=== PATIENT | female | born 1950 | race Caucasian/White ===

== ENCOUNTER → 2016-05-13 | Outpatient (REF) | payer MEDICARE, MEDICAID ==
[2016-05-13 12:22] LABS: ALBUMIN 3.6 GM/DL (3.2-5.2); ALBUMIN/GLOBULIN RATIO 1.03 (1.00-1.93); BILIRUBIN,TOTAL 0.5 MG/DL (0.2-1.0); CALCIUM LEVEL 9.3 MG/DL (8.8-10.2); CREATININE FOR GFR 1.02 MG/DL (0.55-1.02); GLOMERULAR FILTRATION RATE 57.4 (>45); POTASSIUM SERUM 4.2 MEQ/L (3.5-5.1); TOTAL PROTEIN 7.1 GM/DL (6.4-8.2)
== END ==
LOC: M SFHCPLAZ 09:44
PROVIDERS: ATTEND Nurse Practitioner Family
DX: I10 Essential (primary) hypertension (principal); E55.9 Vitamin D deficiency, unspecified

== ENCOUNTER → 2016-09-17 | Outpatient (REF) | payer MEDICARE, MEDICAID ==
[2016-09-17 11:54] LABS: CALCIUM LEVEL 9.9 MG/DL (8.8-10.2); CREATININE FOR GFR 1.17 MG/DL (0.55-1.02); POTASSIUM SERUM 4.9 MEQ/L (3.5-5.1)
== END ==
LOC: M SFHCPLAZ 08:58
PROVIDERS: ATTEND Nurse Practitioner Family
DX: I10 Essential (primary) hypertension (principal); E55.9 Vitamin D deficiency, unspecified

== ENCOUNTER → 2016-10-08 | Outpatient (CLI) | payer MEDICARE, MEDICAID ==
--- NOTE | 2016-10-08 15:29 | REPMRS ---
Patient History The patient states she had a clinical breast exam in 10/04 Patient is postmenopausal and is nulliparous. Family history of unknown cancer in sister. Digital Woman Screen Mammo: October 08, 2016 - Exam #: [id number] Bilateral CC and MLO view(s) were taken. Technologist: Amie Huff, Technologist Prior study comparison: January 08, 2015, digital woman screen mammo performed at [facility] to [facility]. August 04, 2013, digital woman screen mammo performed at [facility] to [facility]. FINDINGS: There are scattered fibroglandular densities. There has been no change in the appearance of the mammogram from the prior studies. There is a mild amount of residual fibroglandular tissue which is fairly symmetric. There is no interval development of dominant mass, architectural distortion, or clustered microcalcification suggestive of malignancy. ASSESSMENT: BI-RADS/ACR category 1 mammogram. Negative. Recommendation Routine screening mammogram in 1 year (for women over age 40). This mammogram was interpreted with the aid of an FDA-approved computer-aided dectection system. Electronically Signed By: Tavares Bradley MD 10/08/16 [id number]
--- NOTE | 2016-10-14 15:17 | DEXA ---
AP SPINE L1 - L4 1.094 -0.8 0.8 LT FEMUR TOTAL 0.908 -0.8 0.6 RT FEMUR TOTAL 0.870 -1.1 0.3 TOTAL BODY TOTAL OTHER DUAL FEMUR FRAX* ASSESSMENT Risk factors: None. 10 year probability of fracture Major osteoporotic fracture 10.6 % Hip fracture 1.9 % COMMENTS: Normal bone densitometry of the spine. There is low bone density of the hips. FOLLOW-UP: Recommendation for the next bone density exam: 2 years. ELLE
== END ==
LOC: M WHC 12:45
PROVIDERS: ATTEND Nurse Practitioner Family
DX: Z12.31 Encounter for screening mammogram for malignant neoplasm of breast (principal); Z13.820 Encounter for screening for osteoporosis; M81.0 Age-related osteoporosis without current pathological fracture
CPT/HCPCS: 77080; G0202

== ENCOUNTER → 2017-01-26 | Outpatient (REF) | payer MEDICARE, MEDICAID ==
[2017-01-26 12:49] LABS: ALBUMIN 3.7 GM/DL (3.2-5.2); BILIRUBIN,TOTAL 0.4 MG/DL (0.2-1.0); CALCIUM LEVEL 9.3 MG/DL (8.8-10.2); CREATININE FOR GFR 1.11 MG/DL (0.55-1.02); POTASSIUM SERUM 4.2 MEQ/L (3.5-5.1); TOTAL PROTEIN 7.4 GM/DL (6.4-8.2)
[2017-01-26 13:28] LABS: BASO # 0.1 10^3/uL (0.0-0.2); BASO % 0.6 % (0.0-1.0); EOS # 0.1 10^3/uL (0.0-0.50); EOS % 0.9 % (0.0-3.0); IMMATURE GRANULOCYTE % 0.5 % (0-0); LYMPH % 15.9 % (24.0-44.0); MEAN CORPUSCULAR HEMOGLOBIN 27.4 pg (27.0-33.0); MEAN CORPUSCULAR HGB CONC 31.3 g/dl (32.0-36.5); MEAN CORPUSCULAR VOLUME 87.7 fl (80.0-96.0); MONO # 0.6 10^3/uL (0.0-0.8); MONO % 4.8 % (0.0-5.0); NEUTROPHILS # 9.8 10^3/uL (1.8-7.7); NEUTROPHILS % 77.3 % (36.0-66.0); PLATELET COUNT, AUTOMATED 493 10^3/uL (150-450); RED CELL DISTRIBUTION WIDTH 13.8 % (11.5-14.5); WHITE BLOOD COUNT 12.7 10^3/uL (4.0-10.0)
[2017-01-26 13:32] LABS: ADD MANUAL DIFFER NO; DIFF SLIDE NUMBER 136
== END ==
LOC: M SFHCPLAZ 09:01
PROVIDERS: ATTEND Nurse Practitioner Family
DX: Z00.00 Encounter for general adult medical examination without abnormal findings (principal); I10 Essential (primary) hypertension; E78.2 Mixed hyperlipidemia

== ENCOUNTER 2017-04-29 14:26 | Inpatient (IN) | payer MEDICARE, MEDICAID ==
[2017-04-29 16:57] LABS: BASO # 0.1 10^3/uL (0.0-0.2); BASO % 0.5 % (0.0-1.0); EOS # 0.2 10^3/uL (0.0-0.50); EOS % 1.4 % (0.0-3.0); HEMATOCRIT 44.1 % (36.0-47.0); HEMOGLOBIN 14.4 g/dl (12.0-16.0); IMMATURE GRANULOCYTE # 0.1 10^3/uL (0-0); IMMATURE GRANULOCYTE % 0.6 % (0-0); LYMPH # 1.7 10^3/uL (1.5-4.5); MEAN CORPUSCULAR HEMOGLOBIN 27.7 pg (27.0-33.0); MEAN CORPUSCULAR HGB CONC 32.7 g/dl (32.0-36.5); MEAN CORPUSCULAR VOLUME 84.8 fl (80.0-96.0); MONO # 0.6 10^3/uL (0.0-0.8); MONO % 5.9 % (0.0-5.0); NEUTROPHILS # 7.9 10^3/uL (1.8-7.7); NEUTROPHILS % 75.6 % (36.0-66.0); PLATELET COUNT, AUTOMATED 444 10^3/uL (150-450); RED CELL DISTRIBUTION WIDTH 13.8 % (11.5-14.5); WHITE BLOOD COUNT 10.5 10^3/uL (4.0-10.0)
[2017-04-29 17:22] LABS: ANION GAP 10 MEQ/L (8-16); BLOOD UREA NITROGEN 25 MG/DL (7-18); CALCIUM LEVEL 9.2 MG/DL (8.8-10.2); CARBON DIOXIDE LEVEL 27 MEQ/L (21-32); CHLORIDE LEVEL 106 MEQ/L (98-107); CPK CREATINE PHOSPHOKINASE 74 U/L (26-192); CREATININE FOR GFR 1.02 MG/DL (0.55-1.02); GLOMERULAR FILTRATION RATE 57.2 (>45); GLUCOSE, FASTING 108 MG/DL (80-110); POTASSIUM SERUM 3.9 MEQ/L (3.5-5.1); SODIUM LEVEL 143 MEQ/L (136-145); TROPONIN I < 0.02 NG/ML (< 0.10)
[2017-04-29 17:28] LABS: CK-MB VALUE MASS 1.5 NG/ML (0.0-3.6); MB/CK RELATIVE INDEX 2.02 (< OR =4)
[2017-04-29] MEDS: LOSARTAN 50 MG TAB PO (18:38)
[2017-04-29] MEDS: amLODIPine 5 MG TAB PO (18:38)
[2017-04-29] MEDS: METOPROLOL 5 MG/5 ML VIAL IV ×4 (19:10→19:30)
[2017-04-29] MEDS: METOPROLOL TART 25 MG TABLET PO (20:00)
[2017-04-29] MEDS: NITROGLYCERIN 2% OINT 1 GM *U/D* PKT TOP (21:01)
[2017-04-29] MEDS ORDERED: ONDANSETRON 4MG/2ML VIAL (J2405) IV (23:45)
[2017-04-30] MEDS ORDERED: ENOXAPARIN 120 MG/0.8 ML SYR (J1650) SC
[2017-04-30] MEDS ORDERED: SLF 3 ML SYR IV (01:15)
[2017-04-30] MEDS: ACETAMINOPHEN TAB 650MG DOSE (2X325MG) PO ×2 (01:43→08:27)
[2017-04-30] MEDS: PANTOPRAZOLE 40MG TAB (PROTONIX) PO (01:43)
[2017-04-30] MEDS: ENOXAPARIN 120 MG/0.8 ML SYR (J1650) SC (01:44)
[2017-04-30 05:19] LABS: HEMATOCRIT 39.3 % (36.0-47.0); MEAN CORPUSCULAR HEMOGLOBIN 28.2 pg (27.0-33.0); MEAN CORPUSCULAR HGB CONC 33.1 g/dl (32.0-36.5); MEAN CORPUSCULAR VOLUME 85.2 fl (80.0-96.0); PLATELET COUNT, AUTOMATED 356 10^3/uL (150-450); RED BLOOD COUNT 4.61 10^6/uL (4.00-5.40); WHITE BLOOD COUNT 10.6 10^3/uL (4.0-10.0)
[2017-04-30 05:37] LABS: ANION GAP 10 MEQ/L (8-16); BLOOD UREA NITROGEN 22 MG/DL (7-18); CALCIUM LEVEL 8.9 MG/DL (8.8-10.2); CARBON DIOXIDE LEVEL 26 MEQ/L (21-32); CHLORIDE LEVEL 107 MEQ/L (98-107); CPK CREATINE PHOSPHOKINASE 77 U/L (26-192); CREATININE FOR GFR 0.96 MG/DL (0.55-1.02); GLOMERULAR FILTRATION RATE > 60.0 (>45); GLUCOSE, FASTING 104 MG/DL (80-110); POTASSIUM SERUM 3.1 MEQ/L (3.5-5.1); SODIUM LEVEL 143 MEQ/L (136-145); TROPONIN I 0.02 NG/ML (< 0.10)
[2017-04-30 05:43] LABS: CK-MB VALUE MASS 1.8 NG/ML (0.0-3.6); MB/CK RELATIVE INDEX 2.33 (< OR =4)
[2017-04-30] MEDS: SLF 3 ML SYR IV (05:51)
[2017-04-30] MEDS: ATORVASTATIN 20 MG TAB PO (08:26)
[2017-04-30] MEDS: LOSARTAN 50 MG TAB PO (08:26)
[2017-04-30] MEDS: amLODIPine 5 MG TAB PO (08:27)
[2017-04-30] MEDS ORDERED: ENOXAPARIN 40 MG/0.4 ML SYRINGE (J1650) SC (09:00)
[2017-04-30 11:08] LABS: CK-MB VALUE MASS 1.7 NG/ML (0.0-3.6); CPK CREATINE PHOSPHOKINASE 81 U/L (26-192); MB/CK RELATIVE INDEX 2.09 (< OR =4); TROPONIN I 0.02 NG/ML (< 0.10)
== END 2017-04-30 12:48 | disposition home or self-care (01) | DRG 309 ==
LOC: M PCU 04-30 00:48 → M ED 14:26 → M ED INP 22:19
DX: I48.0 Paroxysmal atrial fibrillation (principal); Z68.42 Body mass index [BMI] 45.0-49.9, adult; I10 Essential (primary) hypertension; E78.5 Hyperlipidemia, unspecified; K21.9 Gastro-esophageal reflux disease without esophagitis; J30.9 Allergic rhinitis, unspecified; R11.2 Nausea with vomiting, unspecified; E66.01 Morbid (severe) obesity due to excess calories; M19.90 Unspecified osteoarthritis, unspecified site; Z86.73 Personal history of transient ischemic attack (TIA), and cerebral infarction without residual deficits; Z79.899 Other long term (current) drug therapy

== ENCOUNTER → 2017-05-13 | Outpatient (REF) | payer MEDICARE ==
[2017-05-13 13:46] LABS: ANION GAP 11 MEQ/L (8-16); BLOOD UREA NITROGEN 23 MG/DL (7-18); CALCIUM LEVEL 9.4 MG/DL (8.8-10.2); CARBON DIOXIDE LEVEL 26 MEQ/L (21-32); CHLORIDE LEVEL 106 MEQ/L (98-107); GLOMERULAR FILTRATION RATE 52.4 (>45); GLUCOSE, FASTING 115 MG/DL (70-100); POTASSIUM SERUM 4.2 MEQ/L (3.5-5.1); SODIUM LEVEL 143 MEQ/L (136-145)
== END ==
LOC: M SFHCPLAZ 11:38
DX: E87.6 Hypokalemia (principal)
CPT/HCPCS: 80048

== ENCOUNTER → 2017-06-17 | Outpatient (REF) | payer MEDICARE ==
[2017-06-17 13:24] LABS: ALBUMIN 3.4 GM/DL (3.2-5.2); ALBUMIN/GLOBULIN RATIO 0.94 (1.00-1.93); ALKALINE PHOSPHATASE 120 U/L (45-117); ALT/SGPT 24 U/L (12-78); ANION GAP 9 MEQ/L (8-16); AST/SGOT 19 U/L (7-37); BILIRUBIN,TOTAL 0.5 MG/DL (0.2-1.0); BLOOD UREA NITROGEN 26 MG/DL (7-18); CALCIUM LEVEL 9.2 MG/DL (8.8-10.2); CARBON DIOXIDE LEVEL 28 MEQ/L (21-32); CHLORIDE LEVEL 105 MEQ/L (98-107); CREATININE FOR GFR 1.08 MG/DL (0.55-1.30); GLOMERULAR FILTRATION RATE 53.5 (>45); GLUCOSE, FASTING 102 MG/DL (70-100); SODIUM LEVEL 142 MEQ/L (136-145)
== END ==
LOC: M SFHCPLAZ 09:13
DX: I10 Essential (primary) hypertension (principal)
CPT/HCPCS: 80053

== ENCOUNTER → 2018-03-19 | Outpatient (CLI) | payer MEDICARE ==
[2018-03-19 11:49] LABS: BASO # 0.1 10^3/uL (0.0-0.2); BASO % 0.7 % (0.0-1.0); EOS # 0.3 10^3/uL (0.0-0.50); EOS % 2.2 % (0.0-3.0); IMMATURE GRANULOCYTE % 0.7 % (0-3.0); LYMPH # 2.3 10^3/uL (1.5-4.5); MEAN CORPUSCULAR HEMOGLOBIN 27.6 pg (27.0-33.0); MEAN CORPUSCULAR HGB CONC 31.8 g/dl (32.0-36.5); MEAN CORPUSCULAR VOLUME 86.6 fl (80.0-96.0); MONO # 0.7 10^3/uL (0.0-0.8); MONO % 5.6 % (0.0-5.0); NEUTROPHILS # 8.5 10^3/uL (1.8-7.7); NEUTROPHILS % 71.8 % (36.0-66.0); PLATELET COUNT, AUTOMATED 469 10^3/uL (150-450); RED BLOOD COUNT 5.08 10^6/uL (4.00-5.40); RED CELL DISTRIBUTION WIDTH 14.1 % (11.5-14.5); WHITE BLOOD COUNT 11.8 10^3/uL (4.0-10.0)
[2018-03-19 12:15] LABS: ALBUMIN 3.6 GM/DL (3.2-5.2); ALBUMIN/GLOBULIN RATIO 1.03 (1.00-1.93); ALKALINE PHOSPHATASE 116 U/L (45-117); ALT/SGPT 26 U/L (12-78); ANION GAP 8 MEQ/L (8-16); AST/SGOT 11 U/L (7-37); BILIRUBIN,TOTAL 0.3 MG/DL (0.2-1.0); BLOOD UREA NITROGEN 31 MG/DL (7-18); CALCIUM LEVEL 9.7 MG/DL (8.8-10.2); CARBON DIOXIDE LEVEL 27 MEQ/L (21-32); CHLORIDE LEVEL 106 MEQ/L (98-107); CREATININE FOR GFR 1.47 MG/DL (0.55-1.30); GLOMERULAR FILTRATION RATE 37.4 (>39); GLUCOSE, FASTING 109 MG/DL (70-100); POTASSIUM SERUM 4.3 MEQ/L (3.5-5.1); SODIUM LEVEL 141 MEQ/L (136-145); TOTAL PROTEIN 7.1 GM/DL (6.4-8.2)
== END ==
LOC: M LAB 11:07
DX: R09.02 Hypoxemia (principal)
CPT/HCPCS: 71046

== ENCOUNTER → 2018-03-29 | Outpatient (REF) | payer MEDICARE ==
[2018-03-29 16:06] LABS: BASO # 0.1 10^3/uL (0.0-0.2); BASO % 0.7 % (0.0-1.0); EOS # 0.3 10^3/uL (0.0-0.50); EOS % 2.7 % (0.0-3.0); HEMATOCRIT 42.7 % (36.0-47.0); HEMOGLOBIN 13.6 g/dl (12.0-15.5); IMMATURE GRANULOCYTE % 0.4 % (0-3.0); LYMPH % 17.7 % (24.0-44.0); MEAN CORPUSCULAR HEMOGLOBIN 27.6 pg (27.0-33.0); MEAN CORPUSCULAR HGB CONC 31.9 g/dl (32.0-36.5); MEAN CORPUSCULAR VOLUME 86.6 fl (80.0-96.0); MONO # 0.6 10^3/uL (0.0-0.8); MONO % 5.7 % (0.0-5.0); NEUTROPHILS % 72.8 % (36.0-66.0); PLATELET COUNT, AUTOMATED 416 10^3/uL (150-450); RED BLOOD COUNT 4.93 10^6/uL (4.00-5.40); RED CELL DISTRIBUTION WIDTH 14.6 % (11.5-14.5)
[2018-03-29 16:07] LABS: ALBUMIN 3.9 GM/DL (3.2-5.2); ALBUMIN/GLOBULIN RATIO 1.11 (1.00-1.93); ALKALINE PHOSPHATASE 101 U/L (45-117); ALT/SGPT 25 U/L (12-78); ANION GAP 7 MEQ/L (8-16); AST/SGOT 19 U/L (7-37); BILIRUBIN,TOTAL 0.4 MG/DL (0.2-1.0); BLOOD UREA NITROGEN 14 MG/DL (7-18); CALCIUM LEVEL 9.5 MG/DL (8.8-10.2); CARBON DIOXIDE LEVEL 30 MEQ/L (21-32); CHLORIDE LEVEL 102 MEQ/L (98-107); CREATININE FOR GFR 1.35 MG/DL (0.55-1.30); GLOMERULAR FILTRATION RATE 41.3 (>39); GLUCOSE, FASTING 102 MG/DL (70-100); SODIUM LEVEL 139 MEQ/L (136-145); TOTAL PROTEIN 7.4 GM/DL (6.4-8.2)
== END ==
LOC: M SFHCPLAZ 12:17
DX: N17.9 Acute kidney failure, unspecified (principal); D72.829 Elevated white blood cell count, unspecified
CPT/HCPCS: 80053

== ENCOUNTER → 2018-04-02 | Outpatient (REF) | payer MEDICARE ==
[~2018-04-02] MED LIST: AMLO5TAB4 PO; ATOR40TA75 PO; BISO5TAB5 PO; LOSA-4 PO; PANT40TA3 PO; XARE20TA PO
[2018-04-02 18:19] LABS: AMORPHOUS SEDIMENT LARGE (NEGATIVE); APPEARANCE, URINE TURBID (CLEAR); BACTERIA, URINE AUTO 3+ (NEGATIVE); BILIRUBIN, URINE AUTO 1+ (NEGATIVE); BLOOD, URINE BLOOD NEGATIVE (NEGATIVE); COLOR, URINE YELLOW (YELLOW); GLUCOSE, URINE (UA) AUTO NEGATIVE (NEGATIVE); KETONE, URINE AUTO NEGATIVE (NEGATIVE); LEUKOCYTE ESTERASE, URINE AUTO 2+ (NEGATIVE); MUCUS, URINE SMALL (NEGATIVE); NITRITE, URINE AUTO NEGATIVE (NEGATIVE); PROTEIN, URINE AUTO 2+ mg/dL (NEGATIVE); RBC, URINE AUTO 0 /HPF (0-3); SPECIFIC GRAVITY URINE AUTO 1.025 (1.002-1.035); SQUAMOUS EPITHELIAL CELL UR AU 14 /HPF (0-6); WBC, URINE AUTO 10 /HPF (0-3)
[2018-04-02 18:48] LABS: MAU/CREAT RATIO 70.5 MCG/MG (0.0-30.0)
== END ==
LOC: M SFHCPLAZ 12:46
PROVIDERS: ATTEND Nurse Practitioner Family
DX: N17.9 Acute kidney failure, unspecified (principal); I10 Essential (primary) hypertension

== ENCOUNTER → 2018-06-23 | Outpatient (REF) | payer MEDICARE ==
[~2018-06-23] MED LIST changes: -AMLO5TAB4 PO; +AMLO5TAB6 PO; -LOSA-4 PO; +LOSA100T50 PO
[2018-06-23 18:33] LABS: CREATININE FOR GFR 1.34 MG/DL (0.55-1.30); GLOMERULAR FILTRATION RATE 41.6 (>39); POTASSIUM SERUM 4.6 MEQ/L (3.5-5.1)
[2018-06-23 18:34] LABS: ALBUMIN 3.5 GM/DL (3.2-5.2); BILIRUBIN,TOTAL 0.5 MG/DL (0.2-1.0); CALCIUM LEVEL 8.4 MG/DL (8.8-10.2); CHOLESTEROL RISK RATIO 2.442 (<5); TOTAL PROTEIN 6.9 GM/DL (6.4-8.2)
[2018-06-23 19:01] LABS: BASO # 0.1 10^3/uL (0.0-0.2); BASO % 0.4 % (0.0-1.0); EOS # 0.2 10^3/uL (0.0-0.50); EOS % 1.2 % (0.0-3.0); HEMATOCRIT 41.4 % (36.0-47.0); HEMOGLOBIN 13.1 g/dl (12.0-15.5); LYMPH % 13.3 % (24.0-44.0); MEAN CORPUSCULAR HEMOGLOBIN 27.6 pg (27.0-33.0); MEAN CORPUSCULAR HGB CONC 31.6 g/dl (32.0-36.5); MEAN CORPUSCULAR VOLUME 87.2 fl (80.0-96.0); MONO # 0.8 10^3/uL (0.0-0.8); MONO % 5.2 % (0.0-5.0); NEUTROPHILS # 11.7 10^3/uL (1.8-7.7); NEUTROPHILS % 79.5 % (36.0-66.0); PLATELET COUNT, AUTOMATED 443 10^3/uL (150-450); RED BLOOD COUNT 4.75 10^6/uL (4.00-5.40); WHITE BLOOD COUNT 14.7 10^3/uL (4.0-10.0)
== END ==
LOC: M SFHCPLAZ 15:28
PROVIDERS: ATTEND Nurse Practitioner Family
DX: D72.829 Elevated white blood cell count, unspecified (principal); N18.3 Chronic kidney disease, stage 3 (moderate); E78.2 Mixed hyperlipidemia

== ENCOUNTER → 2018-08-01 | Outpatient (CLI) | payer MEDICARE ==
[~2018-08-01] MED LIST changes: +CITA20TA6 PO
--- NOTE | 2018-08-12 17:48 | SLEEPCENT ---
DATE OF PROCEDURE: 08/01/2018 REFERRING PROVIDER: ALIRIO Blunt INTERPRETATION: Nocturnal polysomnography was performed for the determination of continuous positive airway pressure (CPAP) therapy in this patient with known obstructive sleep apnea with an apnea-hypopnea index (AHI) of 18 and an respiratory disturbance index (RDI) of 26.2 on polysomnogram done in November of 2011. Titration shortly after that study showed elimination of disordered breathing events on 7 cm of water pressure. It had been noted that central events were starting to emerge at that pressure. She had not tolerated CPAP device and had turned it in, but wanted to now retry therapy. She had sleep apnea syndrome symptoms with excessive daytime sleepiness, mood disorders, snoring, observed apneas, gasping respirations, nonrestorative sleep. She also has comorbidities of a history of CVA and diabetes mellitus, type 2. A total of 8 hours and 13 minutes of data was reviewed with 375 minutes of sleep identified. Sleep latency was 10 minutes. Rapid eye movement (REM) latency was 153.5 minutes. No slow wave sleep was identified. Sleep efficiency was decreased at 77.2%. EKG showed normal sinus rhythm with an average heart rate of 64 beats per minute. Speeding and slowing was noted surrounding some respiratory events. No epileptiform discharge was observed. The patient had been fit with a ResMed AirFit F20 full-face mask of medium size, 4 cm of water pressure was applied to the circuit and the lights were dimmed. CPAP was taken to a high of 12 cm of water pressure. At that point, she was turned to bilevel therapy with the range of an inspiratory positive airway pressure (IPAP) of 14 and expiratory positive airway pressure (EPAP) of 9 to 10. A 2 liter bleed in was added. However, on reviewing the data, she appeared to do best on CPAP at 10 cm of water pressure. On that pressure, her apnea-hypopnea index (AHI) was 0 and respiratory arousal index (BLUE) was 0.6. Periodic limb movement index was 2.5. There is no carolee listed for this pressure on the printout, but it appears that her saturations were predominantly in the 90th percentile with a carolee was perhaps 88%. REM sleep was seen on this pressure with a reasonably good waveform. No supine REM sleep was observed throughout the entire titration, and, in fact, minimum supine sleep was observed during the study. IMPRESSION: 1. Obstructive sleep apnea, moderate, reasonably palliated on CPAP at 10 cm of water pressure. REM sleep was seen on this pressure with a reasonably good waveform. Minimal supine sleep was seen during the entire titration study. RECOMMENDATIONS: Recommend patient continue CPAP therapy at the above pressure via a medium ResMed AirFit F20 full face mask or mask of her preference. Clinical correlation will be necessary to ensure eradication of symptoms. Also, after the patient is tolerating CPAP therapy, recommend obtaining a nocturnal oximetry on CPAP to ensure eradication of nocturnal hypoxemia.
== END ==
LOC: M SLEEP 19:36
PROVIDERS: ATTEND Internal Medicine Pulmonary Disease
DX: G47.33 Obstructive sleep apnea (adult) (pediatric) (principal)

== ENCOUNTER → 2018-12-24 | Outpatient (REF) | payer MEDICARE ==
[2018-12-24 13:06] LABS: ALBUMIN 3.6 GM/DL (3.2-5.2); BILIRUBIN,TOTAL 0.3 MG/DL (0.2-1.0); CALCIUM LEVEL 9.7 MG/DL (8.8-10.2); CREATININE FOR GFR 1.11 MG/DL (0.55-1.30); GLOMERULAR FILTRATION RATE 51.7 (>39); POTASSIUM SERUM 4.5 MEQ/L (3.5-5.1); TOTAL PROTEIN 7.1 GM/DL (6.4-8.2)
== END ==
LOC: M SFHCPLAZ 10:16
PROVIDERS: ATTEND Nurse Practitioner Family
DX: I10 Essential (primary) hypertension (principal)

== ENCOUNTER → 2019-03-07 | Outpatient (REF) | payer MEDICARE ==
[~2019-03-07] MED LIST changes: -BISO5TAB5 PO; +BISO5TAB9 PO
[2019-03-07 14:46] LABS: APPEARANCE, URINE MANUAL TURBID (CLEAR)
[2019-03-07 14:47] LABS: COLOR, URINE MANUAL YELLOW (YELLOW)
[2019-03-07 14:50] LABS: BILIRUBIN, URINE MANUAL NEGATIVE (NEGATIVE); BLOOD URINE MANUAL NEGATIVE (NEGATIVE); GLUCOSE, URINE (UA) MANUAL NEGATIVE (NEGATIVE); KETONE, URINE MANUAL NEGATIVE (NEGATIVE); LEUKOCYTE ESTERASE, URINE MAN NEGATIVE (NEGATIVE); NITRITE, URINE MANUAL NEGATIVE (NEGATIVE); PROTEIN, URINE MANUAL NEGATIVE (NEGATIVE); UROBILINOGEN, URINE MANUAL NORMAL (NORMAL)
[2019-03-07 15:00] LABS: SQUAMOUS EPITHELIAL CELL URINE MOD AMOUNT /hpf (SMALL AMT)
[2019-03-07 15:01] LABS: AMORPHOUS SEDIMENT, URINE LARGE AMOUNT (NEGATIVE); RBC, URINE NONE SEEN /hpf (0-3); WBC, URINE 0-1 /hpf (0-3)
[2019-03-07 15:02] LABS: BACTERIA, URINE NONE SEEN; HYALINE CAST, URINE NONE SEEN /lpf (0-1)
== END ==
LOC: M SFHCPLAZ 14:19
PROVIDERS: ATTEND Family Medicine
DX: N39.41 Urge incontinence (principal)

== ENCOUNTER → 2019-03-23 | Outpatient (REF) | payer MEDICARE ==
[2019-03-23 18:06] LABS: APPEARANCE, URINE MANUAL TURBID (CLEAR); COLOR, URINE MANUAL YELLOW (YELLOW)
[2019-03-23 18:07] LABS: BILIRUBIN, URINE MANUAL NEGATIVE (NEGATIVE); BLOOD URINE MANUAL NEGATIVE (NEGATIVE); GLUCOSE, URINE (UA) MANUAL NEGATIVE (NEGATIVE); KETONE, URINE MANUAL NEGATIVE (NEGATIVE); LEUKOCYTE ESTERASE, URINE MAN TRACE (NEGATIVE); NITRITE, URINE MANUAL NEGATIVE (NEGATIVE); PH,URINE MAN 5.5 UNITS (5.0 - 7.0); PROTEIN, URINE MANUAL NEGATIVE (NEGATIVE); UROBILINOGEN, URINE MANUAL NORMAL (NORMAL)
[2019-03-23 19:41] LABS: AMORPHOUS SEDIMENT, URINE LARGE AMOUNT (NEGATIVE); BACTERIA, URINE NONE SEEN; MUCUS, URINE MOD AMOUNT (NEGATIVE); RBC, URINE NONE SEEN /hpf (0-3); SQUAMOUS EPITHELIAL CELL URINE LARGE AMOUNT /hpf (SMALL AMT)
[2019-03-23 19:42] LABS: HYALINE CAST, URINE NONE SEEN /lpf (0-1)
== END ==
LOC: M SMT 17:34
PROVIDERS: ATTEND Nurse Practitioner Women's Health
DX: N39.41 Urge incontinence (principal)

== ENCOUNTER → 2019-04-28 | Outpatient (CLI) | payer MEDICARE ==
[2019-04-28 13:36] LABS: CREATININE FOR GFR 1.15 MG/DL (0.55-1.30); GLOMERULAR FILTRATION RATE 49.5 (>39)
== END ==
LOC: M LAB 11:37
PROVIDERS: ATTEND Psychiatry & Neurology Neurology
DX: I10 Essential (primary) hypertension (principal)

== ENCOUNTER → 2019-05-31 | Outpatient (REF) | payer MEDICARE ==
[~2019-05-31] MED LIST changes: +BISO5TAB14 PO; -BISO5TAB9 PO
[2019-05-31 17:57] LABS: HEMATOCRIT 47.1 % (36.0-47.0); HEMOGLOBIN 14.4 g/dl (12.0-15.5); MEAN CORPUSCULAR HGB CONC 30.6 g/dl (32.0-36.5); MEAN CORPUSCULAR VOLUME 88.2 fl (80.0-96.0); PLATELET COUNT, AUTOMATED 397 10^3/uL (150-450); RED BLOOD COUNT 5.34 10^6/uL (4.00-5.40); WHITE BLOOD COUNT 12.1 10^3/uL (4.0-10.0)
[2019-05-31 18:11] LABS: CREATININE FOR GFR 1.02 MG/DL (0.55-1.30); GLOMERULAR FILTRATION RATE 56.9 (>39); POTASSIUM SERUM 4.2 MEQ/L (3.5-5.1)
== END ==
LOC: M SFHCPLAZ 15:11
PROVIDERS: ATTEND Family Medicine
DX: I12.9 Hypertensive chronic kidney disease with stage 1 through stage 4 chronic kidney disease, or unspecified chronic kidney disease (principal); N18.3 Chronic kidney disease, stage 3 (moderate)

== ENCOUNTER → 2019-06-23 | Outpatient (REF) | payer MEDICARE ==
[2019-06-23 12:58] LABS: BASO # 0.1 10^3/uL (0.0-0.2); BASO % 0.5 % (0.0-1.0); EOS # 0.3 10^3/uL (0.0-0.5); EOS % 2.4 % (0.0-3.0); HEMATOCRIT 44.5 % (36.0-47.0); HEMOGLOBIN 13.9 g/dl (12.0-15.5); LYMPH # 1.8 10^3/uL (1.5-5.0); LYMPH % 16.3 % (24.0-44.0); MEAN CORPUSCULAR HEMOGLOBIN 27.6 pg (27.0-33.0); MEAN CORPUSCULAR HGB CONC 31.2 g/dl (32.0-36.5); MEAN CORPUSCULAR VOLUME 88.3 fl (80.0-96.0); MONO # 0.7 10^3/uL (0.0-0.8); MONO % 5.9 % (0.0-5.0); NEUTROPHILS # 8.2 10^3/uL (1.5-8.5); NEUTROPHILS % 74.3 % (36.0-66.0); PLATELET COUNT, AUTOMATED 396 10^3/uL (150-450); RED BLOOD COUNT 5.04 10^6/uL (4.00-5.40)
== END ==
LOC: M SFHCPLAZ 09:24
PROVIDERS: ATTEND Family Medicine
DX: D72.829 Elevated white blood cell count, unspecified (principal)

== ENCOUNTER → 2019-11-28 | Outpatient (CLI) | payer MEDICARE ==
[~2019-11-28] MED LIST changes: +AMLO1TAB24 PO; -AMLO5TAB6 PO; +PANT40TA29 PO; -PANT40TA3 PO
--- NOTE | 2019-12-15 12:24 | REPMRS ---
Patient History The patient states she has not had a clinical breast exam in over a year. Patient is postmenopausal and is nulliparous. No known family history of cancer. No Hormone Replacement Therapy Digital Woman Screen Mammo: November 28, 2019 - Exam #: [id number] Bilateral CC and MLO view(s) were taken. Technologist: Amie Huff, Technologist Prior study comparison: October 08, 2016, digital woman screen mammo performed at [facility]. January 08, 2015, digital woman screen mammo performed at [facility]. August 04, 2013, digital woman screen mammo performed at [facility]. FINDINGS: The breast tissue is almost entirely fat. The Volpara volumetric breast density category is: A. There has been no change in the appearance of the mammogram from the prior studies. There is no interval development of dominant mass, architectural distortion, or grouped microcalcification typical of malignancy. 3-D tomosynthesis shows no additional findings. Assessment: BI-RADS/ACR category 1 mammogram. Negative Mammogram. Recommendation Routine screening mammogram of both breasts in 1 year (for women over age 40). This patient's Lifetime Breast Cancer RIsk is estimated at 5.4 %. This mammogram was interpreted with the aid of an FDA-approved computer-aided dectection system. Electronically Signed By: Db Ellington MD 12/15/19 [id number]
== END ==
LOC: M WHC 08:58
PROVIDERS: ATTEND Family Medicine
DX: Z12.31 Encounter for screening mammogram for malignant neoplasm of breast (principal); Z78.0 Asymptomatic menopausal state

== ENCOUNTER → 2019-11-28 | Outpatient (REF) | payer MEDICARE ==
[2020-01-10 13:21] LABS: CALCIUM LEVEL 9.4 MG/DL (8.8-10.2); CREATININE FOR GFR 1.38 MG/DL (0.55-1.30); GLOMERULAR FILTRATION RATE 40.1 (>39); POTASSIUM SERUM 4.1 MEQ/L (3.5-5.1)
== END ==
LOC: M SFHCPLAZ 09:27
PROVIDERS: ATTEND Family Medicine
DX: I10 Essential (primary) hypertension (principal)

== ENCOUNTER → 2020-01-27 | Outpatient (REF) | payer MEDICARE ==
[2020-01-27 14:35] LABS: CREATININE FOR GFR 1.52 MG/DL (0.55-1.30); GLOMERULAR FILTRATION RATE 35.9 (>39); POTASSIUM SERUM 4.2 MEQ/L (3.5-5.1)
== END ==
LOC: M PLALAB 09:29
PROVIDERS: ATTEND Family Medicine
DX: N18.30 Chronic kidney disease, stage 3 unspecified (principal)

== ENCOUNTER → 2020-02-02 | Outpatient (CLI) | payer MEDICARE ==
--- NOTE | 2020-02-02 10:18 | REP ---
INDICATION: R94.4 DECREASED CALCULATED GFR COMPARISON: None. FINDINGS: Multiple ultrasonographic images of the right kidney show the right kidney to measure 9.6 x 5.1 x 5.7 cm . The renal cortical echotexture is unremarkable. There is renal cortical thinning. There are no masses. There is good corticomedullary differentiation. There is no hydronephrosis. There are no perinephric fluid collections. In the inferior pole of the right kidney there is an 8 mm sized echogenic focus which casts a slight acoustic shadow. Multiple ultrasonographic images of the left kidney show the left kidney to measure 10.6 x 5.2 x 5.1 cm. . The renal cortical echotexture is unremarkable. There is renal cortical thinning. There are no masses. There is good corticomedullary differentiation. There is no hydronephrosis. There are no perinephric fluid collections. . IMPRESSION: 1. There is bilateral renal cortical thinning. 2. Possible 8 mm size calculus in the inferior pole of the right kidney. <Electronically signed by David Akins > 02/02/20 [id number]
== END ==
LOC: M WHC 08:57
PROVIDERS: ATTEND Family Medicine
DX: R94.4 Abnormal results of kidney function studies (principal)

== ENCOUNTER 2020-11-13 18:40 | Inpatient (IN) | payer MEDICARE, OTHER ==
[~2020-11-13] VITALS: Ht 154.9 cm; Wt 121.5 kg
--- NOTE | 2020-11-13 20:11 | REPVR ---
PROCEDURE INFORMATION: Exam: CT Head Without Contrast Exam date and time: 11/13/2020 7:48 PM Age: 70 years old Clinical indication: Dizziness; Additional info: CVA - nursing interventions must not delay CT TECHNIQUE: Imaging protocol: Computed tomography of the head without contrast. Radiation optimization: All CT scans at this facility use at least one of these dose optimization techniques: automated exposure control; mA and/or kV adjustment per patient size (includes targeted exams where dose is matched to clinical indication); or iterative reconstruction. Other technique: STROKE PROTOCOL was implemented. COMPARISON: No relevant prior studies available. FINDINGS: Brain: There is no acute cortical infarction, intracranial hemorrhage or mass. Cerebral ventricles: No significant ventriculomegaly. Paranasal sinuses: Both maxillary antra are opacified and hypoplastic.The remainder of the paranasal sinuses appear clear. Mastoid air cells: The middle ear cavities and mastoid air cells are clear. Vasculature: Atherosclerosis. Bones/joints: Unremarkable. No acute fracture. Soft tissues: Unremarkable. IMPRESSION: No acute cerebral infarction or intracranial hemorrhage. ASSESSMENT: ASPECTS ([place] Stroke Program Early CT Score) is 10. Electronically signed by: Kaylan Simmons On 11/13/2020 20:10:58 PM
--- NOTE | 2020-11-13 20:18 | REP ---
INDICATION: CVA. COMPARISON: PA lateral 03/19/2018, AP 04/29/2017. TECHNIQUE: AP portable upright FINDINGS: The exam is a rotated towards the right. That said, the lung ayala are well inflated without effusion, acute infiltrate, atelectasis or mass. Heart size mildly prominent. No vascular redistribution or edema. Ectatic aorta is exaggerated by the rotation of the chest. There are degenerative changes in the spine and shoulders. No free air under the diaphragm. IMPRESSION: 1. Tortuous ectatic aorta, appearance exaggerated by chest rotation towards the right. It is not grossly changed from 2018. 2. No definite consolidation, german edema, pleural effusion or parenchymal mass. Mild prominence of cardiac silhouette, somewhat exaggerated AP portable technique and rotation. 3. Bones demineralized with degenerative changes spine and shoulders. <Electronically signed by Quinn Noriega > 11/13/202013
[2020-11-13] MEDS: DOCUSATE SODIUM 100MG CAPSULE PO SCH (21:00)
[2020-11-13 21:05] LABS: BASO # 0.1 10^3/uL (0.0-0.2); BASO % 0.4 % (0.0-1.0); EOS # 0.2 10^3/uL (0.0-0.5); EOS % 1.8 % (0.0-3.0); HEMATOCRIT 42.5 % (36.0-47.0); HEMOGLOBIN 13.3 g/dl (12.0-15.5); LYMPH # 1.5 10^3/uL (1.5-5.0); LYMPH % 11.9 % (24.0-44.0); MEAN CORPUSCULAR HEMOGLOBIN 27.4 pg (27.0-33.0); MEAN CORPUSCULAR HGB CONC 31.3 g/dl (32.0-36.5); MEAN CORPUSCULAR VOLUME 87.4 fl (80.0-96.0); MONO # 0.7 10^3/uL (0.0-0.8); MONO % 5.4 % (2.0-8.0); NEUTROPHILS # 9.9 10^3/uL (1.5-8.5); NEUTROPHILS % 79.8 % (36.0-66.0); PLATELET COUNT, AUTOMATED 371 10^3/uL (150-450); RED BLOOD COUNT 4.86 10^6/uL (4.00-5.40); WHITE BLOOD COUNT 12.4 10^3/uL (4.0-10.0)
[2020-11-13 21:16] LABS: INR 1.03; PROTHROMBIN TIME 13.7 SECONDS (12.5-14.3)
[2020-11-13 21:17] LABS: PARTIAL THROMBOPLASTIN TIME 31.1 SECONDS (24.2-38.5)
[2020-11-13 21:31] LABS: CK-MB VALUE MASS 2.8 NG/ML (<3.6); CPK CREATINE PHOSPHOKINASE 249 U/L (26-192); MB/CK RELATIVE INDEX 1.12 (< OR =4); TROPONIN I < 0.02 NG/ML (< 0.10)
[2020-11-13] MEDS ORDERED: LOSARTAN 50MG TABLET PO ONE (21:55)
[2020-11-13] MEDS ORDERED: bisoproloL fumarate 5 MG TAB PO ONE (21:55)
--- NOTE | 2020-11-13 22:43 | HPEPDOC ---
[facility] Medical History & Physical Date of Admission Nov 13, 2020 Date of Service: Nov 13, 2020 History and Physical CHIEF COMPLAINT: Syncope HISTORY OF PRESENT ILLNESS: 70-year-old female presents to emergency department after 911 was called because she was found on the floor by her neighbor. Patient tells me she has a problem with urinary incontinence and there is often urine on the floor in her house she says she slipped on the urine fell on the floor and because of her large body habitus wasn't able to get up for several hours. She tells me she did not pass out and doesn't think she hit her head although she does admit that there is a period of time that she does not remember so perhaps she did pass out. She denies any chest pain or shortness of breath. Tells me she's back to her baseline now. Admits to me that she hasn't taken her medications for the past several days. In the emergency department CT head was negative for intracranial bleeding. Patient was found to have hypertensive urgency. Patient will be admitted to the hospitalist service for workup of syncope and hypertensive urgency. PAST MEDICAL/SURGICAL HISTORY: Hypertension Obesity Hyperlipidemia Paroxysmal atrial fibrillation on Xarelto obesity hypoventilation syndrome refuses to use CPAP Hemorrhagic CVA 2010 Hysterectomy Cataract surgery SOCIAL HISTORY: Denies alcohol use Denies tobacco use Denies illicit drug use FAMILY HISTORY: Reviewed and none contributory to this admission ALLERGIES: Please see below. REVIEW OF SYSTEMS: 10 point review of systems complete all negative otherwise stated in HPI HOME MEDICATIONS: Please see below. PHYSICAL EXAMINATION: Constitutional: Awake and alert, in no apparent distress, poor hygiene. Bad body odor. Obese. ENT: Sclera are clear. Mucosa is moist. Respiratory: Lungs diminished breath sounds bilaterally. No respiratory distress. Cardiovascular: Heart rate irregularly irregular Gastrointestinal: Abdomen is soft, obese, non distended, non tender, BS present. Musculoskeletal: Dependent lower extremity edema Neurologic: No focal neurological deficit. Mental Status: A&O x3, normal affect LABORATORY DATA: See below. IMAGING: See chart MICROBIOLOGY: Please see below. ASSESSMENT/PLAN 70-year-old female brought into the hospital due to syncope found to have hypertensive urgency admitted for further medical workup and management. # Hypertensive urgency: Due to medication noncompliance hasn't taken her meds in 2 days. Continue home medications. PCU. IV hydralazine if needed. # Syncope: Unclear if this was true syncope or patient just slipped. Follow-up orthostats. Telemetry monitoring. Fu echo. PT. # A. fib: Rate controlled. Continue bisoprolol. Continue anticoagulation was Xarelto. # Hypertension: Continue home meds. Monitor and titrate # Hyperlipidemia: Continue atorvastatin # hx CVA: Continue Xarelto and atorvastatin. # Depression: Continue citalopram # Urinary incontinence: Continue oxybutynin # GERD: Continue pantoprazole # DVT prophylaxis: Lovenox [facility] Hospitalist Vital Signs Vital Signs Date Time Temp Pulse Resp B/P (MAP) Pulse Ox O2 Delivery O2 Flow Rate FiO2 11/13/20 22:11 224/102 11/13/20 19:00 99.3 79 24 99 Nasal Cannula 4.0 Laboratory Data Labs 24H Laboratory Tests 2 11/13/20 20:28: Immature Granulocyte % (Auto) 0.7, Neutrophils (%) (Auto) 79.8H, Lymphocytes (%) (Auto) 11.9L, Monocytes (%) (Auto) 5.4, Eosinophils (%) (Auto) 1.8, Basophils (%) (Auto) 0.4, Neutrophils # (Auto) 9.9H, Lymphocytes # (Auto) 1.5, Monocytes # (Auto) 0.7, Eosinophils # (Auto) 0.2, Basophils # (Auto) 0.1, Nucleated Red Blood Cells % (auto) 0.0, Prothrombin Time 13.7, Prothromb Time International Ratio 1.03, Activated Partial Thromboplast Time 31.1, Total Creatine Kinase 249H, Creatine Kinase MB 2.8, Creatine Kinase MB Relative Index 1.12, Troponin I < 0.02 11/13/20 20:49: POC Glucose (Misc Panel) 120H, POC Sodium (Misc Panel) 142, POC Potassium (Misc Panel) 3.7, POC Chloride (Misc Panel) 101, POC Total CO2 (Misc Panel) 25.0, POC Blood Urea Nitrogen (Misc Panel 22, POC Ionized Calcium (Misc Panel) 4.7, POC Creatinine (Misc Panel) 1.1, POC Hematocrit (Misc Panel) 43.0 CBC/BMP Laboratory Tests 11/13/20 20:28 Home Medications Scheduled Amlodipine Besylate (Amlodipine Besylate) 10 Mg Tablet, 10 MG PO DAILY Atorvastatin Calcium (Atorvastatin Calcium) 40 Mg Tab, 40 MG PO DAILY Bisoprolol Fumarate (Bisoprolol Fumarate) 5 Mg Tablet, 5 MG PO DAILY Calcitriol (Rocaltrol) 0.25 Mcg Capsule, 0.25 MCG PO QWEEK SUNDAYS Chlorthalidone (Chlorthalidone) 25 Mg Tablet, 12.5 MG PO DAILY Cholecalciferol (Vitamin D3) (Vitamin D3) 25 Mcg Capsule, 25 MCG PO DAILY Citalopram Hydrobromide (Citalopram HBr) 20 Mg Tablet, 20 MG PO DAILY Loratadine (Loratadine) 10 Mg Tablet, 10 MG PO DAILY Losartan Potassium (Losartan Potassium) 25 Mg Tablet, 25 MG PO DAILY Oxybutynin Chloride (Oxybutynin Chloride ER) 15 Mg Tab.er.24, 15 MG PO DAILY Pantoprazole Sodium (Pantoprazole Sodium) 40 Mg Tab, 40 MG PO DAILY Rivaroxaban (Xarelto) 15 Mg Tablet, 15 MG PO DAILY Allergies Coded Allergies: codeine (Verified Allergy, Intermediate, HIVES, 07/30/18) ENVIRONMENTAL (Unverified Allergy, Unknown, 06/04/09) TRAMAINE GRAHAM MD Nov 13, 2020 22:43
[2020-11-13 23:35] LABS: RSV AMPLIFICATION NEGATIVE (NEGATIVE)
[2020-11-13] MEDS ORDERED: LOSA25TA14 PO (23:35)
[2020-11-13] MEDS ORDERED: ROCA0.25 PO (23:35)
[2020-11-13] MEDS ORDERED: BISO5TAB14 PO (23:35)
[2020-11-13] MEDS ORDERED: D-101000 PO (23:35)
[2020-11-13] MEDS ORDERED: LORA-622 PO (23:35)
[2020-11-13] MEDS ORDERED: AMLO1TAB25 PO (23:35)
[2020-11-13] MEDS ORDERED: OXYB15TA14 PO (23:35)
[2020-11-13] MEDS ORDERED: XARE15TA PO (23:35)
[2020-11-13] MEDS ORDERED: CHLO125TA PO (23:35)
[2020-11-14 01:30] VITALS: BP 142/74
[2020-11-14] MEDS ORDERED: MOM 30ML SUSPENSION UDC PO PRN (01:40)
[2020-11-14] MEDS ORDERED: ACETAMINOPHEN TAB 650MG DOSE (2X325MG) PO PRN (01:40)
[2020-11-14] MEDS ORDERED: hydrALAZINE 20MG/ML 1ML VIAL (J0360 PER 20MG) IV PRN (01:45)
[2020-11-14 06:04] LABS: HEMATOCRIT 41.5 % (36.0-47.0); HEMOGLOBIN 13.2 g/dl (12.0-15.5); MEAN CORPUSCULAR HEMOGLOBIN 27.7 pg (27.0-33.0); MEAN CORPUSCULAR HGB CONC 31.8 g/dl (32.0-36.5); PLATELET COUNT, AUTOMATED 349 10^3/uL (150-450); RED BLOOD COUNT 4.77 10^6/uL (4.00-5.40); WHITE BLOOD COUNT 10.7 10^3/uL (4.0-10.0)
[2020-11-14 06:08] VITALS: BP 165/74
[2020-11-14 06:35] LABS: BILIRUBIN,TOTAL 0.5 MG/DL (0.2-1.0); CALCIUM LEVEL 9.4 MG/DL (8.8-10.2); CREATININE FOR GFR 0.99 MG/DL (0.55-1.30); GLOMERULAR FILTRATION RATE 58.7 (>39); POTASSIUM SERUM 3.7 MEQ/L (3.5-5.1); TOTAL PROTEIN 6.2 GM/DL (6.4-8.2)
[2020-11-14 08:00] VITALS: BP 150/70
[2020-11-14] MEDS ORDERED: bisoproloL fumarate 5 MG TAB PO SCH (09:00)
[2020-11-14] MEDS: LOSARTAN 25 MG TAB PO SCH (09:24)
[2020-11-14] MEDS: ATORVASTATIN 20 MG TAB PO SCH (09:24)
[2020-11-14] MEDS: DOCUSATE SODIUM 100MG CAPSULE PO SCH ×2 (09:24→21:04)
[2020-11-14] MEDS: PANTOPRAZOLE 40MG TAB (PROTONIX) PO SCH (09:24)
[2020-11-14] MEDS: CitaloPRAM (CeleXA) 20 MG TAB PO SCH (09:25)
[2020-11-14] MEDS: oxyBUTYnin *DITROPAN XL* 5 MG TABCR PO SCH (09:25)
[2020-11-14] MEDS: RIVAROXABAN 15 MG TAB (XARELTO) PO SCH (09:25)
[2020-11-14] MEDS: CHLORTHALIDONE 12.5MG PER 1/2 TABLET PO SCH (09:25)
--- NOTE | 2020-11-14 10:23 | REP ---
INDICATION: Assess stenosis TECHNIQUE: Carotid ultrasonography was performed bilaterally FINDINGS: Right: CCA systolic: 59.4 centimeters/second CCA diastolic: 7.2 centimeters/second ICA systolic: 33.6 centimeters/second ICA diastolic: 10 centimeters/second ICA CCA ratio: 0.57 Left: CCA systolic: 70.9 centimeters/second CCA diastolic: 5.2 centimeters/second ICA systolic: 41.0 centimeters/second ICA diastolic: 14.3 centimeters/second ICA CCA ratio: 0.58 Vertebral artery: Right: Antegrade flow left: Antegrade flow A minimal amount of barely perceptible plaque is seen but some of which casts a slight acoustic shadow. IMPRESSION: According to the SRU criteria there is less than 50% stenosis of the internal carotid artery bilaterally. <Electronically signed by David Akins > 11/14/20 [id number]
[2020-11-14] MEDS ORDERED: SLF 3 ML SYR IV PRN (10:25)
[2020-11-14 12:00] VITALS: BP_SYST 129; BP_SYST 140; BP_SYST 185; BP_DIAS 86; BP_DIAS 95; BP_DIAS 96
[2020-11-14] MEDS: SLF 3 ML SYR IV SCH ×2 (14:00→21:04)
--- NOTE | 2020-11-14 17:14 | IPNPDOC ---
Subjective Date Seen The patient was seen on 11/14/20. Subjective Chief Complaint/HPI Patient reports that she slipped while she was getting out of bed then could not get up and lay on the floor. She is unsure if she passed out. She reports she missed her BP meds for 2 days but when i go over her external medication history it looks like she has not picked up her amlodipine, and bisoprolol since april. She did leaf size picker her losartan and chlorthalidone in August. Objective Physical Examination General Exam: Positive: Alert, Cooperative, No Acute Distress Eye Exam: Positive: PERRLA, Conjunctiva & lids normal, EOMI; Negative: Sclera icteric ENT Exam: Positive: Atraumatic, Mucous membr. moist/pink, Pharynx Normal Neck Exam: Positive: Supple, JVD; Negative: thyromegaly Chest Exam: Positive: Wheezing, Diminished Heart Exam: Positive: Rate Normal, Regular Rhythm, Normal S1, Normal S2; Negative: Murmurs, Rubs Abdomen Exam: Positive: Normal bowel sounds, Soft, Other (obese); Negative: Tenderness Extremity Exam: Positive: Edema; Negative: Clubbing, Cyanosis Assessment /Plan Assessment 70-year-old female with PMH of Hypertension, morbid Obesity with BMI of 49.5, Hyperlipidemia, Paroxysmal atrial fibrillation on Xarelto, obesity hypoventilation syndrome, AZALIA refuses to use CPAP Hemorrhagic CVA 2010, urinary incontinence presents to emergency department after 911 was called because she was found on the floor by her neighbor. This was most likely is a mechanical fall as per patient's description however she is uncerttin if she passed out or not. She was found to have hypertensive urgency in ED. She was admitted for Syncope and hypertensive urgency. In the emergency department CT head was negative for intracranial bleeding. Patient was found to have hypertensive urgency. Patient will be admitted to the hospitalist service for workup of syncope and hypertensive urgency. Hypertensive urgency: Due to medication noncompliance hasn't taken her meds in 2 days. Continue home medications. Syncope: Unclear if this was true syncope or patient just slipped. Telemetry monitoring. Fu echo. PT. Orthostats negative. A. fib: Rate controlled. Continue bisoprolol. Continue anticoagulation was Xarelto. Hypertension: Continue amlodipine, bisoprolol, losartan and chlorthalidone. Hyperlipidemia: Continue atorvastatin hx CVA: Continue Xarelto and atorvastatin. Depression: Continue citalopram Urinary incontinence: Continue oxybutynin GERD: Continue pantoprazole Plan/VTE VTE Prophylaxis Ordered?: Yes VS, I&O, 24H, Fishbone Vital Signs/I&O Vital Signs Date Time Temp Pulse Resp B/P (MAP) Pulse Ox O2 Delivery O2 Flow Rate FiO2 11/14/20 12:00 140/86 (104) 11/14/20 12:00 64 11/14/20 12:00 2.0 11/14/20 09:15 89 Room Air 11/14/20 08:00 97.4 7 I&O- Last 24 Hours up to 6 AM 11/14/20 06:00 Intake Total 0 ml Balance 0 ml Laboratory Data 24H LABS Laboratory Tests 2 11/13/20 20:28: Immature Granulocyte % (Auto) 0.7, Neutrophils (%) (Auto) 79.8H, Lymphocytes (%) (Auto) 11.9L, Monocytes (%) (Auto) 5.4, Eosinophils (%) (Auto) 1.8, Basophils (%) (Auto) 0.4, Neutrophils # (Auto) 9.9H, Lymphocytes # (Auto) 1.5, Monocytes # (Auto) 0.7, Eosinophils # (Auto) 0.2, Basophils # (Auto) 0.1, Nucleated Red Blood Cells % (auto) 0.0, Prothrombin Time 13.7, Prothromb Time International Ratio 1.03, Activated Partial Thromboplast Time 31.1, Total Creatine Kinase 249H, Creatine Kinase MB 2.8, Creatine Kinase MB Relative Index 1.12, Troponin I < 0.02 11/13/20 20:49: POC Glucose (Misc Panel) 120H, POC Sodium (Misc Panel) 142, POC Potassium (Misc Panel) 3.7, POC Chloride (Misc Panel) 101, POC Total CO2 (Misc Panel) 25.0, POC Blood Urea Nitrogen (Misc Panel 22, POC Ionized Calcium (Misc Panel) 4.7, POC Creatinine (Misc Panel) 1.1, POC Hematocrit (Misc Panel) 43.0 11/13/20 22:40: Coronavirus (COVID-19)(PCR) NEGATIVE, Influenza Type A (RT-PCR) NEGATIVE, Influenza Type B (RT-PCR) NEGATIVE, Respiratory Syncytial Virus (PCR) NEGATIVE 11/14/20 05:35: Nucleated Red Blood Cells % (auto) 0.0, Anion Gap 7L, Glomerular Filtration Rate 58.7, Calcium Level 9.4, Total Bilirubin 0.5, Aspartate Amino Transf (AST/SGOT) 20, Alanine Aminotransferase (ALT/SGPT) 30, Alkaline Phosphatase 96, Total Protein 6.2L, Albumin 3.0L, Albumin/Globulin Ratio 0.9L CBC/BMP Laboratory Tests 11/13/20 20:28 11/14/20 05:35 LESLIE GENAO MD Nov 14, 2020 17:14
[2020-11-14 20:00] VITALS: BP 149/78
[2020-11-15] VITALS: BP 159/72
[2020-11-15 04:00] VITALS: BP 176/82
[2020-11-15] MEDS: SLF 3 ML SYR IV SCH ×3 (06:03→20:36)
--- NOTE | 2020-11-15 07:26 | ECGEPIP ---
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
[2020-11-15 08:00] VITALS: BP 180/83
[2020-11-15] MEDS: CitaloPRAM (CeleXA) 20 MG TAB PO SCH (08:31)
[2020-11-15] MEDS: LOSARTAN 25 MG TAB PO SCH (08:32)
[2020-11-15] MEDS: ATORVASTATIN 20 MG TAB PO SCH (08:32)
[2020-11-15] MEDS: oxyBUTYnin *DITROPAN XL* 5 MG TABCR PO SCH (08:32)
[2020-11-15] MEDS: RIVAROXABAN 15 MG TAB (XARELTO) PO SCH (08:34)
[2020-11-15] MEDS: PANTOPRAZOLE 40MG TAB (PROTONIX) PO SCH (08:34)
[2020-11-15] MEDS: CHLORTHALIDONE 12.5MG PER 1/2 TABLET PO SCH (08:34)
[2020-11-15] MEDS: BISOPROLOL FUM 2.5 MG PER 1/2TAB PO SCH (09:00)
[2020-11-15] MEDS: DOCUSATE SODIUM 100MG CAPSULE PO SCH ×2 (09:00→20:36)
--- NOTE | 2020-11-15 10:07 | IPNPDOC ---
Subjective Date Seen The patient was seen on 11/15/20. Subjective Chief Complaint/HPI No complaints this morning. Reports that she uses oxygen as needed at home. She just has a portable cylinder. Does not have any concentrator. Objective Physical Examination General Exam: Positive: Alert, Cooperative, No Acute Distress Eye Exam: Positive: PERRLA, Conjunctiva & lids normal, EOMI; Negative: Sclera icteric ENT Exam: Positive: Atraumatic, Mucous membr. moist/pink, Pharynx Normal Neck Exam: Positive: Supple, JVD; Negative: thyromegaly Chest Exam: Positive: Wheezing, Diminished Heart Exam: Positive: Rate Normal, Regular Rhythm, Normal S1, Normal S2; Negative: Murmurs, Rubs Abdomen Exam: Positive: Normal bowel sounds, Soft, Other (obese); Negative: Tenderness Extremity Exam: Positive: Edema; Negative: Clubbing, Cyanosis Assessment /Plan Assessment 70-year-old female with PMH of Hypertension, morbid Obesity with BMI of 49.5, Hyperlipidemia, Paroxysmal atrial fibrillation on Xarelto, obesity hypoventilation syndrome, AZALIA refuses to use CPAP Hemorrhagic CVA 2010, urinary incontinence presents to emergency department after 911 was called because she was found on the floor by her neighbor. This was most likely is a mechanical fall as per patient's description however she is uncertain if she passed out or not. She was found to have hypertensive urgency in ED. She was admitted for Syncope and hypertensive urgency. Hypertensive urgency: Due to medication noncompliance. Continue home medications. Possible syncope Likely vasovagal Telemetry no cardiac arrhythmias to explain syncopal episode, echo has been done, carotid Doppler less than 50% occlusion Orthostats negative. Fall at home This was likely a mechanical fall as per patient's description how it happened when she was trying to get out of bed and slipped down the mattress. A. fib: Rate controlled. Continue bisoprolol. Continue anticoagulation was Xarelto. Dose of metoprolol lowered as bradycardic to 40s when asleep Hypertension: Continue amlodipine, bisoprolol, losartan and chlorthalidone. Hyperlipidemia: Continue atorvastatin hx CVA: Continue Xarelto and atorvastatin. Depression: Continue citalopram Urinary incontinence: Continue oxybutynin GERD: Continue pantoprazole Morbid obesity/AZALIA Untreated. Refused CPAP before Complicating residential oxygen Patient reports that she has a small tank with the wire which she sometimes uses if she is short of breath. Plan/VTE VTE Prophylaxis Ordered?: Yes VS, I&O, 24H, Fishbone Vital Signs/I&O Vital Signs Date Time Temp Pulse Resp B/P (MAP) Pulse Ox O2 Delivery O2 Flow Rate FiO2 11/15/20 08:32 180/83 11/15/20 08:00 97.2 56 22 97 Nasal Cannula 2.0 I&O- Last 24 Hours up to 6 AM 11/15/20 06:00 Intake Total 1610 ml Output Total 1000 ml Balance 610 ml LESLIE GENAO MD Nov 15, 2020 10:07
[2020-11-15 12:00] VITALS: BP 117/65
[2020-11-15 16:00] VITALS: BP 137/78
[2020-11-15] MEDS: ALBUTEROL SULFATE 2.5 MG/0.5 ML INH NEB SOLN NEB SCH ×2 (17:49→20:13)
--- NOTE | 2020-11-15 18:49 | ECHO ---
ECHOCARDIOGRAM DATE OF PROCEDURE: 11/14/2020 Age: 70 Gender: Female Height: 61 inches Weight: 262 pounds Body surface area: 2.12 m2 PATIENT LOCATION: Inpatient, progressive care unit (PCU), Room 3223 REFERRING PHYSICIAN: Travis Pang M.D. INDICATION: Syncope. MEASUREMENTS: 2D Measurements: RV - 3.2 cm LV - 4.4 cm Septum 1.1 cm Posterior wall 1.1 cm Aortic root 2.9 cm LA - 3.4 cm LVEF 65% Doppler Measurements: AV - 1.0 m/sec LVOT - 0.9 m/sec LVOT diameter 1.9 cm MV-E 51, A 53, EA ratio 1 Early mitral deceleration time 218 msec E prime medial 6 A prime medial 8.4 E prime lateral 5 PV - 0.85 m/sec Pulmonary artery acceleration time 131 msec PASP 22 mmHg IVC - could not be visualized. COMMENTS: Sinus bradycardia without intraventricular conduction disturbance. Extremely difficult study in light of the patient's body habitus. The above measurements are suspect. We attempted to perform M-mode and 2-dimensional echocardiography with pulse, continuous wave, color flow and tissue Doppler studies. Left ventricular size, wall thickness and wall motion appear to be normal. Left atrial size was upper limits of normal with grade 1 left ventricular (LV) diastolic dysfunction, but currently normal estimated mean left atrial pressure. Normal right heart chamber sizes and motion and Doppler sign of pulmonary arterial pressure. Her inferior vena cava (IVC) could not be visualized to estimate central venous pressure. Normal aortic dimensions. Technical difficulty defining lobular structures precisely, but these did not appear significantly abnormal. There was no Doppler evidence of significant aortic stenosis or insufficiency or mitral stenosis or insufficiency. We could not perform Doppler interrogation of her tricuspid valve to further estimate her right ventricular systolic pressure. We obviously could not rule out any intracardiac mass, but there was no obvious abnormality. No apparent pericardial effusion.
[2020-11-15 20:00] VITALS: BP 152/70
[2020-11-16] VITALS (7 sets, daily range): BP systolic 149–192; BP diastolic 67–102
[2020-11-16 04:04] LABS: BASO # 0.1 10^3/uL (0.0-0.2); BASO % 0.5 % (0.0-1.0); EOS # 0.4 10^3/uL (0.0-0.5); EOS % 3.8 % (0.0-3.0); HEMATOCRIT 42.4 % (36.0-47.0); HEMOGLOBIN 13.3 g/dl (12.0-15.5); LYMPH # 2.2 10^3/uL (1.5-5.0); LYMPH % 23.6 % (24.0-44.0); MEAN CORPUSCULAR HEMOGLOBIN 27.2 pg (27.0-33.0); MEAN CORPUSCULAR HGB CONC 31.4 g/dl (32.0-36.5); MEAN CORPUSCULAR VOLUME 86.7 fl (80.0-96.0); MONO # 0.7 10^3/uL (0.0-0.8); MONO % 7.1 % (2.0-8.0); NEUTROPHILS % 64.1 % (36.0-66.0); PLATELET COUNT, AUTOMATED 344 10^3/uL (150-450); RED BLOOD COUNT 4.89 10^6/uL (4.00-5.40); WHITE BLOOD COUNT 9.4 10^3/uL (4.0-10.0)
[2020-11-16 04:25] LABS: CALCIUM LEVEL 8.9 MG/DL (8.8-10.2); CREATININE FOR GFR 1.2 MG/DL (0.55-1.30)
[2020-11-16] MEDS: SLF 3 ML SYR IV SCH ×2 (05:39→13:12)
[2020-11-16] MEDS: ALBUTEROL SULFATE 2.5 MG/0.5 ML INH NEB SOLN NEB SCH (07:49)
[2020-11-16] MEDS: CitaloPRAM (CeleXA) 20 MG TAB PO SCH (09:05)
[2020-11-16] MEDS: CHLORTHALIDONE 12.5MG PER 1/2 TABLET PO SCH (09:05)
[2020-11-16] MEDS: RIVAROXABAN 15 MG TAB (XARELTO) PO SCH (09:05)
[2020-11-16] MEDS: ATORVASTATIN 20 MG TAB PO SCH (09:06)
[2020-11-16] MEDS: LOSARTAN 25 MG TAB PO SCH (09:06)
[2020-11-16] MEDS: oxyBUTYnin *DITROPAN XL* 5 MG TABCR PO SCH (09:06)
[2020-11-16] MEDS: PANTOPRAZOLE 40MG TAB (PROTONIX) PO SCH (09:07)
[2020-11-16] MEDS: DOCUSATE SODIUM 100MG CAPSULE PO SCH (09:07)
[2020-11-16] MEDS: BISOPROLOL FUM 2.5 MG PER 1/2TAB PO SCH (09:11)
--- NOTE | 2020-11-16 10:43 | DS.PDOC ---
Discharge Summary General Date of Admission Nov 13, 2020 at 23:54 Date of Discharge 11/16/20 Discharge Summary PROCEDURES PERFORMED DURING STAY: [None]. DISCHARGE DIAGNOSES: Mechanical fall Gait instability Possible vasovagal syncope Hypertensive urgency due to medication non compliance. SECONDARY DIAGNOSIS: Hypertension, Hyperlipidemia, Paroxysmal atrial fibrillation on Xarelto, Morbid Obesity with BMI of 49.5, obesity hypoventilation syndrome, AZALIA refuses to use CPAP, Hemorrhagic CVA 2010, urinary incontinence, depression, GERD COMPLICATIONS/CHIEF COMPLAINT: Hypertensive Urgency, Syncope. HOSPITAL COURSE: 70-year-old female with PMH of Hypertension, morbid Obesity with BMI of 49.5, Hyperlipidemia, Paroxysmal atrial fibrillation on Xarelto, obesity hypoventilation syndrome, AZALIA refuses to use CPAP, Hemorrhagic CVA 2010, urinary incontinence presents to emergency department after 911 was called because she was found on the floor by her neighbor. This was most likely is a mechanical fall as per patient's description however she is uncertain if she passed out or not. She was found to have hypertensive urgency in ED. She was admitted for Syncope and hypertensive urgency. Hypertensive urgency: Due to medication noncompliance. Continue home medications. Possible syncope Likely vasovagal Telemetry no cardiac arrhythmias to explain syncopal episode, carotid Doppler less than 50% occlusion Orthostats negative. Fall at home This was likely a mechanical fall as per patient's description how it happened when she was trying to get out of bed and slipped down the mattress. A. fib: Rate controlled. Continue bisoprolol. Continue anticoagulation was Xarelto. Dose of metoprolol lowered as bradycardic to 40s when asleep Hypertension: Continue amlodipine, bisoprolol, losartan and chlorthalidone. Hyperlipidemia: Continue atorvastatin hx CVA: Continue Xarelto and atorvastatin. Depression: Continue citalopram Urinary incontinence: Continue oxybutynin GERD: Continue pantoprazole Morbid obesity/AZALIA Untreated. Refused CPAP before Complicating longterm oxygen Patient reports that she has a small tank with the wire which she sometimes uses if she is short of breath. DISCHARGE MEDICATIONS: Please see below. ALLERGIES: Please see below. PHYSICAL EXAMINATION ON DISCHARGE: VITAL SIGNS: Please see below. General Exam: Positive: Alert, Cooperative, No Acute Distress Eye Exam: Positive: PERRLA, Conjunctiva & lids normal, EOMI; Negative: Sclera icteric ENT Exam: Positive: Atraumatic, Mucous membr. moist/pink, Pharynx Normal Neck Exam: Positive: Supple, JVD; Negative: thyromegaly Chest Exam: Positive: Wheezing, Diminished Heart Exam: Positive: Rate Normal, Regular Rhythm, Normal S1, Normal S2; Negative: Murmurs, Rubs Abdomen Exam: Positive: Normal bowel sounds, Soft, Other (obese); Negative: Tenderness Extremity Exam: Positive: Edema; Negative: Clubbing, Cyanosis LABORATORY DATA: Please see below. IMAGING: Carotid US: Right: CCA systolic: 59.4 centimeters/second CCA diastolic: 7.2 centimeters/second ICA systolic: 33.6 centimeters/second ICA diastolic: 10 centimeters/second ICA CCA ratio: 0.57 Left: CCA systolic: 70.9 centimeters/second CCA diastolic: 5.2 centimeters/second ICA systolic: 41.0 centimeters/second ICA diastolic: 14.3 centimeters/second ICA CCA ratio: 0.58 Vertebral artery: Right: Antegrade flow left: Antegrade flow A minimal amount of barely perceptible plaque is seen but some of which casts a slight acoustic shadow. IMPRESSION: According to the SRU criteria there is less than 50% stenosis of the internal carotid artery bilaterally. CT Head FINDINGS: Brain: There is no acute cortical infarction, intracranial hemorrhage or mass. Cerebral ventricles: No significant ventriculomegaly. Paranasal sinuses: Both maxillary antra are opacified and hypoplastic.The remainder of the paranasal sinuses appear clear. Mastoid air cells: The middle ear cavities and mastoid air cells are clear. Vasculature: Atherosclerosis. Bones/joints: Unremarkable. No acute fracture. Soft tissues: Unremarkable. IMPRESSION: No acute cerebral infarction or intracranial hemorrhage. ECHO: MEASUREMENTS: 2D Measurements: RV - 3.2 cm LV - 4.4 cm Septum 1.1 cm Posterior wall 1.1 cm Aortic root 2.9 cm LA - 3.4 cm LVEF 65% Doppler Measurements: AV - 1.0 m/sec LVOT - 0.9 m/sec LVOT diameter 1.9 cm MV-E 51, A 53, EA ratio 1 Early mitral deceleration time 218 msec E prime medial 6 A prime medial 8.4 E prime lateral 5 PV - 0.85 m/sec Pulmonary artery acceleration time 131 msec PASP 22 mmHg IVC - could not be visualized. COMMENTS: Sinus bradycardia without intraventricular conduction disturbance. Extremely difficult study in light of the patient's body habitus. The above measurements are suspect. We attempted to perform M-mode and 2-dimensional echocardiography with pulse, continuous wave, color flow and tissue Doppler studies. Left ventricular size, wall thickness and wall motion appear to be normal. Left atrial size was upper limits of normal with grade 1 left ventricular (LV) diastolic dysfunction, but currently normal estimated mean left atrial pressure. Normal right heart chamber sizes and motion and Doppler sign of pulmonary arterial pressure. Her inferior vena cava (IVC) could not be visualized to estimate central venous pressure. Normal aortic dimensions. Technical difficulty defining lobular structures precisely, but these did not appear significantly abnormal. There was no Doppler evidence of significant aortic stenosis or insufficiency or mitral stenosis or insufficiency. We could not perform Doppler interrogation of her tricuspid valve to further estimate her right ventricular systolic pressure. We obviously could not rule out any intracardiac mass, but there was no obvious abnormality. ACTIVITY: [As tolerated]. DIET: Regular DISCHARGE PLAN: Home with services DISCHARGE INSTRUCTIONS: PMD in 1 week DISCHARGE CONDITION: [Stable]. TIME SPENT ON DISCHARGE: 35 minutes. Vital Signs/I&Os Vital Signs Date Time Temp Pulse Resp B/P (MAP) Pulse Ox O2 Delivery O2 Flow Rate FiO2 11/16/20 10:16 158/74 (102) 11/16/20 09:07 62 11/16/20 08:00 97.6 20 96 Nasal Cannula 3.0 I&O- Last 24 Hours up to 6 AM0 11/16/20 06:00 Intake Total 1680 ml Output Total 1400 ml Balance 280 ml Laboratory Data Labs 24H Laboratory Tests 2 11/16/20 03:50: Immature Granulocyte % (Auto) 0.9, Neutrophils (%) (Auto) 64.1, Lymphocytes (%) (Auto) 23.6L, Monocytes (%) (Auto) 7.1, Eosinophils (%) (Auto) 3.8H, Basophils (%) (Auto) 0.5, Neutrophils # (Auto) 6.0, Lymphocytes # (Auto) 2.2, Monocytes # (Auto) 0.7, Eosinophils # (Auto) 0.4, Basophils # (Auto) 0.1, Nucleated Red Blood Cells % (auto) 0.0, Anion Gap 6L, Glomerular Filtration Rate 47.0, Calcium Level 8.9 CBC/BMP Laboratory Tests 11/16/20 03:50 Discharge Medications Scheduled Amlodipine Besylate (Amlodipine Besylate) 10 Mg Tablet, 10 MG PO DAILY, (Reported) Atorvastatin Calcium (Atorvastatin Calcium) 40 Mg Tab, 40 MG PO DAILY, (Reported) Bisoprolol Fumarate (Bisoprolol Fumarate) 5 Mg Tablet, 5 MG PO DAILY, (Reported) Calcitriol (Rocaltrol) 0.25 Mcg Capsule, 0.25 MCG PO QWEEK, (Reported) SUNDAYS Chlorthalidone (Chlorthalidone) 25 Mg Tablet, 12.5 MG PO DAILY, (Reported) Cholecalciferol (Vitamin D3) (Vitamin D3) 25 Mcg Capsule, 25 MCG PO DAILY, (Repo rted) Citalopram Hydrobromide (Citalopram HBr) 20 Mg Tablet, 20 MG PO DAILY, (Reported) Loratadine (Loratadine) 10 Mg Tablet, 10 MG PO DAILY, (Reported) Losartan Potassium (Losartan Potassium) 25 Mg Tablet, 25 MG PO DAILY, (Reported) Oxybutynin Chloride (Oxybutynin Chloride ER) 15 Mg Tab.er.24, 15 MG PO DAILY, (Reported) Pantoprazole Sodium (Pantoprazole Sodium) 40 Mg Tab, 40 MG PO DAILY, (Reported) Rivaroxaban (Xarelto) 15 Mg Tablet, 15 MG PO DAILY, (Reported) Allergies Coded Allergies: codeine (Verified Allergy, Intermediate, HIVES, 07/30/18) ENVIRONMENTAL (Unverified Allergy, Unknown, 06/04/09) LESLIE GENAO MD Nov 16, 2020 10:43
[2020-11-18] MEDS ORDERED: CALCITRIOL 0.25 MCG CAP (S0169) PO SCH (09:00)
== END 2020-11-16 17:33 | disposition home health service (06) | DRG 305 ==
LOC: EDBD 18:40 → M ED 18:40 → M ED INP 23:54 → ENRESERVDT 11-14 00:27 → ENRESERVTM 11-14 00:27 → M PCU 11-14 01:33
PROVIDERS: ADMIT Family Medicine; ATTEND Internal Medicine Nephrology
DX: I16.0 Hypertensive urgency (principal); E66.2 Morbid (severe) obesity with alveolar hypoventilation; Z68.42 Body mass index [BMI] 45.0-49.9, adult; R55 Syncope and collapse; I10 Essential (primary) hypertension; E78.5 Hyperlipidemia, unspecified; J30.9 Allergic rhinitis, unspecified; R26.89 Other abnormalities of gait and mobility; I48.0 Paroxysmal atrial fibrillation; K21.9 Gastro-esophageal reflux disease without esophagitis; F32.9 Major depressive disorder, single episode, unspecified; Z66 Do not resuscitate; Z88.5 Allergy status to narcotic agent; Z98.49 Cataract extraction status, unspecified eye; Z86.73 Personal history of transient ischemic attack (TIA), and cerebral infarction without residual deficits; Z91.14 Patient's other noncompliance with medication regimen; R32 Unspecified urinary incontinence; Z79.01 Long term (current) use of anticoagulants; Z79.899 Other long term (current) drug therapy

== ENCOUNTER 2021-03-11 11:53 | Inpatient (IN) | payer OTHER ==
[~2021-03-11] VITALS: Ht 154.9 cm; Wt 119.6 kg
[~2021-03-11 11:53] MED LIST changes: +AMLO1TAB25 PO; +CHLO125TA PO; +D-101000 PO; +LORA-622 PO; +LOSA25TA14 PO; +OXYB15TA14 PO; +ROCA0.25 PO; +XARE15TA PO
[2021-03-11] MEDS ORDERED: LOSARTAN 25 MG TAB PO ONE (12:35)
[2021-03-11] MEDS ORDERED: bisoproloL fumarate 5 MG TAB PO ONE (12:35)
--- NOTE | 2021-03-11 13:20 | REP ---
INDICATION: trauma Nontraumatic hip pain. COMPARISON: None. TECHNIQUE: Frontal view of the pelvis with neutral and frog lateral views of the left hip. FINDINGS: Age-related changes to the pelvis with moderate symmetric arthritic changes to the bilateral hips noted. No evidence for acute fracture or dislocation. IMPRESSION: Degenerative changes. No acute fracture or dislocation. <Electronically signed by Kamaljit Andrade > 03/11/21 [id number]
--- NOTE | 2021-03-11 14:15 | REP ---
INDICATION: HTN. COMPARISON: 11/13/2020 also portable TECHNIQUE: Portable FINDINGS: The technique utilized in obtaining the radiograph has magnified the cardiac silhouette and accentuated the interstitial markings. There is cardiomegaly accentuated by technique status quo. There is no change in lung ayala. No acute patchy parenchymal opacities or pleural effusions have developed. The osseous structures are stable. IMPRESSION: Cardiomegaly accentuated by technique and without evidence of acute cardiopulmonary disease. No significant change compared to the prior exam. <Electronically signed by David Akins > 03/11/21 0270
[2021-03-11 14:38] LABS: HEMATOCRIT 44.5 % (36.0-47.0); HEMOGLOBIN 14.1 g/dl (12.0-15.5); MEAN CORPUSCULAR HEMOGLOBIN 27.3 pg (27.0-33.0); MEAN CORPUSCULAR HGB CONC 31.7 g/dl (32.0-36.5); MEAN CORPUSCULAR VOLUME 86.1 fl (80.0-96.0); PLATELET COUNT, AUTOMATED 339 10^3/uL (150-450); RED BLOOD COUNT 5.17 10^6/uL (4.00-5.40); WHITE BLOOD COUNT 12.2 10^3/uL (4.0-10.0)
[2021-03-11 15:42] LABS: RSV AMPLIFICATION NEGATIVE (NEGATIVE)
--- OUTSIDE RECORDS SUMMARY | 2021-03-11 15:46 | CCD ---
Author Author [facility] Organization [facility] Address Unknown Phone Unavailable Care Team Providers Care Practice Billing Associate Name Role Phone Emely Novak Unavailable PROBLEMS Type Condition ICD9-CM Code [id number] Code Onset Dates Condition S tatus W/U Status Risk SNOMED Code Notes Problem Other sequelae following unspecified cerebrovascular d isease I69.998 Active confirmed 186319343 Problem Essential (primary) hypertension I10 Active conf irmed 33857960 Problem Nontraumatic intracerebral hemorrhage, unspecified I61.9 Active confirmed [id number] Problem Obstructive sleep apnea (adult) (pediatric) G47.33 Active confirmed 44974763 Problem Sleep related hypoventilation in conditions clas sified elsewhere G47.36 Active confirmed 068578906 Problem Obesity, morbid, BMI 40.0-49.9 E66.01 Active confir med 064934486 Problem Reflux esophagitis K21.0 Active confirmed 2 87934752 Problem Vitamin D deficiency E55.9 Active confirmed 43527603 Problem Leukocytosis, unspecified type D72.829 Active confi rmed 189375740 Problem Mixed hyperlipidemia E78.2 Active confirmed 255736262 Problem Meningioma D32.9 Active confirmed 706926713 Problem Major depressive disorder, single episode, unspecified F32.9 Active confirmed 83397185 Problem Urge incontinence N39.41 Active confirmed 87 533750 Problem Chronic rhinitis J31.0 Active confirmed 860 28267 Problem Paroxysmal atrial fibrillation I48.0 Active confir med 459246609 Problem Chronic hypoxemic respiratory failure J96.11 Ac tive confirmed 108599839 ALLERGIES Allergen (clinical drug ingredient) Drug/Non Drug Allergy do cumented on EMR Reaction Allergy Type Onset Date Status Aspirin aspirin hemorrhoidal bleeding Non Drug Allergy Active Codiene Hives Non Drug Allergy Active Biaxin ( meds that end in Axin) - per patient Rash N on Drug Allergy Active ENCOUNTERS from 1950 to 2020-12-12 Encounter Location Date Provider Diagnosis [facility] Carrie [address] [facility] [phone] [place] [address] Nov, Emely Novak IMMUNIZATIONS Vaccine Route Administration Date Status Influenza 6-35 months Unknown Feb 11, 2017 Refused Influenza (High Dose 65 & up) Unknown Feb 12, 2016 Re fused Influenza (High Dose 65 & up) IM Intramuscular May 12, 2014 A dministered Pneumococcal Adult 0.5mL Pneumovax 23 IM Intramuscular June 27, 2015 Administered Pneumococcal 0.5mL Prevnar 13 IM Intramuscular May 12, 2014 A dministered SOCIAL HISTORY Tobacco Use: Social History Observation Description Date Details (start date - stop date) Never Smoker Sex Assigned At : Social History Observation Description Sex Assigned At Unknown Education: Question Answer Notes Level of Education: Finished High School Audit Question Answer Notes Total Score: 0 Interpretation: Alcohol Education Language: Question Answer Notes Languages spoken: Montserratian Synagogue: Question Answer Notes Synagogue 13 Roman Catholic Sexual Hx: Question Answer Notes Had sex in the last 12 months (vaginal, oral, or anal)? No LMP: years ago Have you ever had an STD? No Drug and Alcohol Question Answer Notes Total Score: 0 Interpretation: No problems reported Alcohol Screening: Question Answer Notes Did you have a drink containing alcohol in the past year? No Points 0 Interpretation Negative BMI Care Goal Follow-Up Question Answer Notes Above Normal BMI Follow-Up Giving encouragement to exercise Tobacco Use: Question Answer Notes Are you a: never smoker REASON FOR REFERRAL No Information VITAL SIGNS No information MEDICATIONS Medication SIG (Take, Route, Frequency, Duration) Notes Start Da te End Date Status Vitamin D3 1.25 MG (14613 UT) 1 capsule Orally weekly Not-Taking Bisoprolol Fumarate 5 MG 1 tablet Orally Once a day Active Amlodipine Besylate 10 MG TAKE ONE TABLET BY MOUTH EVERY DAY for 90 Active Xarelto 15 MG TAKE ONE TABLET BY MOUTH IRAJ DAY WITH FOOD Orally Once a day for 90 days Mar, Active Atorvastatin Calcium 40 MG 1 tablet Orally Once a day for 90 days Active Oxygen 2 liters per minute as directed Oxygen device C ontinuous and portable with conserving device Dx L maintain levels >% For O2 below 29 Feb, 2018 Active Claritin 10 MG 1 tablet Orally Once a day for 90 days Active Fluticasone Propionate 50 MCG/ACT 1 spray in each nost ril Nasally Once a day for 30 day(s) Jun, Active Oxybutynin Chloride ER 15 MG 1 tablet Orally Once a day for 30 day(s) Active Citalopram Hydrobromide 20 mg 1 tablet Orally Once a day for 90 Active Pantoprazole Sodium 40 MG 1 tablet Orally Once a day for 30 days Active Chlorthalidone 25 MG 1/2 tablet in the morning with food Orally Onc e a day Active Vitamin D-3 25 MCG (1000 UT) 1 capsule Orally Once a day for 30 day(s ) Active Losartan Potassium 25 MG 1 tablet Orally Once a day for 30 days Active PROCEDURES No Information RESULTS No Results REASON FOR VISIT Amlodipine Besylate 10 MG Tablet MEDICAL (GENERAL) HISTORY Type Description Date Medical History DDD l/s spine Medical History osteoarthritis Medical History hypertension Medical History Esophageal reflux Medical History seasonal allergies Medical History hemorrhoids Medical History Sleep disturbance Medical History Obesity Medical History Hemorrhagic CVA September 2010 wi th L eye vision change and L sided weakness Medical History hyperlipidemia Medical History Vit D deficiency Medical History Paroxysmal atrial fibrillati on; admitted for afib with RVR in 04/2017; Follows [facility] Medical History AZALIA refuses CPAP; obesity hypoventilatio n Medical History 05/08:Regadenoson Stress Test : Normal left ventricular size with hyperkinetic wall motion. 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 Fairbanks Medical History 6 mm meningioma - following with Neuro Medical History CKD3 - Dr. Victoria Medical History slow growing tumor in brain Surgical History hysterectomy/BSO for cysts 1994 Surgical History EGD 08/2002 Surgical History Colonoscopy - normal 08/2002, 2013 Surgical History Hemorrhoid surgery 1996 Surgical History Left Cataract- Dr. Fairbanks 01/2019 Hospitalization History surgery related Hospitalization History Paroxysmal atrial fib, morbid obesit y, HTN 04/29/17-04/30/17 Hospitalization History falls and HTN 11/2020 Goals Section No Information Health Concerns No Information MEDICAL EQUIPMENT No Information MENTAL STATUS No Information FUNCTIONAL STATUS No Information ASSESSMENTS No Information PLAN OF TREATMENT Medication Medication Name Sig Start Date Stop Date Atorvastatin Calcium 40 MG 1 tablet Orally Once a day for 90 day s Chlorthalidone 25 MG 1/2 tablet in the morning with food Orally Once a day Bisoprolol Fumarate 5 MG 1 tablet Orally Once a day Amlodipine Besylate 10 MG TAKE ONE TABLET BY MOUTH EVERY DAY for 90 Fluticasone Propionate 50 MCG/ACT 1 spray in each nost ril Nasally Once a day for 30 day(s) Jun, Next Appt Details Provider Name:Mirna Jane Francois, 9 02:00:00 PM, [address] [facility], , [place], [address], Provider Name:Emely Novak, 2021 10:30:00 AM, [address] [facility] [facility], , [place], [address], Insurance Providers Payer Name Payer Address Payer Phone Insured Name Patient Relati onship to Insured Coverage Start Date Coverage End Date NANCY CASTRO [address] [address] [facility] [phone] ЕЛЕНА LOPEZ
--- OUTSIDE RECORDS SUMMARY | 2021-03-11 15:46 | CCD ---
Author Author [facility] Organization [facility] Address Unknown Phone Unavailable Care Team Providers Care Energy Engineer Name Role Phone Emely Novak Unavailable PROBLEMS Type Condition ICD9-CM Code [id number] Code Onset Dates Condition S tatus W/U Status Risk SNOMED Code Notes Problem Other sequelae following unspecified cerebrovascular d isease I69.998 Active confirmed 580965353 Problem Essential (primary) hypertension I10 Active conf irmed 14321602 Problem Nontraumatic intracerebral hemorrhage, unspecified I61.9 Active confirmed [id number] Problem Obstructive sleep apnea (adult) (pediatric) G47.33 Active confirmed 01686439 Problem Sleep related hypoventilation in conditions clas sified elsewhere G47.36 Active confirmed 862783745 Problem Obesity, morbid, BMI 40.0-49.9 E66.01 Active confir med 784975889 Problem Reflux esophagitis K21.0 Active confirmed 2 56286948 Problem Vitamin D deficiency E55.9 Active confirmed 82525959 Problem Leukocytosis, unspecified type D72.829 Active confi rmed 063448463 Problem Mixed hyperlipidemia E78.2 Active confirmed 718910188 Problem Meningioma D32.9 Active confirmed 601450347 Problem Major depressive disorder, single episode, unspecified F32.9 Active confirmed 87223603 Problem Urge incontinence N39.41 Active confirmed 87 702814 Problem Chronic rhinitis J31.0 Active confirmed 860 89950 Problem Paroxysmal atrial fibrillation I48.0 Active confir med 015559162 Problem Chronic hypoxemic respiratory failure J96.11 Ac tive confirmed 165939536 ALLERGIES Allergen (clinical drug ingredient) Drug/Non Drug Allergy do cumented on EMR Reaction Allergy Type Onset Date Status codeine Codeine Hives Drug Allergy Active Biaxin ( meds that end in Axin) - per patient Rash N on Drug Allergy Active aspirin Aspirin([facility] Code:[address]-00) hemorrhoidal bleeding Drug Allergy Active ENCOUNTERS from 1950 to 2021 Encounter Location Date Provider Diagnosis [place] [id number] [facility] [phone] [place] [address] Jan, Emely Novak IMMUNIZATIONS Vaccine Route Administration Date [...] Education Language: Question Answer Notes Languages spoken: Thai Mormon: Question Answer Notes [employer] 13 Pentec[employer]al Sexual Hx: Question Answer Notes Had sex [...] End Date Status Vitamin D3 1.25 MG (80082 UT) 1 capsule Orally weekly Not-Taking Bisoprolol [...] Information RESULTS No Results REASON FOR VISIT N/s informational letter MEDICAL (GENERAL) HISTORY Type Description Date Medical [...] normal 08/2002, 2013 Surgical History Hemorrhoid surgery 1995 Surgical History Left Cataract- Dr. Fairbanks 01/2019 [...] Once a day for 30 day(s) Jun, Insurance Providers Payer Name Payer Address Payer Phone Insured Name Patient Relati onship to Insured Coverage Start Date Coverage End Date [facility] [address] [address] [facility] [id number] ЕЛЕНА LOPEZ
--- OUTSIDE RECORDS SUMMARY | 2021-03-11 15:46 | CCD ---
Author Author [facility] Organization [facility] Address Unknown Phone Unavailable Care Team Providers Care Java Android Developer Name Role Phone Tyrel Meyers MD Unavailable Unavailable Tyrel Meyers MD Unavailable Unavailable Tyrel Meyers MD Unavailable Unavailable Tyrel Meyers MD Unavailable Unavailable Tyrel Meyers MD Unavailable Unavailable Tyrel Meyers MD Unavailable Unavailable Tyrel Meyers MD Unavailable Unavailable Tyrel Meyers MD Unavailable Unavailable Tyrel Meyers MD Unavailable Unavailable Tyrel Meyers MD Unavailable Unavailable Tyrel Meyers MD Unavailable Unavailable Tyrel Meyers MD Unavailable Unavailable Tyrel Meyers MD Unavailable Unavailable Tyrel Meyers MD Unavailable Unavailable Tyrel Meyers MD Unavailable Unavailable Tyrle Meyers MD Unavailable Unavailable Tyrel Meyers MD Unavailable Unavailable Tyrel Meyers MD Unavailable Unavailable Tyrel Meyers MD Unavailable Unavailable Tyrel Meyers MD Unavailable Unavailable Tyrel Meyers MD Unavailable Unavailable Tyrel Meyers MD Unavailable Unavailable Tyrel Meyers MD Unavailable Unavailable Tyrel Meyers MD Unavailable Unavailable Tyrel Meyers MD Unavailable Unavailable Tyrel Meyers MD Unavailable Unavailable Tyrel Meyers MD Unavailable Unavailable Tyrel Meyers MD Unavailable Unavailable Tyrel Meyers MD Unavailable Unavailable Tyrel Meyers MD Unavailable Unavailable Tyrel Meyers MD Unavailable Unavailable Tyrel Meyers MD Unavailable Unavailable Tyrel Meyers MD Unavailable Unavailable Tyrel Meyers MD Unavailable Unavailable Tyrel Meyers MD Unavailable Unavailable Tyrel Meyers MD Unavailable Unavailable Tyrel Meyers MD Unavailable Unavailable Tyrel Meyers MD Unavailable Unavailable Tyrel Meyers MD Unavailable Unavailable Tyrel Meyers MD Unavailable Unavailable Tyrel Meyers MD Unavailable Unavailable Tyrel Meyers MD Unavailable Unavailable Tyrel Meyers MD Unavailable Unavailable Tyrel Meyers MD Unavailable Unavailable Tyrel Meyers MD Unavailable Unavailable Tyrel Meyers MD Unavailable Unavailable Tyrel Meyers MD Unavailable Unavailable Tyrel Meyers MD Unavailable Unavailable Tyrel Meyers MD Unavailable Unavailable Tyrel Meyers MD Unavailable Unavailable Tyrel Meyers MD Unavailable Unavailable Tyrel Meyers MD Unavailable Unavailable Tyrel Meyers MD Unavailable Unavailable Mira, O Samah MD Unavailable Unavailable Mira, O Samah MD Unavailable Unavailable Mira, O Samah MD Unavailable Unavailable Mira, O Samah MD Unavailable Unavailable Mira, O Samah MD Unavailable Unavailable Mira, O Samah MD Unavailable Unavailable Mira, O Samah MD Unavailable Unavailable Mira, O Samah MD Unavailable Unavailable Mira, O Samah MD Unavailable Unavailable Mira, O Samah MD Unavailable Unavailable Mira, O Samah MD Unavailable Unavailable Mira, O Samah MD Unavailable Unavailable Mira, O Samah MD Unavailable Unavailable Mira, O Samah MD Unavailable Unavailable Mira, O Samah MD Unavailable Unavailable Mira, O Samah MD Unavailable Unavailable Mira, O Samah MD Unavailable Unavailable Mira, O Samah MD Unavailable Unavailable Mira, O Samah MD Unavailable Unavailable Mira, O Samah MD Unavailable Unavailable Mira, O Samah MD Unavailable Unavailable Mira, O Samah MD Unavailable Unavailable Mira, O Samah MD Unavailable Unavailable Mira, O Samah MD Unavailable Unavailable Mira, O Samah MD Unavailable Unavailable Mira, O Samah MD Unavailable Unavailable Re-disclosure Warning The records that you are about to access may contain information from federally-assisted alcohol or drug abuse programs. If such information is present, then the following federally mandated warning applies: This information has been disclosed to you from records protected by federal confidentiality rules (42 CFR part 2). The federal rules prohibit you from making any further disclosure of this information unless further disclosure is expressly permitted by the written consent of the person to whom it pertains or as otherwise permitted by 42 CFR part 2. A general authorization for the release of medical or other information is NOT sufficient for this purpose. The Federal rules restrict any use of the information to criminally investigate or prosecute any alcohol or drug abuse patient.The records that you are about to access may contain highly sensitive health information, the redisclosure of which is protected by Article 27-F of the [facility] Public Health law. If you continue you may have access to information: Regarding HIV / AIDS; Provided by facilities licensed or operated by the [facility] Office of Mental Health; or Provided by the [facility] Office for People With Developmental Disabilities. If such information is present, then the following [facility] mandated warning applies: This information has been disclosed to you from confidential records which are protected by state law. State law prohibits you from making any further disclosure of this information without the specific written consent of the person to whom it pertains, or as otherwise permitted by law. Any unauthorized further disclosure in violation of state law may result in a fine or detention sentence or both. A general authorization for the release of medical or other information is NOT sufficient authorization for further disc losure. Family History Family Member Name Family Member Gender Family Member Status Date o f Status Description Data Source(s) Unknown Unknown Problem [facility] ) Unknown Female Problem [facility] ([facility] Unknown Male Problem [facility] ([facility]) at age 76 Encounters Encounter Providers Location Date Indications Data Source(s ) Unknown [address] [facility] [id number] 2021 12:00:00 AM EDT [facility]1 ([facility]) Unknown [address] [facility] [place] [address] 12/25/2020 12:00:00 AM EDT [facility]CW1 ([facility]) Unknown [address] [facility] [address] 12/18/2020 12:00:00 AM EDT [facility]CW1 ([facility]) Unknown [address] [facility] [address] 12/12/2020 12:00:00 AM EDT eCW1 ([facility]) Unknown [address] [facility] [address] 12/12/2020 12:00:00 AM EDT [facility]CW1 ([facility]) Outpatient [address] [facility] Y [address] 11/26/2020 12:00:00 AM EDT eCW1 ([facility]) Unknown [address] [facility] [address] 10/31/2020 12:00:00 AM EDT [facility]CW1 ([facility]) [place] [address] [facility] [place] [address] 10/23/2020 12:00:00 AM EDT eCW1 ([facility]) Unknown [address] [facility] [place] [address] 09/04/2020 12:00:00 AM EDT eCW1 ([facility]) Unknown [address] [facility] [place] [address] 08/17/2020 12:00:00 AM EDT eCW1 ([facility]) Unknown [address] [facility] [place] [address] 07/27/2020 12:00:00 AM EDT eCW1 ([facility]) Office Visit Attender: Jg Meyers MD Main office - [facility] 07/24/2020 10:30:00 AM EDT [facility] ([facility] ) [place] [address] [facility] [place] [address] 07/03/2020 12:00:00 AM EDT eCW1 ([facility]) Unknown [address] [facility] [place] [address] 07/03/2020 12:00:00 AM EDT eCW1 ([facility]) Outpatient [address] [facility] [address] 06/26/2020 12:00:00 AM EST eCW1 ([facility]) Unknown [address] [facility] [place] [address] 06/11/2020 12:00:00 AM EST eCW1 ([facility]) Unknown [address] [facility] [place] [address] 04/26/2020 12:00:00 AM EST eCW1 ([facility]) Outpatient [address] [facility] [place] [address] 03/26/2020 12:00:00 AM EST eCW1 ([facility]) Unknown [address] [facility] [place] [address] 03/05/2020 12:00:00 AM EST eCW1 ([facility] to [facility]) Unknown [address] [facility] [place] [address] 02/17/2020 12:00:00 AM EDT eCW1 ([facility] to [facility]) Unknown [address] [facility] [place] [address] 01/30/2020 12:00:00 AM EDT eCW1 ([facility] to [facility]) Unknown [address] [facility] [place] [address] 01/23/2020 12:00:00 AM EDT eCW1 (Pending sale to [facility]) Medications Medication Brand Name Start Date Product Form Dose Route Admi nistrative Instructions Pharmacy Instructions Status Indications Reaction Description Data Source(s) 10 mg 12/12/2020 12:00:00 AM EDT tablet 90 TAKE ONE TABLET BY MOUTH EVERY DAY TAKE ONE TABLET BY MOUTH EVERY DAY SOLD: 12/12/2020 [facility] atorvastatin 40 MG Oral Tablet ATORVASTATIN CALCIUM 12/12/2020 1 2:00:00 AM EDT tablet 90 TAKE ONE TABLET BY MOUTH EVERY D AY TAKE ONE TABLET BY MOUTH EVERY DAY SOLD: 12/12/2020 [facility] Fluticasone propionate 0.05 MG/ACTUAT Metered Dose Timbo al Lolita 50 mcg/actuation FLUTICASONE PROPIONATE 11/26/2020 12:00:00 AM EDT spray,suspension 16 SPRAY ONE SPRAY IN EACH NOSTRIL EVERY DAY SPRAY ONE SPRAY IN EACH NOSTRIL EVERY DAY SOLD: 11/26/2020 [facility] 5 mg 11/19/2020 12:00:00 AM EDT tablet 90 TAKE ONE TABLET BY MOUTH EVERY DAY TAKE ONE TABLET BY MOUTH EVERY DAY SOLD: 11/19/2020 [facility] 15 mg 11/01/2020 12:00:00 AM EDT tablet extended release 24hr 30 TAKE ONE TABLET BY MOUTH EVERY DAY TAKE ONE TABLET BY MOUTH EVERY DAY SOLD: 11/04/2020 [facility] pantoprazole 40 MG Delayed Release Oral Tablet PANTOPRAZOLE SODIUM 10/23/2020 12:00:00 AM EDT tablet,delayed release (DR/EC) 30 T LAZARO ONE TABLET BY MOUTH EVERY DAY TAKE ONE TABLET BY MOUTH EVERY DAY SOLD: 10/23/2020 [facility] 25 mcg (1,000 unit) 09/04/2020 12:00:00 AM EDT tablet 90 TAKE ONE TABLET BY MOUTH EVERY DAY TAKE ONE TABLET BY MOUTH EVERY DAY SOLD: 09/04/2020 [facility] 25 mg 09/04/2020 12:00:00 AM EDT tablet 30 TAKE ONE TABLET BY MOUTH EVERY DAY TAKE ONE TABLET BY MOUTH EVERY DAY SOLD: 09/04/2020 [facility] 25 mg 09/04/2020 12:00:00 AM EDT tablet 30 TAKE ONE TABLET BY MOUTH EVERY DAY TAKE ONE TABLET BY MOUTH EVERY DAY SOLD: 11/30/2020 [facility] Calcitriol 0.63926 MG Oral Capsule 0.25 mcg CALCITRIOL 08/29/2020 12:00:00 AM EDT capsule 13 TAKE ONE CAPSULE BY MOUTH ON SUNDAYS TAKE ONE CAPSULE BY MOUTH ON SUNDAYS SOLD: 08/29/2020 [facility] 25 mg 08/18/2020 12:00:00 AM EDT tablet 45 TAKE ONE-HALF TABLET BY MOUTH EVERY DAY IN THE MORNING WITH FOOD TAKE ONE-HALF TABLET BY MOUTH EVERY DAY IN THE MORNING WITH FOOD SOLD: 08/19/2020 [facility] 15 mg 07/27/2020 12:00:00 AM EDT tablet 90 TAKE ONE TABLET BY MOUTH EVERY DAY WITH FOOD TAKE ONE TABLET BY MOUTH EVERY DAY WITH FOOD SOLD: 07/27/2020 [facility] atorvastatin 40 MG Oral Tablet ATORVASTATIN CALCIUM 07/04/2020 1 2:00:00 AM EDT tablet 90 TAKE ONE TABLET BY MOUTH EVERY D AY TAKE ONE TABLET BY MOUTH EVERY DAY SOLD: 07/04/2020 [facility] Citalopram 20 MG Oral Tablet CITALOPRAM HYDROBROMIDE 05/18/2020 12:00:00 AM EST tablet 90 TAKE ONE TABLET BY MOUTH EVERY D AY TAKE ONE TABLET BY MOUTH EVERY DAY SOLD: 05/18/2020 [facility] 10 mg 04/26/2020 12:00:00 AM EST tablet 90 TAKE ONE TABLET BY MOUTH EVERY DAY TAKE ONE TABLET BY MOUTH EVERY DAY SOLD: 04/26/2020 [facility] 25 mcg (1,000 unit) 03/23/2020 12:00:00 AM EST tablet 90 TAKE ONE TABLET BY MOUTH EVERY DAY TAKE ONE TABLET BY MOUTH EVERY DAY SOLD: 03/23/2020 [facility] 25 mg 03/20/2020 12:00:00 AM EST tablet 90 TAKE ONE TABLET BY MOUTH EVERY DAY TAKE ONE TABLET BY MOUTH EVERY DAY SOLD: 03/20/2020 [facility] 1,250 mcg (50,000 unit) 02/24/2020 12:00:00 AM EST capsule 8 TAKE 1 CAPSULE BY MOUTH ONCE A WEEK TAKE 1 CAPSULE BY MOUTH ONCE A WEEK SOLD: 02/24/2020 [facility] atorvastatin 40 MG Oral Tablet ATORVASTATIN CALCIUM 01/25/2020 1 2:00:00 AM EDT tablet 90 TAKE 1 TABLET BY MOUTH ONCE DAILY TAKE 1 TABLET BY MOUTH ONCE DAILY SOLD: 01/25/2020 [facility] 10 mg 12/28/2019 12:00:00 AM EDT tablet 90 TAKE ONE TABLET BY MOUTH EVERY DAY TAKE ONE TABLET BY MOUTH EVERY DAY SOLD: 05/26/2020 [facility] pantoprazole 40 MG Delayed Release Oral Tablet PANTOPRAZOLE SODIUM 11/29/2019 12:00:00 AM EDT tablet,delayed release (DR/EC) 90 T LAZARO ONE TABLET BY MOUTH EVERY DAY TAKE ONE TABLET BY MOUTH EVERY DAY SOLD: 04/23/2020 [facility] 5 mg 11/28/2019 12:00:00 AM EDT tablet 90 TAKE ONE TABLET BY MOUTH EVERY DAY TAKE ONE TABLET BY MOUTH EVERY DAY SOLD: 04/29/2020 [facility] 15 mg 11/09/2019 12:00:00 AM EDT tablet extended release 24hr 30 TAKE ONE TABLET BY MOUTH EVERY DAY TAKE ONE TABLET BY MOUTH EVERY DAY SOLD: 02/24/2020 [facility] 15 mg 11/09/2019 12:00:00 AM EDT tablet extended release 24hr 30 TAKE ONE TABLET BY MOUTH EVERY DAY TAKE ONE TABLET BY MOUTH EVERY DAY SOLD: 04/23/2020 [facility] 15 mg 11/09/2019 12:00:00 AM EDT tablet extended release 24hr 30 TAKE ONE TABLET BY MOUTH EVERY DAY TAKE ONE TABLET BY MOUTH EVERY DAY SOLD: 06/19/2020 [facility] 20 mg 09/08/2019 12:00:00 AM EDT tablet 90 TAKE ONE TABLET BY MOUTH EVERY DAY WITH FOOD ONCE A DAY TAKE ONE TABLET BY MOUTH EVERY DAY WITH FOOD ONCE A DAY SOLD: 02/19/2020 [facility] 25 mg 06/03/2019 12:00:00 AM EST tablet 45 TAKE ONE HALF TABLET BY MOUTH ONCE DAILY TAKE ONE HALF TABLET BY MOUTH ONCE DAILY SOLD: 01/13/2020 [facility] 25 mg 06/03/2019 12:00:00 AM EST tablet 45 TAKE ONE HALF TABLET BY MOUTH ONCE DAILY TAKE ONE HALF TABLET BY MOUTH ONCE DAILY SOLD: 04/23/2020 [facility] Insurance Providers Payer name Policy type / Coverage type Policy ID Covered democrat ID Covered democrat's relationship to ronquillo Policy [place] Plan Information [employer] MEDICARE BLUE PPO G [id number] Self [id number] BS Medicare Blue [place] [id number] Self V [id number] BS Medicare Blue [place] [id number] Self V [id number] MEDICARE BLUE PPO [id number] SP [id number] AETNA MEDICARE [id number] SP MEBSM 1DP AETNA MEDICARE [id number] SP MEBSM 1DP AETNA MEDICARE [id number] SP MEBSM 1DP AETNA MEDICARE [id number] SP MEBSM 1DP AETNA MEDICARE -O/P [id number] Aetna Medicare Commercial [id number] Self [id number] ANSI-Medicaid [id number] ANS-Medicare Part B [id number] ANS-Medicare Part B [id number] MEDICARE [id number] SP [id number] SELF PAY UNAVAILABLE SP UNAVAILA BLE MEDICARE BLUE PPO [id number] SP [id number] ANSI-Medicare Part B [id number] ANSI-Medicaid [id number] ANSI-Medicaid [id number] ANSI-Medicare Part B [id number] ANSI-Medicaid [id number] ANSI-Medicare Part B [id number] ANSI-Medicaid [id number] ANSI-Medicare Part B [id number] ANSI-Medicare Part B [id number] ANSI-Medicaid [id number] ANSI-Medicare Part B [id number] ANSI-Medicaid [id number] ANSI-Medicaid [id number] ANSI-Medicare Part B [id number] ANSI-Medicaid [id number] ANSI-Medicare Part B [id number] ANSI-Medicaid [id number] ANSI-Medicare Part B [id number] ANSI-Medicare Part B [id number] ANSI-Medicaid [id number] ANSI-Medicaid [id number] ANSI-Medicare Part B [id number] ANSI-Medicaid [id number] ANSI-Medicare Part B [id number] ANSI-Medicare Part B [id number] ANSI-Medicaid [id number] ANSI-Medicaid [id number] ANSI-Medicare Part B [id number] ANSI-Medicaid [id number] ANSI-Medicare Part B [id number] MEDICARE BLUE PPO 306 [id number] SP [id number] [facility] B [id number] S [id number] ANSI-Medicare Part B [id number] ANSI-Medicaid [id number] ANSI-Medicare Part B [id number] ANSI-Medicaid [id number] ANSI-Medicaid [id number] ANSI-Medicare Part B [id number] ANSI-Medicaid [id number] ANSI-Medicare Part B [id number] ANSI-Medicare Part B [id number] ANSI-Medicaid [id number] ANSI-Medicare Part B [id number] ANSI-Medicaid [id number] ANSI-Medicare Part B [id number] ANSI-Medicaid [id number] [place] [id number] Self V [id number] BS [place] Commercial [id number] Self V [id number] MEDICARE [id number] SP [id number] A MEDICAID [id number] SP [id number] MEDICARE [id number] SP [id number] MEDICARE BLUE PPO [id number] SP [id number] HUMANA GOLD [id number] SP [id number] HUMANA GOLD [id number] SP [id number] HUMANA PPO [id number] SP [id number] AETNA MEDICARE [id number] SP MEBSM 1DP AETNA MEDICARE O [id number] S MEBSM 1DP AETNA MEDICARE [id number] SP MEBSM 1DP Problems, Conditions, and Diagnoses No Information Surgeries/Procedures No Information Results ID Date Data Source [id number] 11/13/2020 10:40:00 PM EDT [facility] Name Value Range Interpretation Code Description Data Patito rce(s) Supporting Document(s) SARS coronavirus 2 RNA [Presence] in Res piratory specimen by GLORIA with probe detection NEGATIVE [facility] This lab was ordered by [facility] a nd reported by [facility]. Procedure Social History Code Duration Value Status Description Data Source(s ) Smoking 02/01/2021 12:00:00 AM EDT Never Smoker completed Never S moker eCW1 ([facility]) Smoking 11/26/2020 12:00:00 AM EDT Never Smoker completed Never S moker eCW1 ([facility]) Smoking 11/26/2020 12:00:00 AM EDT Never Smoker completed Never S moker eCW1 ([facility]) Smoking 11/26/2020 12:00:00 AM EDT Never Smoker completed Never S moker eCW1 ([facility]) Smoking 11/26/2020 12:00:00 AM EDT Never Smoker completed Never S moker eCW1 ([facility]) Smoking 11/26/2020 12:00:00 AM EDT Never Smoker completed Never S moker eCW1 ([facility]) Smoking 06/26/2020 12:00:00 AM EST Never Smoker completed Never S moker eCW1 ([facility]) Smoking 06/26/2020 12:00:00 AM EST Never Smoker completed Never S moker eCW1 ([facility]) Smoking 06/26/2020 12:00:00 AM EST Never Smoker completed Never S moker eCW1 ([facility]) Smoking 06/26/2020 12:00:00 AM EST Never Smoker completed Never S moker eCW1 ([facility]) Smoking 06/26/2020 12:00:00 AM EST Never Smoker completed Never S moker eCW1 ([facility]) Smoking 06/26/2020 12:00:00 AM EST Never Smoker completed Never S moker eCW1 ([facility]) Smoking 06/26/2020 12:00:00 AM EST Never Smoker completed Never S moker eCW1 ([facility]) Smoking 06/26/2020 12:00:00 AM EST Never Smoker completed Never S moker eCW1 ([facility]) Smoking 03/26/2020 12:00:00 AM EST Never Smoker completed Never S moker eCW1 ([facility]) Smoking 03/26/2020 12:00:00 AM EST Never Smoker completed Never S moker eCW1 ([facility]) Smoking 03/26/2020 12:00:00 AM EST Never Smoker completed Never S moker eCW1 ([facility]) Vital Signs ID Date Data Source UNK Name Value Range Interpretation Code Description Data Source(s) Body weight 260 [lb_av] 260 [lb_av] eCW1 ([facility]) Body height 63.5 [in_i] 63.5 [in_i] eCW1 ([facility]) Body mass index (BMI) [Ratio] 45.33 kg/m2 45.33 kg/m2 eCW1 ([facility]) Heart rate 94 /min 94 /min eCW1 ([facility]) Respiratory rate 18 /min 18 /min eCW1 (Count includes the [facility]) Body temperature 97.5 [degF] 97.5 [degF] eCW1 ( [facility]) Systolic blood pressure 138 mm[Hg] 138 mm[Hg] e CW1 ([facility]) Diastolic blood pressure 84 mm[Hg] 84 mm[Hg] eCW1 ([facility]) Respiratory rate 12 /min 12 /min MEDENT ( [facility], ) Body height 61 [in_i] 61 [in_i] MEDENT ([facility], ) 5'1" Body weight 245.00 [lb_av] 245.00 [lb_av] MEDEN T ([facility], ) Body mass index (BMI) [Ratio] 46.3 kg/m2 46.3 k g/m2 MEDENT ([facility], ) Weinert body weight 105 [lb_av] 105 [lb_av] MEDEN T ([facility], ) Body weight 260 [lb_av] 260 [lb_av] eCW1 ([facility]) Body temperature 98.0 [degF] 98.0 [degF] eCW1 ( [facility]) Body height 63.5 [in_i] 63.5 [in_i] eCW1 ([facility]) Systolic blood pressure 136 mm[Hg] 136 mm[Hg] e CW1 ([facility]) Diastolic blood pressure 80 mm[Hg] 80 mm[Hg] eCW1 ([facility]) Body mass index (BMI) [Ratio] 45.33 kg/m2 45.33 kg/m2 eCW1 ([facility]) Heart rate 74 /min 74 /min eCW1 ([facility]) Respiratory rate 20 /min 20 /min eCW1 (Count includes the [facility]) Body weight 257 [lb_av] 257 [lb_av] eCW1 ([facility]) Body height 63.5 [in_i] 63.5 [in_i] eCW1 [facility] Health) Body mass index (BMI) [Ratio] 44.81 kg/m2 44.81 kg/m2 eCW1 ([facility]) Heart rate 87 /min 87 /min eCW1 ([facility]) Respiratory rate 22 /min 22 /min eCW1 ([facility]) Body temperature 98.3 [degF] 98.3 [degF] eCW1 ( [facility]) Systolic blood pressure 140 mm[Hg] 140 mm[Hg] e CW1 ([facility]) Diastolic blood pressure 82 mm[Hg] 82 mm[Hg] eCW1 ([facility])
--- OUTSIDE RECORDS SUMMARY | 2021-03-11 15:46 | CCD ---
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 Active confirmed 072932061 Problem Essential (primary) hypertension I10 Active conf irmed 46454469 Problem Nontraumatic intracerebral hemorrhage, unspecified I61.9 Active confirmed 199633020158950 Problem Obstructive sleep apnea (adult) (pediatric) G47.33 Active confirmed 82308608 Problem Sleep related hypoventilation in conditions clas sified elsewhere G47.36 Active confirmed 823297669 Problem Obesity, morbid, BMI 40.0-49.9 E66.01 Active confir med 770536585 Problem Reflux esophagitis K21.0 Active confirmed 2 28792557 Problem Vitamin D deficiency E55.9 Active confirmed 64661767 Problem Leukocytosis, unspecified type D72.829 Active confi rmed 338868246 Problem Mixed hyperlipidemia E78.2 Active confirmed 109267369 Problem Meningioma D32.9 Active confirmed 468263231 Problem Major depressive disorder, single episode, unspecified F32.9 Active confirmed 37415008 Problem Urge incontinence N39.41 Active confirmed 87 874681 Problem Chronic rhinitis J31.0 Active confirmed 860 41796 Problem Paroxysmal atrial fibrillation I48.0 Active confir med 627364453 Problem Chronic hypoxemic respiratory failure J96.11 Ac tive confirmed 571397893 ALLERGIES Allergen (clinical drug ingredient) Drug/Non Drug Allergy do cumented on EMR Reaction Allergy Type Onset Date Status Aspirin aspirin hemorrhoidal bleeding Non Drug Allergy Active Codiene Hives Non Drug Allergy Active Biaxin ( meds that end in Axin) - per patient Rash N on Drug Allergy Active ENCOUNTERS from 1948 to 2020-12-18 Encounter Location Date Provider Diagnosis [facility] Carrie [address] [phone] [place] [address] Nov, Emely Novak IMMUNIZATIONS Vaccine Route Administration [...] Education Language: Question Answer Notes Languages spoken: Peruvian Christianity: Question Answer Notes Christianity 13 Latter-Day Sexual Hx: Question Answer Notes Had sex [...] End Date Status Vitamin D3 1.25 MG (85892 UT) 1 capsule Orally weekly Not-Taking Bisoprolol [...] Information RESULTS No Results REASON FOR VISIT Atorvastatin Calcium 40 MG Tablet MEDICAL (GENERAL) HISTORY Type Description [...] day(s) Jun, Next Appt Details Provider Name:Mirna Francois, 9 02:00:00 PM, [address] [facility], , [place], [address], Provider Name:Emely Novak, 2021 10:30:00 AM, [address], , [place], [address], Insurance Providers Payer Name Payer Address Payer Phone Insured Name Patient Relati onship to Insured Coverage Start Date Coverage End Date NANCY CASTRO [address] [facility] [address] ЕЛЕНА LOPEZ
--- OUTSIDE RECORDS SUMMARY | 2021-03-11 15:46 | CCD ---
Author Author [facility] Organization [facility] Address Unknown Phone Unavailable Care Team Providers Care Driver Education Road Instructor Name Role Phone Mirna Francois Unavailable PROBLEMS Type Condition ICD9-CM Code [id number] Code Onset Dates Condition S tatus W/U Status Risk SNOMED Code Notes Problem Other sequelae following unspecified cerebrovascular d isease I69.998 Active confirmed 290347927 Problem Essential (primary) hypertension I10 Active conf irmed 08254806 Problem Nontraumatic intracerebral hemorrhage, unspecified I61.9 Active confirmed 403371286849369 Problem Obstructive sleep apnea (adult) (pediatric) G47.33 Active confirmed 70004409 Problem Sleep related hypoventilation in conditions clas sified elsewhere G47.36 Active confirmed 396699954 Problem Obesity, morbid, BMI 40.0-49.9 E66.01 Active confir med 074456515 Problem Reflux esophagitis K21.0 Active confirmed 2 37407894 Problem Vitamin D deficiency E55.9 Active confirmed 40489290 Problem Leukocytosis, unspecified type D72.829 Active confi rmed 893418959 Problem Mixed hyperlipidemia E78.2 Active confirmed 820031654 Problem Meningioma D32.9 Active confirmed 508108840 Problem Major depressive disorder, single episode, unspecified F32.9 Active confirmed 27490142 Problem Urge incontinence N39.41 Active confirmed 87 812557 Problem Chronic rhinitis J31.0 Active confirmed 860 01770 Problem Paroxysmal atrial fibrillation I48.0 Active confir med 434726795 Problem Chronic hypoxemic respiratory failure J96.11 Ac tive confirmed 562595175 ALLERGIES Allergen (clinical drug ingredient) Drug/Non Drug Allergy do cumented on EMR Reaction Allergy Type Onset Date Status Aspirin aspirin hemorrhoidal bleeding Non Drug Allergy Active Codiene Hives Non Drug Allergy Active Biaxin ( meds that end in Axin) - per patient Rash N on Drug Allergy Active ENCOUNTERS from 1948 to 2020-12-25 Encounter Location Date Provider Diagnosis [facility] [address] [phone] [place] [address] Dec, Mirna Francois IMMUNIZATIONS Vaccine Route Administration Date Status Influenza [...] Education Language: Question Answer Notes Languages spoken: Kyrgyz Mu-Ism: Question Answer Notes Mu-Ism 13 Jew Sexual Hx: Question Answer Notes Had sex [...] End Date Status Vitamin D3 1.25 MG (51323 UT) 1 capsule Orally weekly Not-Taking Bisoprolol [...] Information RESULTS No Results REASON FOR VISIT appt MEDICAL (GENERAL) HISTORY Type Description Date Medical [...] 30 day(s) Jun, Next Appt Details Provider Name:Emely Novak, 2021 10:30:00 AM, [address], , [place], [address], Insurance Providers Payer Name Payer Address Payer Phone Insured Name Patient Relati onship to Insured Coverage Start Date Coverage End Date NANCY CASTRO [address] [address] [facility] [address] ЕЛЕНА LOPEZ
--- OUTSIDE RECORDS SUMMARY | 2021-03-11 15:46 | CCD ---
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 Truck Driver Name Role Phone Emely Novak Unavailable PROBLEMS Type Condition ICD9-CM Code [id number] Code Onset Dates Condition S tatus W/U Status Risk SNOMED Code Notes Problem Other sequelae following unspecified cerebrovascular d isease I69.998 Active confirmed 696714472 Problem Essential (primary) hypertension I10 Active conf irmed 42943056 Problem Nontraumatic intracerebral hemorrhage, unspecified I61.9 Active confirmed 502800114688661 Problem Obstructive sleep apnea (adult) (pediatric) G47.33 Active confirmed 21284878 Problem Sleep related hypoventilation in conditions clas sified elsewhere G47.36 Active confirmed 595318789 Problem Obesity, morbid, BMI 40.0-49.9 E66.01 Active confir med 393296334 Problem Reflux esophagitis K21.0 Active confirmed 2 74276880 Problem Vitamin D deficiency E55.9 Active confirmed 91750658 Problem Leukocytosis, unspecified type D72.829 Active confi rmed 092239915 Problem Mixed hyperlipidemia E78.2 Active confirmed 735383566 Problem Meningioma D32.9 Active confirmed 769550151 Problem Major depressive disorder, single episode, unspecified F32.9 Active confirmed 06505501 Problem Urge incontinence N39.41 Active confirmed 87 195401 Problem Chronic rhinitis J31.0 Active confirmed 860 14917 Problem Paroxysmal atrial fibrillation I48.0 Active confir med 986113733 Problem Chronic hypoxemic respiratory failure J96.11 Ac tive confirmed 007657060 ALLERGIES Allergen (clinical drug ingredient) Drug/Non Drug Allergy do cumented on EMR Reaction Allergy Type Onset Date Status Aspirin aspirin hemorrhoidal bleeding Non Drug Allergy Active Codiene Hives Non Drug Allergy Active Biaxin ( meds that end in Axin) - per patient Rash N on Drug Allergy Active ENCOUNTERS from 1948 to 2020-12-12 Encounter Location Date Provider Diagnosis [facility] [address] [facility] [phone] [place] [address] Nov, Emely Novak IMMUNIZATIONS Vaccine Route Administration [...] Education Language: Question Answer Notes Languages spoken: Rwandan Nondenominational: Question Answer Notes Nondenominational 13 Worship Sexual Hx: Question Answer Notes Had sex [...] End Date Status Vitamin D3 1.25 MG (03776 UT) 1 capsule Orally weekly Not-Taking Bisoprolol [...] Information RESULTS No Results REASON FOR VISIT refills MEDICAL (GENERAL) HISTORY Type Description Date Medical [...] Details Provider Name:Mirna Francois, 9 02:00:00 PM, [address] [facility] [address] [address], , [place], [address], Provider Name:Emely Novak, 2021 10:30:00 AM, [address] [facility], , [place], [address], Insurance Providers Payer Name Payer Address Payer Phone Insured Name Patient Relati onship to Insured Coverage Start Date Coverage End Date NANCY CHOPRA [address] [address] [facility] [address] ЕЛЕНА LOPEZ
--- OUTSIDE RECORDS SUMMARY | 2021-03-11 17:23 | CCD ---
Author Author [facility] Organization [facility] Address Unknown Phone Unavailable Care Team Providers Care Glass Cylinder Flanger Name Role Phone Tyrel Meyers MD Unavailable [...] is protected by Article 27-F of the [facility] Public Health law. If you continue you may have access to information: Regarding HIV / AIDS; Provided by facilities licensed or operated by the [facility] Office of Mental Health; or Provided by the [facility] Office for People With Developmental Disabilities. If such information is present, then the following [facility] mandated warning applies: This information has been [...] law may result in a fine or group home sentence or both. A general authorization for the release of medical or other information is NOT sufficient authorization for further disc losure. Family History Family Member Name Family Member Gender Family Member Status Date o f Status Description Data Source(s) Unknown Unknown Problem MEDENT ([facility], ) Unknown Female Problem MEDENT ([facility] Unknown Male Problem MEDENT ([facility]) at age 76 Encounters Encounter Providers Location Date Indications Data Source(s ) Unknown [address] [facility] [address] 2021 12:00:00 AM EDT [facility]) Unknown [address] [facility] [address] 12/25/2020 12:00:00 AM EDT [facility]) Unknown [address] [facility] [address] 12/18/2020 12:00:00 AM EDT eCW1 ([facility]) Unknown [address] [facility] [address] 12/12/2020 12:00:00 AM EDT eCW1 ([facility]) Unknown [address] [facility] [address] 12/12/2020 12:00:00 AM EDT eCW1 [facility]) Outpatient [address] [facility] [address] 11/26/2020 12:00:00 AM EDT eCW1 ([facility]) Unknown [address] [facility] [address] 10/31/2020 12:00:00 AM EDT eCW1 ([facility]) [place] [address] [facility] [place] [address] 10/23/2020 12:00:00 AM EDT eCW1 ([facility]) [place] [address] [facility] [place] [address] 09/04/2020 12:00:00 AM EDT eCW1 ([facility]) [place] [address] [facility] [place] [address] 08/17/2020 12:00:00 AM EDT eCW1 ([facility]) [place] [address] [facility] [place] [address] 07/27/2020 12:00:00 AM EDT eCW1 ([facility]) Office Visit Attender: Jg Meyers MD Main office - [facility] 07/24/2020 10:30:00 AM EDT MEDENT ([facility] ) [place] [address] [facility] [place] [address] 07/03/2020 12:00:00 AM EDT eCW1 ([facility]) Unknown [address] [facility] [place] [address] 07/03/2020 12:00:00 AM EDT eCW1 ([facility]) Outpatient [address] [facility] [address] 06/26/2020 12:00:00 AM EST eCW1 ([facility]) [place] [address] [facility] [place] [address] 06/11/2020 12:00:00 AM EST eCW1 ([facility]) [place] [address] [facility] [place] [address] 04/26/2020 12:00:00 AM EST eCW1 ([facility]) Outpatient [address] [facility] [place] [address] 03/26/2020 12:00:00 AM EST eCW1 ([facility]) Unknown [address] [facility] [place] [address] 03/05/2020 12:00:00 AM EST eCW1 ([facility]) [place] [address] [facility] [place] [address] 02/17/2020 12:00:00 AM EDT eCW1 ([facility]) Unknown [address] [facility] [place] [address] 01/30/2020 12:00:00 AM EDT eCW1 ([facility]) Unknown [address] [facility] [place] [address] 01/23/2020 12:00:00 AM EDT eCW1 ([facility]) Medications Medication Brand Name Start Date Product [...] propionate 0.05 MG/ACTUAT Metered Dose [facility] [place] 50 mcg/actuation FLUTICASONE PROPIONATE 11/26/2020 12:00:00 AM [...] EVERY DAY SOLD: 11/30/2020 [facility] Calcitriol 0.54394 MG Oral Capsule 0.25 mcg CALCITRIOL 08/29/2020 [...] type / Coverage type Policy ID Covered alliance party ID Covered alliance party's relationship to ronquillo Policy [place] Plan Information EXCELLUS MEDICARE BLUE PPO G [id number] Self [id number] BS Medicare Blue [employer] Commercial [id number] Self V [id number] BS Medicare Blue [employer] Commercial [id number] Self V [id number] MEDICARE BLUE PPO 306 [id number] SP [id number] AETNA MEDICARE [id number] SP MEBSM 1DP AETNA MEDICARE [id number] SP MEBSM 1DP AETNA MEDICARE [id number] SP MEBSM 1DP AETNA MEDICARE [id number] SP MEBSM 1DP AETNA MEDICARE -O/P [id number] Aetna Medicare Commercial [id number] Self [id number] ANSI-Medicaid [id number] ANS-Medicare Part B [id number] ANS-Medicare Part B [id number] MEDICARE [id number] SP [id number] SELF PAY UNAVAILABLE SP UNAVAILA BLE MEDICARE BLUE PPO 306 [id number] SP [id number] ANSI-Medicare Part B [id number] ANSI-Medicaid [id number] ANSI-Medicaid [id number] ANSI-Medicare Part B [id number] ANSI-Medicaid [id number] ANSI-Medicare Part B [id number] ANSI-Medicaid [id number] ANSI-Medicare Part B [id number] ANSI-Medicare Part B [id number] ANSI-Medicaid [id number] ANSI-Medicare Part B [id number] ANSI-Medicaid [id number] ANSI-Medicaid [id number] ANSI-Medicare Part B [id number] ANSI-Medicaid [id number] ANSI-Medicare Part B [id number] ANSI-Medicaid [id number] ANSI-Medicare Part B [id number] ANSI-Medicare Part B [id number] ANSI-Medicaid [id number] ANSI-Medicaid [id number] ANSI-Medicare Part B [id number] ANSI-Medicaid [id number] ANSI-Medicare Part B [id number] ANSI-Medicare Part B [id number] ANSI-Medicaid [id number] ANSI-Medicaid [id number] ANSI-Medicare Part B [id number] ANSI-Medicaid [id number] ANSI-Medicare Part B [id number] MEDICARE BLUE PPO 306 [id number] SP [id number] [facility] B [id number] S [id number] ANSI-Medicare Part B [id number] ANSI-Medicaid [id number] ANSI-Medicare Part B [id number] ANSI-Medicaid [id number] ANSI-Medicaid [id number] ANSI-Medicare Part B [id number] ANSI-Medicaid [id number] ANSI-Medicare Part B [id number] ANSI-Medicare Part B [id number] ANSI-Medicaid [id number] ANSI-Medicare Part B [id number] ANSI-Medicaid [id number] ANSI-Medicare Part B [id number] ANSI-Medicaid [id number] [employer] [id number] Self V [id number] BS [employer] [id number] Self V [id number] MEDICARE [id number] SP [id number] A MEDICAID [id number] SP [id number] MEDICARE [id number] SP [id number] A MEDICARE BLUE PPO [id number] SP [id number] HUMANA GOLD [id number] SP [id number] HUMANA GOLD [id number] SP [id number] HUMANA PPO [id number] SP [id number] AETNA MEDICARE [id number] SP MEBSM 1DP AETNA MEDICARE O [id number] S MEBSM 1DP AETNA MEDICARE [id number] SP MEBSM 1DP Problems, Conditions, and Diagnoses No Information Surgeries/Procedures No Information Results ID Date Data Source [id number] 11/13/2020 10:40:00 PM EDT [facility] Name Value Range Interpretation Code Description Data Patito rce(s) Supporting Document(s) SARS coronavirus 2 RNA [Presence] in Res piratory specimen by GLORIA with probe detection NEGATIVE [facility] This lab was ordered by [facility] a nd reported by [facility]. Procedure Social History Code Duration Value Status Description Data Source(s ) Smoking 02/01/2021 12:00:00 AM EDT Never Smoker completed Never S moker eCW1 ([facility]) Smoking 11/26/2020 12:00:00 AM EDT Never Smoker completed Never S moker eCW1 ([facility]) Smoking 11/26/2020 12:00:00 AM EDT Never Smoker completed Never S moker eCW1 ([facility]) Smoking 11/26/2020 12:00:00 AM EDT Never Smoker completed Never S moker eCW1 ([facility]) Smoking 11/26/2020 12:00:00 AM EDT Never Smoker completed Never S moker eCW1 ([facility]) Smoking 11/26/2020 12:00:00 AM EDT Never Smoker completed Never S moker eCW1 ([facility]) Smoking 06/26/2020 12:00:00 AM EST Never Smoker completed Never S moker eCW1 ([facility]) Smoking 06/26/2020 12:00:00 AM EST Never Smoker completed Never S moker eCW1 ([facility]) Smoking 06/26/2020 12:00:00 AM EST Never Smoker completed Never S moker eCW1 ([facility]) Smoking 06/26/2020 12:00:00 AM EST Never Smoker completed Never S moker eCW1 ([facility]) Smoking 06/26/2020 12:00:00 AM EST Never Smoker completed Never S moker eCW1 ([facility]) Smoking 06/26/2020 12:00:00 AM EST Never Smoker completed Never S moker eCW1 ([facility]) Smoking 06/26/2020 12:00:00 AM EST Never Smoker completed Never S moker eCW1 ([facility]) Smoking 06/26/2020 12:00:00 AM EST Never Smoker completed Never S moker eCW1 ([facility]) Smoking 03/26/2020 12:00:00 AM EST Never Smoker completed Never S moker eCW1 ([facility]) Smoking 03/26/2020 12:00:00 AM EST Never Smoker completed Never S moker eCW1 ([facility]) Smoking 03/26/2020 12:00:00 AM EST Never Smoker completed Never S moker eCW1 ([facility]) Vital Signs ID Date Data Source UNK Name Value Range Interpretation Code Description Data Source(s) Body weight 260 [lb_av] 260 [lb_av] eCW1 ([facility]) Body height 63.5 [in_i] 63.5 [in_i] eCW1 ([facility]) Body mass index (BMI) [Ratio] 45.33 kg/m2 45.33 kg/m2 eCW1 ([facility]) Heart rate 94 /min 94 /min eCW1 ([facility] hospital) Respiratory rate 18 /min 18 /min eCW1 ([facility]) Body temperature 97.5 [degF] 97.5 [degF] eCW1 ( [facility]) Systolic blood pressure 138 mm[Hg] 138 mm[Hg] e CW1 ([facility]) Diastolic blood pressure 84 mm[Hg] 84 mm[Hg] eCW1 ([facility]) Respiratory rate 12 /min 12 /min MEDENT ( [facility], ) Body height 61 [in_i] 61 [in_i] MEDENT ([facility], ) 5'1" Body weight 245.00 [lb_av] 245.00 [lb_av] MEDEN T ([facility], ) Body mass index (BMI) [Ratio] 46.3 kg/m2 46.3 k g/m2 MEDENT ([facility], ) [place] body weight 105 [lb_av] 105 [lb_av] MEDEN T ([facility], ) Body weight 260 [lb_av] 260 [lb_av] eCW1 ([facility]) Body temperature 98.0 [degF] 98.0 [degF] eCW1 ( [facility]) Systolic blood pressure 136 mm[Hg] 136 mm[Hg] e CW1 ([facility]) Diastolic blood pressure 80 mm[Hg] 80 mm[Hg] eCW1 ([facility]) Body height 63.5 [in_i] 63.5 [in_i] eCW1 ([facility]) Body mass index (BMI) [Ratio] 45.33 kg/m2 45.33 kg/m2 eCW1 ([facility]) Heart rate 74 /min 74 /min eCW1 ([facility] hospital) Respiratory rate 20 /min 20 /min eCW1 ([facility]) Body weight 257 [lb_av] 257 [lb_av] eCW1 ([facility]) Body height 63.5 [in_i] 63.5 [in_i] eCW1 ([facility]) Body mass index (BMI) [Ratio] 44.81 kg/m2 44.81 kg/m2 eCW1 ([facility]) Heart rate 87 /min 87 /min eCW1 ([facility] hospital) Respiratory rate 22 /min 22 /min eCW1 ([facility]) Body temperature 98.3 [degF] 98.3 [degF] eCW1 ( [facility]) Systolic blood pressure 140 mm[Hg] 140 mm[Hg] e CW1 ([facility]) Diastolic blood pressure 82 mm[Hg] 82 mm[Hg] eCW1 ([facility])
[2021-03-11] MEDS ORDERED: HOME MED LIST COMPLETE! XX SCH (17:35)
[2021-03-11] MEDS ORDERED: **hydrALAZINE** 10 MG TAB PO PRN (17:35)
--- NOTE | 2021-03-11 17:40 | HPEPDOC ---
General Date of Admission Mar 11, 2021 at 11:54 Date of Service: Mar 11, 2021 Chief Complaint The patient is a 71-year-old female admitted with a reason for visit of Hypertensive Urgency. History of Present Illness Ms. Cheung is a 71 year old female with history of hemorrhagic CVA in 2010, obesity, AZALIA, OHS, and paroxysmal atrial fibrillation who presents to the hospital for fall and found to have hypertensive urgency. Patient tells me that about 2 months ago, she had stopped taking her medications. She does not know why she decided to stop. She tells me that she cannot get out of bed like other people can. She had to get out of bed from backing out first. Her foot got caught on her other leg, and she tripped causing her to fall out of bed. She called an ambulance who took her to the ER for evaluation. While here, she was found to have hypertensive urgency with a peak blood pressure of 223/110. Otherwise afebrile, nontachycardic, not hypoxic. Per ED provider, she was covered in new and old urine and feces. When I spoke to patient, she is hoping to find extra help at home. I offered to consideration of possible jail placement. She will think about it. Otherwise, we will have PT and OT work with her. Patient will be placed in observation for hypertensive urgency. Home Medications Scheduled Amlodipine Besylate (Amlodipine Besylate) 10 Mg Tablet, 10 MG PO DAILY, (Reported) Atorvastatin Calcium (Atorvastatin Calcium) 40 Mg Tab, 40 MG PO DAILY, (Reported) Bisoprolol Fumarate (Bisoprolol Fumarate) 5 Mg Tablet, 5 MG PO DAILY, (Reported) Calcitriol (Rocaltrol) 0.25 Mcg Capsule, 0.25 MCG PO QWEEK, (Reported) SUNDAYS Chlorthalidone (Chlorthalidone) 25 Mg Tablet, 12.5 MG PO DAILY, (Reported) Cholecalciferol (Vitamin D3) (Vitamin D3) 25 Mcg Capsule, 25 MCG PO DAILY, (Reported) Citalopram Hydrobromide (Citalopram HBr) 20 Mg Tablet, 20 MG PO DAILY, (Reported) Loratadine (Loratadine) 10 Mg Tablet, 10 MG PO DAILY, (Reported) Losartan Potassium (Losartan Potassium) 25 Mg Tablet, 25 MG PO DAILY, (Reported) Oxybutynin Chloride (Oxybutynin Chloride ER) 15 Mg Tab.er.24, 15 MG PO DAILY, (Reported) Pantoprazole Sodium (Pantoprazole Sodium) 40 Mg Tab, 40 MG PO DAILY, (Reported) Rivaroxaban (Xarelto) 15 Mg Tablet, 15 MG PO DAILY, (Reported) Allergies Coded Allergies: codeine (Verified Allergy, Intermediate, HIVES, 07/30/18) ENVIRONMENTAL (Unverified Allergy, Unknown, 06/04/09) Past Medical History Medical History 1. Degenerative disc disease of LS spine 2. Osteoarthritis 3. Hypertension 4. GERD 5. Seasonal allergies 6. Hemorrhoids 7. Obesity 8. 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 Hyperlipidemia 10. Vitamin D deficiency 11. Proximal atrial fibrillation 12. AZALIA, refuses CPAP 13. OHS 14. 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 Cataracts 16. CKD stage III Surgical History 1. Hysterectomy/BSO for cysts 2. EGD 3. Colonoscopy in 2013 4. Hemorrhoid surgery 5. Left cataract Family History Father: in his 80s, history of emphysema Mother: in her 70s, history of CVA and hypertension Social History * Smoker: Denies Alcohol: Denies Drugs: denies A-FIB/CHADSVASC A-FIB History Current/History of A-Fib/PAF?: Yes Current PO Anticoag Therapy: Yes Review of Systems Constitutional: Denies: Chills, Fever Eyes: Denies: Vision change ENT: Reports: Post Nasal Drip, Sore Throat Skin: Denies: Rash Pulmonary: Reports: Dyspnea; Denies: Cough Cardiovascular: Denies: Chest Pain Gastrointestinal: Denies: Abdominal Pain, Diarrhea Genitourinary: Denies: Dysuria Hematologic: Reports: Bruising (On hip secondary to fall) Neurological: Denies: Numbness Psych: Reports: Anxiety, Depression Physical Examination General Exam: Positive: Alert, Cooperative Eye Exam: Positive: EOMI; Negative: Sclera icteric ENT Exam: Positive: Tongue Midline Neck Exam: Positive: Supple Chest Exam: Positive: Clear to auscultation, Diminished Heart Exam: Positive: Rate Normal, Regular Rhythm Abdomen Exam: Positive: Normal bowel sounds, Soft, Other (Obese); Negative: Tenderness Extremity Exam: Positive: Other (No pitting edema the feet do look swollen) Neuro Exam: Positive: Normal Speech, Cranial Nerves 3-12 NL Psych Exam: Positive: Mental status NL, Mood NL Vital Signs Vital Signs Date Time Temp Pulse Resp B/P (MAP) Pulse Ox O2 Delivery O2 Flow Rate FiO2 03/11/21 15:53 74 17 168/98 (121) 95 Room Air 03/11/21 12:29 98.1 Laboratory Data Labs 24H Laboratory Tests 2 03/11/21 14:20: Nucleated Red Blood Cells % (auto) 0.0, Coronavirus (COVID-19)(PCR) NEGATIVE, Influenza Type A (RT-PCR) NEGATIVE, Influenza Type B (RT-PCR) NEGATIVE, Respiratory Syncytial Virus (PCR) NEGATIVE 03/11/21 16:05: POC Glucose (Misc Panel) 98, POC Sodium (Misc Panel) 144, POC Potassium (Misc P darci) 3.7, POC Chloride (Misc Panel) 102, POC Total CO2 (Misc Panel) 31.0H, POC Blood Urea Nitrogen (Misc Panel 18, POC Ionized Calcium (Misc Panel) 4.9, POC Creatinine (Misc Panel) 0.9, POC Hematocrit (Misc Panel) 46.0 CBC/BMP Laboratory Tests 03/11/21 14:20 Assessment/Plan Ms. Cheung is a 71 year old female with history of hemorrhagic CVA in 2010, obesity, AZALIA, OHS, and paroxysmal atrial fibrillation who presents to the hospital for fall and found to have hypertensive urgency. Patient has not been compliant with her medications for the past 2 months. She fell out of bed and came into the ED for evaluation. Patient was found to have hypertensive urgen cy. Otherwise, patient may not be able to care for self at home and she is looking for extra help at home. Plan / VTE VTE Prophylaxis Ordered?: Yes Plan Plan 1. Hypertensive urgency Patient is noncompliant with her medications Continue amlodipine and bisoprolol Discontinued chlorthalidone Increase losartan from 25 mg daily to 50 mg daily Added on as needed p.o. hydralazine for systolic blood pressures greater than 160 2. GERD Continue omeprazole 3. Hyperlipidemia Continue atorvastatin We will check lipid profile and CMP (for evaluation of liver) 4. Paroxysmal atrial fibrillation Continue bisoprolol Continue rivaroxaban 5. History of hemorrhagic CVA in 2010 PT and OT ordered 6. Anxiety and depression Continue citalopram 7. DVT prophylaxis Continue rifaximin Disposition: Pending control of blood pressure and PT and OT evaluation. KONRAD ZHAO DO Mar 11, 2021 17:39
[2021-03-11 18:10] LABS: INR 0.95; PROTHROMBIN TIME 13.1 SECONDS (12.7-14.5)
[2021-03-11 18:11] LABS: PARTIAL THROMBOPLASTIN TIME 29.3 SECONDS (25.9-37.0)
[2021-03-11 18:25] LABS: CALCIUM LEVEL 9.4 MG/DL (8.8-10.2); CREATININE FOR GFR 1.1 MG/DL (0.55-1.30); GLOMERULAR FILTRATION RATE 51.8 (>39); POTASSIUM SERUM 3.6 MEQ/L (3.5-5.1)
[2021-03-11] MEDS: RIVAROXABAN 15 MG TAB (XARELTO) PO SCH (18:39)
[2021-03-11 19:07] LABS: ALBUMIN 3.2 GM/DL (3.2-5.2); BILIRUBIN,DIRECT 0.2 MG/DL (0.0-0.2); BILIRUBIN,TOTAL 0.6 MG/DL (0.2-1.0); TOTAL PROTEIN 6.8 GM/DL (6.4-8.2)
--- NOTE | 2021-03-11 19:44 | ECGEPIP ---
[facility] - ED Test Date: 2021-03-11 Pat Name: ЕЛЕНА REYNOSO Department: Room: - Gender: Female Skein Bander: MAYCOL : 1950 Requested By: Carlton Flor Order Number: [id number] Reading MD: Barbara Monsalve Measurements Intervals Tea Rate: 65 P: 55 MT: 146 QRS: -71 QRSD: 98 T: 33 QT: 446 QTc: 463 Interpretive Statements Normal sinus rhythm with sinus arrhythmia LAD Left anterior fascicular block Nonspecific T wave abnormality Baseline artifact may affect reading Baseline wandering may affect reading cw 11/13/[address] T wave changes Electronically Signed on 03-11-2021 19:44:07 EST by Barbara Monsalve
[2021-03-11] MEDS: NYSTATIN 100,000 UNITS/GM TOPICAL PWD 15 GM TOP SCH (21:00)
[2021-03-12 01:55] VITALS: BP 182/104
[2021-03-12] MEDS ORDERED: diphenhydrAMINE 25MG CAP PO PRN (02:10)
[2021-03-12] MEDS: DICLOFENAC EPOLAMINE 1.3 % PATCH TOP SCH ×3 (02:29→21:04)
[2021-03-12 05:06] VITALS: BP 177/83
[2021-03-12 05:57] LABS: HEMATOCRIT 42.3 % (36.0-47.0); HEMOGLOBIN 13.5 g/dl (12.0-15.5); MEAN CORPUSCULAR HEMOGLOBIN 27.3 pg (27.0-33.0); MEAN CORPUSCULAR HGB CONC 31.9 g/dl (32.0-36.5); MEAN CORPUSCULAR VOLUME 85.5 fl (80.0-96.0); PLATELET COUNT, AUTOMATED 322 10^3/uL (150-450); RED BLOOD COUNT 4.95 10^6/uL (4.00-5.40); WHITE BLOOD COUNT 9.4 10^3/uL (4.0-10.0)
[2021-03-12 06:29] LABS: ALBUMIN 2.8 GM/DL (3.2-5.2); ALT/SGPT 26 U/L (12-78); BILIRUBIN,TOTAL 0.5 MG/DL (0.2-1.0); BLOOD UREA NITROGEN 16 MG/DL (7-18); CALCIUM LEVEL 8.9 MG/DL (8.8-10.2); CARBON DIOXIDE LEVEL 28 MEQ/L (21-32); CHLORIDE LEVEL 110 MEQ/L (98-107); CHOLESTEROL LEVEL 133 MG/DL (<200); CREATININE FOR GFR 0.95 MG/DL (0.55-1.30); GLOMERULAR FILTRATION RATE > 60.0 (>39); GLUCOSE, FASTING 89 MG/DL (70-100); HDL CHOLESTEROL 48 MG/DL (>40); LDL CHOLESTEROL 67 MG/DL (<100); NON-HDL-C 85 MG/DL; POTASSIUM SERUM 3.6 MEQ/L (3.5-5.1); SODIUM LEVEL 144 MEQ/L (136-145); TOTAL PROTEIN 5.9 GM/DL (6.4-8.2); TRIGLYCERIDES LEVEL 92 MG/DL (<150)
[2021-03-12] MEDS: ACETAMINOPHEN 650MG ER TAB (TYLENOL ARTHRITIS) PO SCH ×3 (06:42→21:04)
[2021-03-12] MEDS ORDERED: LOSARTAN 50MG TABLET PO SCH (09:00)
[2021-03-12] MEDS: NYSTATIN 100,000 UNITS/GM TOPICAL PWD 15 GM TOP SCH ×2 (09:13→21:05)
[2021-03-12] MEDS: PANTOPRAZOLE 40MG TAB (PROTONIX) PO SCH (09:14)
[2021-03-12] MEDS: ATORVASTATIN 20 MG TAB PO SCH (09:14)
[2021-03-12] MEDS: bisoproloL fumarate 5 MG TAB PO SCH (09:14)
[2021-03-12] MEDS: CitaloPRAM (CeleXA) 20 MG TAB PO SCH (09:15)
[2021-03-12] MEDS: LORATADINE 10 MG TAB PO SCH (09:15)
--- NOTE | 2021-03-12 11:07 | IPNPDOC ---
Text Note Date of Service The patient was seen on 03/12/21. NOTE Subjective: Patient is a 71-year-old female admitted overnight for hypertensive urgency after stopping all of her medications 2 months ago and getting her foot stuck in the door and falling to the ground unable to get up. This morning she is in good spirits and looking forward to physical therapy. She remains adamant that she would like to be placed in assisted living. She otherwise denies any fever, chills, chest pain, difficulty breathing, lightheadedness, dizziness, abdominal pain, nausea, vomiting. Objective: General: Mildly tired appearing female who appears stated age in NAD HEENT: NC, AT. EOMI, no scleral icterus. No pharyngeal erythema, mucous membranes moist. Neck: No lymphadenopathy or JVD CV: RRR, Normal S1 and S2. No murmurs, gallops, or rubs. Resp: CTAB with full breath sounds. No wheezes, crackles, or rhonchi. No dullness to percussion. Abdomen: Bowel sounds present. Obese abdomen, soft, NT, ND. Extremities: No swelling or edema. Psych: Normal mood and affect. Assessment/Plan: #. Hypertensive urgency Previously non-compliant with medications Continue amlodipine, bisoprolol, losartan increased yesterday to 50mg daily, readding chlorthalidone 12.5 (unclear why it was DCd), DC prn hydralazine. #. Inability to care for self. -PFS consulted for potential placement. -OT recommending rehab after DC, PT rec pending #. GERD Continue omeprazole #. Hyperlipidemia Continue atorvastatin lipids WNL, LFTs WNL #. Paroxysmal atrial fibrillation Continue bisoprolol Continue rivaroxaban #. History of hemorrhagic CVA in 2010 PT and OT ordered #. Anxiety and depression Continue citalopram DVT prophylaxis: Continue xarelto Disposition: Pending BP control, PT/OT eval, placement. VS,Fishbone, I+O VS, Fishbone, I+O Laboratory Tests 03/11/21 14:20 03/11/21 17:53 03/12/21 05:35 Vital Signs Date Time Temp Pulse Resp B/P (MAP) Pulse Ox O2 Delivery O2 Flow Rate FiO2 03/12/21 09:15 177/85 03/12/21 09:15 71 03/12/21 05:06 98.3 18 96 Room Air I&O- Last 24 Hours up to 6 AM 03/12/21 06:00 Intake Total 300 ml Output Total 0 ml Balance 300 ml GME ATTESTATION GME ATTESTATION My faculty preceptor for this patient encounter was physically present during the encounter and was fully available. All aspects of the patient interview, examination, medical decision making process, and medical care plan development were reviewed and approved by the faculty preceptor. The faculty preceptor is aware and concurs with the plan as stated in the body of this note and will a ttest to such by his/her cosignature. ATTENDING NOTE I personally examined Ms. Cheung, discussed the events leading up to her presentation to the hospital with her and the resident physician and I fully agree with the above noted findings, assessment and plan as noted by [facility]. Ms. Cheung has had a steep decline in her mobility and is seeking either placement if appropriate or home services if deemed appropriate by PT/OT. MOUSTAPHA CALDWELL DO Mar 12, 2021 11:07 URIEL ESTEBAN MD Mar 13, 2021 06:42
[2021-03-12] MEDS: VITAMIN D (CHOLECALCIFEROL) 400 INTERNATIONAL UNITS TAB PO SCH (12:56)
[2021-03-12] MEDS: CHLORTHALIDONE 12.5MG PER 1/2 TABLET PO SCH (13:44)
[2021-03-12 14:00] VITALS: BP 166/82
[2021-03-12] MEDS: RIVAROXABAN 15 MG TAB (XARELTO) PO SCH (17:49)
[2021-03-12 22:00] VITALS: BP 173/88
[2021-03-13] MEDS: ACETAMINOPHEN 650MG ER TAB (TYLENOL ARTHRITIS) PO SCH ×3 (05:35→22:00)
[2021-03-13 05:54] VITALS: BP 180/90
[2021-03-13] MEDS: ATORVASTATIN 20 MG TAB PO SCH (09:14)
[2021-03-13] MEDS: VITAMIN D (CHOLECALCIFEROL) 400 INTERNATIONAL UNITS TAB PO SCH (09:14)
[2021-03-13] MEDS: PANTOPRAZOLE 40MG TAB (PROTONIX) PO SCH (09:14)
[2021-03-13] MEDS: bisoproloL fumarate 5 MG TAB PO SCH (09:15)
[2021-03-13] MEDS: LOSARTAN 50MG TABLET PO SCH ×2 (09:16→20:03)
[2021-03-13] MEDS: CHLORTHALIDONE 12.5MG PER 1/2 TABLET PO SCH (09:16)
[2021-03-13] MEDS: LORATADINE 10 MG TAB PO SCH (09:17)
[2021-03-13] MEDS: DICLOFENAC EPOLAMINE 1.3 % PATCH TOP SCH ×2 (09:17→20:02)
[2021-03-13] MEDS: NYSTATIN 100,000 UNITS/GM TOPICAL PWD 15 GM TOP SCH ×2 (09:17→20:03)
[2021-03-13] MEDS: CitaloPRAM (CeleXA) 20 MG TAB PO SCH (09:17)
--- NOTE | 2021-03-13 11:40 | IPNPDOC ---
Text Note Date of Service The patient was seen on 03/13/21. NOTE Subjective: Patient is a 71-year-old female admitted overnight for hypertensive urgency after stopping all of her medications 2 months ago and getting her foot stuck in the door and falling to the ground unable to get up. Patient seen and examined at bedside. She is more tired today. States she does not recall working with physical therapy yesterday but remains interested in doing so. She denies any fever, chills, chest pain, difficulty breathing, lightheadedness, dizziness, abdominal pain, nausea, vomiting. Objective: General: Mildly tired appearing female who appears stated age in NAD HEENT: NC, AT. EOMI, no scleral icterus. No pharyngeal erythema, mucous membranes moist. Neck: No lymphadenopathy or JVD CV: RRR, Normal S1 and S2. No murmurs, gallops, or rubs. Resp: CTAB with full breath sounds. No wheezes, crackles, or rhonchi. No dullness to percussion. Abdomen: Bowel sounds present. Obese abdomen, soft, NT, ND. Extremities: No swelling or edema. Psych: Normal mood and affect. Assessment/Plan: #. Hypertensive urgency Previously non-compliant with medications Continue amlodipine, bisoprolol, chlorthalidone, losartan increased to 50 BID, if she becomes symptomatic may scale this back #. Hypoxia -Patient desaturated to the mid-80s while working with PT, will prescribe albuterol, give x1 dose IV lasix -It is unclear whether she was previously on oxygen at home and this is chronic for her. #. Inability to care for self. -PFS consulted for potential placement. -OT recommending rehab after DC, PT rec pending #. GERD Continue omeprazole #. Hyperlipidemia Continue atorvastatin lipids WNL, LFTs WNL #. Paroxysmal atrial fibrillation Continue bisoprolol Continue rivaroxaban #. History of hemorrhagic CVA in 2010 PT and OT ordered #. Anxiety and depression Continue citalopram DVT prophylaxis: Continue xarelto Disposition: PFS placement, PT/OT evaluation VS,Fishbone, I+O VS, Fishbone, I+O Vital Signs Date Time Temp Pulse Resp B/P (MAP) Pulse Ox O2 Delivery O2 Flow Rate FiO2 03/13/21 09:16 148/74 03/13/21 09:15 63 03/13/21 06:00 97.5 20 90 Room Air I&O- Last 24 Hours up to 6 AM 03/13/21 05:59 Intake Total 2140 ml Balance 2140 ml GME ATTESTATION GME ATTESTATION My faculty preceptor for this patient encounter was physically present during the encounter and was fully available. All aspects of the patient interview, examination, medical decision making process, and medical care plan development were reviewed and approved by the faculty preceptor. The faculty preceptor is aware and concurs with the plan as stated in the body of this note and will attest to such by his/her cosignature. ATTENDING NOTE I personally examined Ms. Cheung and discussed her findings with the resident team and I agree with the above detailed assessment and plan. MOUSTAPHA CALDWELL DO Mar 13, 2021 11:40 URIEL ESTEBAN MD Mar 13, 2021 16:03
[2021-03-13] MEDS ORDERED: ALBUTEROL 90 MCG/ACT 8GM HFA INHALER INH PRN (12:10)
[2021-03-13] MEDS ORDERED: FUROSEMIDE 40MG/4ML VIAL (J1940) IV ONE (12:10)
[2021-03-13 14:00] VITALS: BP 168/78
[2021-03-13] MEDS: RIVAROXABAN 15 MG TAB (XARELTO) PO SCH (18:00)
[2021-03-13 22:00] VITALS: BP 118/70
[2021-03-14 06:00] VITALS: BP 190/89
[2021-03-14] MEDS: **hydrALAZINE** 10 MG TAB PO SCH ×3 (06:00→22:02)
[2021-03-14] MEDS: ACETAMINOPHEN 650MG ER TAB (TYLENOL ARTHRITIS) PO SCH ×3 (06:10→22:03)
[2021-03-14 08:11] LABS: HEMATOCRIT 43.2 % (36.0-47.0); HEMOGLOBIN 13.8 g/dl (12.0-15.5); MEAN CORPUSCULAR HEMOGLOBIN 27.5 pg (27.0-33.0); MEAN CORPUSCULAR HGB CONC 31.9 g/dl (32.0-36.5); MEAN CORPUSCULAR VOLUME 86.1 fl (80.0-96.0); PLATELET COUNT, AUTOMATED 328 10^3/uL (150-450); RED BLOOD COUNT 5.02 10^6/uL (4.00-5.40); WHITE BLOOD COUNT 8.3 10^3/uL (4.0-10.0)
[2021-03-14 08:40] LABS: CALCIUM LEVEL 9.2 MG/DL (8.8-10.2); CREATININE FOR GFR 1.29 MG/DL (0.55-1.30); GLOMERULAR FILTRATION RATE 43.1 (>39); POTASSIUM SERUM 3.5 MEQ/L (3.5-5.1)
[2021-03-14] MEDS ORDERED: CHLORTHALIDONE 25 MG TAB PO SCH (09:00)
[2021-03-14] MEDS: DICLOFENAC EPOLAMINE 1.3 % PATCH TOP SCH ×2 (09:26→22:03)
[2021-03-14] MEDS: bisoproloL fumarate 5 MG TAB PO SCH (09:28)
[2021-03-14] MEDS: PANTOPRAZOLE 40MG TAB (PROTONIX) PO SCH (09:29)
[2021-03-14] MEDS: CitaloPRAM (CeleXA) 20 MG TAB PO SCH (09:29)
[2021-03-14] MEDS: VITAMIN D (CHOLECALCIFEROL) 400 INTERNATIONAL UNITS TAB PO SCH (09:29)
[2021-03-14] MEDS: ATORVASTATIN 20 MG TAB PO SCH (09:29)
[2021-03-14] MEDS: LOSARTAN 50MG TABLET PO SCH ×2 (09:30→22:03)
[2021-03-14] MEDS: NYSTATIN 100,000 UNITS/GM TOPICAL PWD 15 GM TOP SCH ×2 (09:31→22:04)
[2021-03-14] MEDS: LORATADINE 10 MG TAB PO SCH (09:31)
--- NOTE | 2021-03-14 10:51 | IPNPDOC ---
Text Note Date of Service The patient was seen on 03/14/21. NOTE Subjective: Patient is a 71-year-old female admitted for hypertensive urgency after stopping all of her medications 2 months ago and getting her foot stuck in the door and falling to the ground unable to get up. Patient seen and examined at bedside. Denies any complaints overnight. She denies any fever, chills, chest pain, difficulty breathing, lightheadedness, dizziness, abdominal pain, nausea, vomiting. Objective: General: Mildly tired appearing female who appears stated age in NAD HEENT: NC, AT. EOMI, no scleral icterus. No pharyngeal erythema, mucous membranes moist. Neck: No lymphadenopathy or JVD CV: RRR, Normal S1 and S2. No murmurs, gallops, or rubs. Resp: CTAB with full breath sounds. No wheezes, crackles, or rhonchi. No dullness to percussion. Abdomen: Bowel sounds present. Obese abdomen, soft, NT, ND. Extremities: No swelling or edema. Psych: Normal mood and affect. Assessment/Plan: #. Resistant hypertension Previously non-compliant with medications S/p lasix yesterday, Cr mildly elevated, no SHANTAL, DCing chlorthalidone in light of same -Continue Amlodipine 10 mg, bisoprolol 5 mg, losartan 50 mg BID, and starting hydralazine 12.5 mg TID, may titrate up to 20mg as BP allows. If Cr returns to baseline, may consider re-adding chlorthalidone. #. Hypoxia -Resolved, she was give x1 dose IV lasix yesterday #. AZALIA -AZALIA protocol -CPAP at 10cm at night, patient will need outpatient retesting as her last evaluation noted she needed an oxygen washout with her CPAP due to nighttime desaturations. #. Inability to care for self. -PFS consulted for potential placement. -OT recommending rehab after DC, PT rec pending #. GERD Continue omeprazole #. Hyperlipidemia Continue atorvastatin lipids WNL, LFTs WNL #. Paroxysmal atrial fibrillation Continue bisoprolol Continue rivaroxaban #. History of hemorrhagic CVA in 2010 PT and OT ordered #. Anxiety and depression Continue citalopram DVT prophylaxis: Continue xarelto Disposition: ALC status, will continue to titrate BP meds VS,Fishbone, I+O VS, Fishbone, I+O Laboratory Tests 03/14/21 07:43 Vital Signs Date Time Temp Pulse Resp B/P (MAP) Pulse Ox O2 Delivery O2 Flow Rate FiO2 03/14/21 09:28 54 170/90 03/14/21 06:00 97.7 20 97 Room Air 03/14/21 01:18 3.0 95 I&O- Last 24 Hours up to 6 AM 03/14/21 06:00 Intake Total 1090 ml Output Total 800 ml Balance 290 ml GME ATTESTATION GME ATTESTATION My faculty preceptor for this patient encounter was physically present during the encounter and was fully available. All aspects of the patient interview, examination, medical decision making process, and medical care plan development were reviewed and approved by the faculty preceptor. The faculty preceptor is aware and concurs with the plan as stated in the body of this note and will attest to such by his/her cosignature. ATTENDING NOTE I personally examined Ms. Cheung and discussed her findings with the resident team and I agree with the above detailed assessment and plan. MOUSTAPHA CALDWELL DO Mar 14, 2021 10:51 URIEL ESTEBAN MD Mar 15, 2021 11:40
[2021-03-14 14:00] VITALS: BP 152/80
[2021-03-14] MEDS: RIVAROXABAN 15 MG TAB (XARELTO) PO SCH (17:56)
[2021-03-14 20:50] VITALS: BP 130/86
[2021-03-15] MEDS: ACETAMINOPHEN 650MG ER TAB (TYLENOL ARTHRITIS) PO SCH ×3 (05:16→21:28)
[2021-03-15] MEDS: **hydrALAZINE** 10 MG TAB PO SCH ×3 (05:17→21:30)
[2021-03-15 06:00] VITALS: BP 162/80
[2021-03-15 06:15] LABS: HEMATOCRIT 42.9 % (36.0-47.0); HEMOGLOBIN 13.3 g/dl (12.0-15.5); MEAN CORPUSCULAR HEMOGLOBIN 27.3 pg (27.0-33.0); MEAN CORPUSCULAR VOLUME 88.1 fl (80.0-96.0); PLATELET COUNT, AUTOMATED 326 10^3/uL (150-450); RED BLOOD COUNT 4.87 10^6/uL (4.00-5.40); WHITE BLOOD COUNT 7.6 10^3/uL (4.0-10.0)
[2021-03-15 06:39] LABS: CALCIUM LEVEL 8.7 MG/DL (8.8-10.2); CREATININE FOR GFR 1.12 MG/DL (0.55-1.30); GLOMERULAR FILTRATION RATE 50.8 (>39); POTASSIUM SERUM 3.5 MEQ/L (3.5-5.1)
[2021-03-15] MEDS ORDERED: DOCUSATE SODIUM 100MG CAPSULE PO PRN (08:50)
[2021-03-15] MEDS: LOSARTAN 50MG TABLET PO SCH ×2 (08:53→21:30)
[2021-03-15] MEDS: CitaloPRAM (CeleXA) 20 MG TAB PO SCH (08:53)
[2021-03-15] MEDS: ATORVASTATIN 20 MG TAB PO SCH (08:53)
[2021-03-15] MEDS: LORATADINE 10 MG TAB PO SCH (08:53)
[2021-03-15] MEDS: VITAMIN D (CHOLECALCIFEROL) 400 INTERNATIONAL UNITS TAB PO SCH (08:54)
[2021-03-15] MEDS: PANTOPRAZOLE 40MG TAB (PROTONIX) PO SCH (08:54)
[2021-03-15] MEDS: bisoproloL fumarate 5 MG TAB PO SCH (08:55)
[2021-03-15] MEDS: DICLOFENAC EPOLAMINE 1.3 % PATCH TOP SCH ×2 (08:55→21:28)
[2021-03-15] MEDS: NYSTATIN OINTMENT 15 GM TOP SCH ×2 (12:37→21:28)
[2021-03-15] MEDS: RIVAROXABAN 15 MG TAB (XARELTO) PO SCH (18:03)
[2021-03-16 04:52] VITALS: BP 144/88
[2021-03-16] MEDS: ACETAMINOPHEN 650MG ER TAB (TYLENOL ARTHRITIS) PO SCH ×3 (05:40→21:06)
[2021-03-16] MEDS: **hydrALAZINE** 10 MG TAB PO SCH ×3 (05:41→21:06)
[2021-03-16 06:47] LABS: HEMATOCRIT 43.4 % (36.0-47.0); HEMOGLOBIN 13.5 g/dl (12.0-15.5); MEAN CORPUSCULAR HEMOGLOBIN 27.6 pg (27.0-33.0); MEAN CORPUSCULAR HGB CONC 31.1 g/dl (32.0-36.5); MEAN CORPUSCULAR VOLUME 88.6 fl (80.0-96.0); PLATELET COUNT, AUTOMATED 302 10^3/uL (150-450); WHITE BLOOD COUNT 7.7 10^3/uL (4.0-10.0)
[2021-03-16 07:05] LABS: CREATININE FOR GFR 1.11 MG/DL (0.55-1.30); GLOMERULAR FILTRATION RATE 51.3 (>39); POTASSIUM SERUM 3.9 MEQ/L (3.5-5.1)
[2021-03-16] MEDS: ATORVASTATIN 20 MG TAB PO SCH (09:25)
[2021-03-16] MEDS: bisoproloL fumarate 5 MG TAB PO SCH (09:26)
[2021-03-16] MEDS: PANTOPRAZOLE 40MG TAB (PROTONIX) PO SCH (09:26)
[2021-03-16] MEDS: VITAMIN D (CHOLECALCIFEROL) 400 INTERNATIONAL UNITS TAB PO SCH (09:26)
[2021-03-16] MEDS: LORATADINE 10 MG TAB PO SCH (09:27)
[2021-03-16] MEDS: LOSARTAN 50MG TABLET PO SCH ×2 (09:27→21:06)
[2021-03-16] MEDS: CitaloPRAM (CeleXA) 20 MG TAB PO SCH (09:27)
[2021-03-16] MEDS: DICLOFENAC EPOLAMINE 1.3 % PATCH TOP SCH ×2 (09:27→21:06)
[2021-03-16] MEDS: NYSTATIN OINTMENT 15 GM TOP SCH ×2 (09:28→21:07)
[2021-03-16] MEDS: RIVAROXABAN 15 MG TAB (XARELTO) PO SCH (17:54)
[2021-03-17] MEDS: ACETAMINOPHEN 650MG ER TAB (TYLENOL ARTHRITIS) PO SCH ×3 (05:26→20:49)
[2021-03-17] MEDS: **hydrALAZINE** 10 MG TAB PO SCH ×3 (05:26→20:50)
[2021-03-17 05:48] LABS: HEMOGLOBIN 12.6 g/dl (12.0-15.5); MEAN CORPUSCULAR HEMOGLOBIN 26.9 pg (27.0-33.0); MEAN CORPUSCULAR HGB CONC 30.7 g/dl (32.0-36.5); MEAN CORPUSCULAR VOLUME 87.6 fl (80.0-96.0); PLATELET COUNT, AUTOMATED 282 10^3/uL (150-450); RED BLOOD COUNT 4.68 10^6/uL (4.00-5.40); WHITE BLOOD COUNT 6.4 10^3/uL (4.0-10.0)
[2021-03-17 06:00] VITALS: BP 160/75
[2021-03-17 06:13] LABS: CREATININE FOR GFR 1.06 MG/DL (0.55-1.30); GLOMERULAR FILTRATION RATE 54.1 (>39); POTASSIUM SERUM 4.2 MEQ/L (3.5-5.1)
[2021-03-17] MEDS: LOSARTAN 50MG TABLET PO SCH ×2 (09:06→20:50)
[2021-03-17] MEDS: VITAMIN D (CHOLECALCIFEROL) 400 INTERNATIONAL UNITS TAB PO SCH (09:06)
[2021-03-17] MEDS: CitaloPRAM (CeleXA) 20 MG TAB PO SCH (09:06)
[2021-03-17] MEDS: PANTOPRAZOLE 40MG TAB (PROTONIX) PO SCH (09:07)
[2021-03-17] MEDS: ATORVASTATIN 20 MG TAB PO SCH (09:07)
[2021-03-17] MEDS: bisoproloL fumarate 5 MG TAB PO SCH (09:07)
[2021-03-17] MEDS: DICLOFENAC EPOLAMINE 1.3 % PATCH TOP SCH ×2 (09:08→20:50)
[2021-03-17] MEDS: LORATADINE 10 MG TAB PO SCH (09:09)
[2021-03-17] MEDS: NYSTATIN OINTMENT 15 GM TOP SCH ×2 (14:26→20:50)
[2021-03-17] MEDS: RIVAROXABAN 15 MG TAB (XARELTO) PO SCH (17:36)
[2021-03-18 06:00] VITALS: BP 182/90
[2021-03-18] MEDS: ACETAMINOPHEN 650MG ER TAB (TYLENOL ARTHRITIS) PO SCH ×3 (06:10→20:20)
[2021-03-18] MEDS: **hydrALAZINE** 10 MG TAB PO SCH ×3 (06:11→20:19)
[2021-03-18] MEDS: DICLOFENAC EPOLAMINE 1.3 % PATCH TOP SCH ×2 (08:34→20:20)
[2021-03-18] MEDS: bisoproloL fumarate 5 MG TAB PO SCH (08:36)
[2021-03-18] MEDS: VITAMIN D (CHOLECALCIFEROL) 400 INTERNATIONAL UNITS TAB PO SCH (08:37)
[2021-03-18] MEDS: LOSARTAN 50MG TABLET PO SCH ×2 (08:37→20:19)
[2021-03-18] MEDS: ATORVASTATIN 20 MG TAB PO SCH (08:37)
[2021-03-18] MEDS: NYSTATIN OINTMENT 15 GM TOP SCH ×2 (08:37→20:20)
[2021-03-18] MEDS: PANTOPRAZOLE 40MG TAB (PROTONIX) PO SCH (08:37)
[2021-03-18] MEDS: CitaloPRAM (CeleXA) 20 MG TAB PO SCH (08:38)
[2021-03-18] MEDS: LORATADINE 10 MG TAB PO SCH (08:38)
[2021-03-18 09:00] VITALS: BP 142/70
[2021-03-18 09:12] LABS: HEMATOCRIT 46.3 % (36.0-47.0); HEMOGLOBIN 14.5 g/dl (12.0-15.5); MEAN CORPUSCULAR HEMOGLOBIN 27.4 pg (27.0-33.0); MEAN CORPUSCULAR HGB CONC 31.3 g/dl (32.0-36.5); MEAN CORPUSCULAR VOLUME 87.4 fl (80.0-96.0); PLATELET COUNT, AUTOMATED 350 10^3/uL (150-450); WHITE BLOOD COUNT 8.1 10^3/uL (4.0-10.0)
[2021-03-18 10:00] LABS: CREATININE FOR GFR 1.04 MG/DL (0.55-1.30); GLOMERULAR FILTRATION RATE 55.3 (>39); POTASSIUM SERUM 4.4 MEQ/L (3.5-5.1)
[2021-03-18] MEDS: RIVAROXABAN 15 MG TAB (XARELTO) PO SCH (17:07)
[2021-03-19] MEDS: ACETAMINOPHEN 650MG ER TAB (TYLENOL ARTHRITIS) PO SCH ×3 (05:13→20:45)
[2021-03-19] MEDS: **hydrALAZINE** 10 MG TAB PO SCH ×3 (05:13→20:45)
[2021-03-19 06:00] VITALS: BP 132/78
[2021-03-19 06:28] LABS: HEMOGLOBIN 13.1 g/dl (12.0-15.5); MEAN CORPUSCULAR HEMOGLOBIN 27.2 pg (27.0-33.0); MEAN CORPUSCULAR HGB CONC 31.2 g/dl (32.0-36.5); MEAN CORPUSCULAR VOLUME 87.3 fl (80.0-96.0); PLATELET COUNT, AUTOMATED 282 10^3/uL (150-450); RED BLOOD COUNT 4.81 10^6/uL (4.00-5.40); WHITE BLOOD COUNT 6.2 10^3/uL (4.0-10.0)
[2021-03-19 06:53] LABS: CALCIUM LEVEL 8.8 MG/DL (8.8-10.2); CREATININE FOR GFR 1.01 MG/DL (0.55-1.30); GLOMERULAR FILTRATION RATE 57.2 (>39); POTASSIUM SERUM 3.9 MEQ/L (3.5-5.1)
[2021-03-19] MEDS: LOSARTAN 50MG TABLET PO SCH ×2 (07:59→20:45)
[2021-03-19] MEDS: PANTOPRAZOLE 40MG TAB (PROTONIX) PO SCH (07:59)
[2021-03-19] MEDS: LORATADINE 10 MG TAB PO SCH (07:59)
[2021-03-19] MEDS: ATORVASTATIN 20 MG TAB PO SCH (07:59)
[2021-03-19] MEDS: DICLOFENAC EPOLAMINE 1.3 % PATCH TOP SCH ×2 (08:00→20:44)
[2021-03-19] MEDS: bisoproloL fumarate 5 MG TAB PO SCH (08:00)
[2021-03-19] MEDS: VITAMIN D (CHOLECALCIFEROL) 400 INTERNATIONAL UNITS TAB PO SCH (08:00)
[2021-03-19] MEDS: CitaloPRAM (CeleXA) 20 MG TAB PO SCH (08:00)
[2021-03-19] MEDS: NYSTATIN OINTMENT 15 GM TOP SCH ×2 (08:01→20:47)
[2021-03-19] MEDS: RIVAROXABAN 15 MG TAB (XARELTO) PO SCH (17:12)
[2021-03-19 22:00] VITALS: BP 122/62
[2021-03-20] MEDS: **hydrALAZINE** 10 MG TAB PO SCH ×3 (05:53→21:53)
[2021-03-20 06:00] VITALS: BP 110/72
[2021-03-20] MEDS: ACETAMINOPHEN 650MG ER TAB (TYLENOL ARTHRITIS) PO SCH ×3 (06:01→21:53)
[2021-03-20 06:14] LABS: HEMATOCRIT 41.3 % (36.0-47.0); HEMOGLOBIN 12.8 g/dl (12.0-15.5); MEAN CORPUSCULAR HEMOGLOBIN 26.9 pg (27.0-33.0); MEAN CORPUSCULAR VOLUME 86.9 fl (80.0-96.0); PLATELET COUNT, AUTOMATED 306 10^3/uL (150-450); RED BLOOD COUNT 4.75 10^6/uL (4.00-5.40); WHITE BLOOD COUNT 6.9 10^3/uL (4.0-10.0)
[2021-03-20 06:41] LABS: BLOOD UREA NITROGEN 19 MG/DL (7-18); CALCIUM LEVEL 8.9 MG/DL (8.8-10.2); CARBON DIOXIDE LEVEL 28 MEQ/L (21-32); CHLORIDE LEVEL 106 MEQ/L (98-107); CREATININE FOR GFR 0.96 MG/DL (0.55-1.30); GLOMERULAR FILTRATION RATE > 60.0 (>39); GLUCOSE, FASTING 88 MG/DL (70-100); POTASSIUM SERUM 4.1 MEQ/L (3.5-5.1); SODIUM LEVEL 141 MEQ/L (136-145)
[2021-03-20 09:00] VITALS: BP 144/78
[2021-03-20] MEDS: DICLOFENAC EPOLAMINE 1.3 % PATCH TOP SCH ×2 (09:35→21:52)
[2021-03-20] MEDS: VITAMIN D (CHOLECALCIFEROL) 400 INTERNATIONAL UNITS TAB PO SCH (09:35)
[2021-03-20] MEDS: PANTOPRAZOLE 40MG TAB (PROTONIX) PO SCH (09:35)
[2021-03-20] MEDS: CitaloPRAM (CeleXA) 20 MG TAB PO SCH (09:35)
[2021-03-20] MEDS: LORATADINE 10 MG TAB PO SCH (09:35)
[2021-03-20] MEDS: NYSTATIN OINTMENT 15 GM TOP SCH ×2 (09:36→21:53)
[2021-03-20] MEDS: bisoproloL fumarate 5 MG TAB PO SCH (10:33)
[2021-03-20] MEDS: ATORVASTATIN 20 MG TAB PO SCH (10:35)
[2021-03-20] MEDS: LOSARTAN 50MG TABLET PO SCH ×2 (10:36→21:52)
[2021-03-20 14:00] VITALS: BP 120/68
[2021-03-20] MEDS: RIVAROXABAN 15 MG TAB (XARELTO) PO SCH (18:35)
[2021-03-21] MEDS: **hydrALAZINE** 10 MG TAB PO SCH ×3 (06:00→22:00)
[2021-03-21 06:06] VITALS: BP 142/96
[2021-03-21] MEDS: ACETAMINOPHEN 650MG ER TAB (TYLENOL ARTHRITIS) PO SCH ×3 (06:06→23:18)
[2021-03-21 07:14] LABS: HEMATOCRIT 41.5 % (36.0-47.0); MEAN CORPUSCULAR HEMOGLOBIN 27.1 pg (27.0-33.0); MEAN CORPUSCULAR HGB CONC 31.3 g/dl (32.0-36.5); MEAN CORPUSCULAR VOLUME 86.6 fl (80.0-96.0); PLATELET COUNT, AUTOMATED 307 10^3/uL (150-450); RED BLOOD COUNT 4.79 10^6/uL (4.00-5.40); WHITE BLOOD COUNT 7.6 10^3/uL (4.0-10.0)
[2021-03-21 07:33] LABS: CREATININE FOR GFR 1.04 MG/DL (0.55-1.30); GLOMERULAR FILTRATION RATE 55.3 (>39); POTASSIUM SERUM 4.3 MEQ/L (3.5-5.1)
[2021-03-21 08:35] VITALS: BP 170/78
[2021-03-21] MEDS: bisoproloL fumarate 5 MG TAB PO SCH (09:10)
[2021-03-21] MEDS: DICLOFENAC EPOLAMINE 1.3 % PATCH TOP SCH ×2 (09:11→23:17)
[2021-03-21] MEDS: LOSARTAN 50MG TABLET PO SCH ×2 (09:11→23:17)
[2021-03-21] MEDS: LORATADINE 10 MG TAB PO SCH (09:23)
[2021-03-21] MEDS: VITAMIN D (CHOLECALCIFEROL) 400 INTERNATIONAL UNITS TAB PO SCH (09:23)
[2021-03-21] MEDS: ATORVASTATIN 20 MG TAB PO SCH (09:23)
[2021-03-21] MEDS: CitaloPRAM (CeleXA) 20 MG TAB PO SCH (09:23)
[2021-03-21] MEDS: PANTOPRAZOLE 40MG TAB (PROTONIX) PO SCH (09:23)
[2021-03-21] MEDS: NYSTATIN OINTMENT 15 GM TOP SCH ×2 (09:24→23:18)
[2021-03-21 14:00] VITALS: BP 138/80
[2021-03-21] MEDS: RIVAROXABAN 15 MG TAB (XARELTO) PO SCH (18:15)
[2021-03-22 06:00] VITALS: BP 175/81
[2021-03-22] MEDS: **hydrALAZINE** 10 MG TAB PO SCH ×2 (06:09→14:00)
[2021-03-22] MEDS: ACETAMINOPHEN 650MG ER TAB (TYLENOL ARTHRITIS) PO SCH ×3 (06:10→22:37)
[2021-03-22] MEDS: LOSARTAN 50MG TABLET PO SCH ×2 (09:06→22:37)
[2021-03-22] MEDS: LORATADINE 10 MG TAB PO SCH (09:08)
[2021-03-22] MEDS: bisoproloL fumarate 5 MG TAB PO SCH (09:08)
[2021-03-22] MEDS: ATORVASTATIN 20 MG TAB PO SCH (09:08)
[2021-03-22] MEDS: CitaloPRAM (CeleXA) 20 MG TAB PO SCH (09:08)
[2021-03-22] MEDS: PANTOPRAZOLE 40MG TAB (PROTONIX) PO SCH (09:09)
[2021-03-22] MEDS: DICLOFENAC EPOLAMINE 1.3 % PATCH TOP SCH ×2 (09:09→22:36)
[2021-03-22] MEDS: VITAMIN D (CHOLECALCIFEROL) 400 INTERNATIONAL UNITS TAB PO SCH (09:09)
[2021-03-22] MEDS: NYSTATIN OINTMENT 15 GM TOP SCH ×2 (09:09→22:38)
[2021-03-22] MEDS: RIVAROXABAN 15 MG TAB (XARELTO) PO SCH (17:59)
[2021-03-23] MEDS: ACETAMINOPHEN 650MG ER TAB (TYLENOL ARTHRITIS) PO SCH (05:27)
[2021-03-23 05:39] VITALS: BP 173/62
[2021-03-23] MEDS: DICLOFENAC EPOLAMINE 1.3 % PATCH TOP SCH (09:00)
[2021-03-23] MEDS: VITAMIN D (CHOLECALCIFEROL) 400 INTERNATIONAL UNITS TAB PO SCH (09:38)
[2021-03-23] MEDS: PANTOPRAZOLE 40MG TAB (PROTONIX) PO SCH (09:38)
[2021-03-23] MEDS: CitaloPRAM (CeleXA) 20 MG TAB PO SCH (09:39)
[2021-03-23] MEDS: LORATADINE 10 MG TAB PO SCH (09:39)
[2021-03-23] MEDS: LOSARTAN 50MG TABLET PO SCH (09:39)
[2021-03-23] MEDS: bisoproloL fumarate 5 MG TAB PO SCH (09:39)
[2021-03-23] MEDS: ATORVASTATIN 20 MG TAB PO SCH (09:39)
[2021-03-23 09:40] VITALS: BP 173/62
[2021-03-23] MEDS: NYSTATIN OINTMENT 15 GM TOP SCH (09:40)
--- NOTE | 2021-03-23 10:40 | DS.PDOC ---
Discharge Summary General Date of Admission Mar 13, 2021 at 07:57 Date of Discharge 03/23/21 Discharge Summary PROCEDURES PERFORMED DURING STAY: [None]. DISCHARGE DIAGNOSES: Hypertensive urgency Debility and gait instability SECONDARY DIAGNOSIS: Degenerative disc disease of LS spine Osteoarthritis GERD Seasonal allergies Hemorrhoids Morbid Obesity Hemorrhagic CVA in September 2010 with left eye vision change and left-sided weakness Hyperlipidemia Vitamin D deficiency Paroxysmal atrial fibrillation AZALIA Obesity Hypoventilation Slow-growing tumor in brain (6 mm meningioma) Cataracts CKD stage III COMPLICATIONS/CHIEF COMPLAINT: Hypertensive Urgency. HOSPITAL COURSE: This is a 71-year-old female was brought in to the ED getting her foot stuck in the door and falling to the ground unable to get up. She was found to be hypertensive urgency after stopping all of her medications 2 months ago and was admitted for this. She was found to be debilitated with giat instability and PT had reccomended Subacute rehab. However her insurance denied this. She was made ALC. Patient continued to work with PT in hospital and has now been safe to be discharged home with services. Hypertension presented with hypertensive urgency which has now resolved. non-compliant with medications Continue Amlodipine 10 mg, bisoprolol 5 mg, losartan 50 mg BID AZALIA/ Obesity hypoventilation refuses to wear CPAP Patient will need outpatient retesting as her last evaluation noted she needed an oxygen bleed in with her CPAP due to nighttime desaturations. Morbid obesity BMI of 49.8 complicating care. GERD Continue omeprazole Hyperlipidemia Continue atorvastatin Paroxysmal atrial fibrillation Continue bisoprolol Continue rivaroxaban History of hemorrhagic CVA in 2010 with residual left sided weakness and visual impairment. Anxiety and depression Continue citalopram DISCHARGE MEDICATIONS: Please see below. ALLERGIES: Please see below. PHYSICAL EXAMINATION ON DISCHARGE: VITAL SIGNS: Please see below. General: awake alert, NAD HEENT: NC, AT. EOMI, no scleral icterus. No pharyngeal erythema, mucous membranes moist. Neck: No lymphadenopathy or JVD CV: RRR, Normal S1 and S2. No murmurs, gallops, or rubs. Resp: CTAB with full breath sounds. No wheezes, crackles, or rhonchi. No dullness to percussion. Abdomen: Bowel sounds present. Obese abdomen, soft, NT, ND. Extremities: No swelling or edema. Psych: Normal mood and affect. LABORATORY DATA: Please see below. ACTIVITY: [As tolerated]. DIET: 2 gm sodium DISCHARGE PLAN: Home with services DISCHARGE INSTRUCTIONS: PMD in 2 weeks DISCHARGE CONDITION: [Stable]. TIME SPENT ON DISCHARGE: 35 minutes. Vital Signs/I&Os Vital Signs Date Time Temp Pulse Resp B/P (MAP) Pulse Ox O2 Delivery O2 Flow Rate FiO2 03/23/21 10:34 2.0 03/23/21 09:40 88 173/62 03/23/21 05:39 96.7 20 90 Room Air 03/18/21 09:00 95 I&O- Last 24 Hours up to 6 AM 03/23/21 05:59 Intake Total 1320 ml Output Total 150 ml Balance 1170 ml Discharge Medications Scheduled Amlodipine Besylate (Amlodipine Besylate) 10 Mg Tablet, 10 MG PO DAILY, (Reported) Atorvastatin Calcium (Atorvastatin Calcium) 40 Mg Tab, 40 MG PO DAILY, (R eported) Bisoprolol Fumarate (Bisoprolol Fumarate) 5 Mg Tablet, 5 MG PO DAILY, (Reported) Calcitriol (Rocaltrol) 0.25 Mcg Capsule, 0.25 MCG PO QWEEK, (Reported) SUNDAYS Chlorthalidone (Chlorthalidone) 25 Mg Tablet, 12.5 MG PO DAILY, (Reported) Cholecalciferol (Vitamin D3) (Vitamin D3) 25 Mcg Capsule, 25 MCG PO DAILY, (Reported) Citalopram Hydrobromide (Citalopram HBr) 20 Mg Tablet, 20 MG PO DAILY, (Reported) Loratadine (Loratadine) 10 Mg Tablet, 10 MG PO DAILY, (Reported) Losartan Potassium (Losartan Potassium) 25 Mg Tablet, 25 MG PO DAILY, (Reported) Oxybutynin Chloride (Oxybutynin Chloride ER) 15 Mg Tab.er.24, 15 MG PO DAILY, (Reported) Pantoprazole Sodium (Pantoprazole Sodium) 40 Mg Tab, 40 MG PO DAILY, (Reported) Rivaroxaban (Xarelto) 15 Mg Tablet, 15 MG PO DAILY, (Reported) Allergies Coded Allergies: codeine (Verified Allergy, Intermediate, HIVES, 07/30/18) ENVIRONMENTAL (Unverified Allergy, Unknown, 06/04/09) Amaris Newsome MD Mar 23, 2021 10:40
[2021-03-23] MEDS ORDERED: COZA50TA PO (10:45)
== END 2021-03-23 13:55 | disposition home health service (06) | DRG 305 ==
LOC: M ED 11:53 → EDBD 11:53 → M ED INP 11:54 → M MS5PR 03-12 01:45 → OBSVTOIN 03-13 07:57
PROVIDERS: ADMIT Internal Medicine; ATTEND Internal Medicine Nephrology
DX: I16.0 Hypertensive urgency (principal); E66.2 Morbid (severe) obesity with alveolar hypoventilation; Z68.43 Body mass index [BMI] 50.0-59.9, adult; I48.0 Paroxysmal atrial fibrillation; M51.36 Other intervertebral disc degeneration, lumbar region; M19.90 Unspecified osteoarthritis, unspecified site; I12.9 Hypertensive chronic kidney disease with stage 1 through stage 4 chronic kidney disease, or unspecified chronic kidney disease; K21.9 Gastro-esophageal reflux disease without esophagitis; K64.9 Unspecified hemorrhoids; E78.5 Hyperlipidemia, unspecified; E55.9 Vitamin D deficiency, unspecified; D43.2 Neoplasm of uncertain behavior of brain, unspecified; N18.30 Chronic kidney disease, stage 3 unspecified; Z90.79 Acquired absence of other genital organ(s); Z98.42 Cataract extraction status, left eye; Z20.822 Contact with and (suspected) exposure to COVID-19; Z86.73 Personal history of transient ischemic attack (TIA), and cerebral infarction without residual deficits; Z91.14 Patient's other noncompliance with medication regimen; Z79.899 Other long term (current) drug therapy; Z88.5 Allergy status to narcotic agent; F41.9 Anxiety disorder, unspecified; F32.A Depression, unspecified; Z74.1 Need for assistance with personal care; R09.02 Hypoxemia; R26.89 Other abnormalities of gait and mobility; Z66 Do not resuscitate

== ENCOUNTER 2021-06-20 09:47 | Observation (INO) | payer MEDICARE, OTHER ==
[~2021-06-20] VITALS: Ht 154.9 cm; Wt 121.3 kg
[2021-06-20 08:30] VITALS: BP 141/94
[~2021-06-20 09:47] MED LIST changes: +COZA50TA PO; +LOSA100T45 PO; -LOSA100T50 PO; +LOSA25TA13 PO; -LOSA25TA14 PO
[2021-06-20] MEDS ORDERED: fentaNYL 100 MCG/2 ML INJECTION IV ONE (12:20)
[2021-06-20] MEDS ORDERED: LOSARTAN 50MG TABLET PO ONE (12:25)
[2021-06-20 12:52] LABS: BASO # 0.1 10^3/uL (0.0-0.2); BASO % 0.4 % (0.0-1.0); EOS # 0.1 10^3/uL (0.0-0.5); EOS % 0.6 % (0.0-3.0); HEMATOCRIT 44.6 % (36.0-47.0); LYMPH # 1.4 10^3/uL (1.5-5.0); LYMPH % 9.9 % (24.0-44.0); MEAN CORPUSCULAR HEMOGLOBIN 26.6 pg (27.0-33.0); MEAN CORPUSCULAR HGB CONC 31.4 g/dl (32.0-36.5); MEAN CORPUSCULAR VOLUME 84.6 fl (80.0-96.0); MONO # 0.8 10^3/uL (0.0-0.8); MONO % 5.3 % (2.0-8.0); NEUTROPHILS # 11.7 10^3/uL (1.5-8.5); NEUTROPHILS % 82.9 % (36.0-66.0); PLATELET COUNT, AUTOMATED 379 10^3/uL (150-450); RED BLOOD COUNT 5.27 10^6/uL (4.00-5.40); WHITE BLOOD COUNT 14.1 10^3/uL (4.0-10.0)
[2021-06-20 13:19] LABS: ALBUMIN 3.1 GM/DL (3.2-5.2); ALT/SGPT 31 U/L (12-78); BILIRUBIN,DIRECT < 0.1 MG/DL (0.0-0.2); BILIRUBIN,TOTAL 0.5 MG/DL (0.2-1.0); BLOOD UREA NITROGEN 28 MG/DL (7-18); CALCIUM LEVEL 9.7 MG/DL (8.8-10.2); CARBON DIOXIDE LEVEL 31 MEQ/L (21-32); CHLORIDE LEVEL 104 MEQ/L (98-107); CREATININE FOR GFR 1.06 MG/DL (0.55-1.30); GLOMERULAR FILTRATION RATE 54.1 (>39); GLUCOSE, FASTING 96 MG/DL (70-100); LIPASE 79 U/L (73-393); POTASSIUM SERUM 4.8 MEQ/L (3.5-5.1); SODIUM LEVEL 138 MEQ/L (136-145); TOTAL PROTEIN 6.9 GM/DL (6.4-8.2)
[2021-06-20] MEDS ORDERED: ISOVUE-370 76% 100ML VIAL As Ordered ONE (13:48)
[2021-06-20] MEDS ORDERED: HOME MED LIST COMPLETE! XX SCH (15:45)
[2021-06-20 17:45] VITALS: BP 141/94
[2021-06-20 18:15] VITALS: BP 141/94
[2021-06-20] MEDS: RIVAROXABAN 15 MG TAB (XARELTO) PO SCH (18:39)
[2021-06-20] MEDS: PERCOCET 5MG/325MG TAB PO PRN (18:42)
[2021-06-20] MEDS: LOSARTAN 50MG TABLET PO SCH (21:58)
[2021-06-20] MEDS: SENOKOT S TAB PO SCH (21:58)
[2021-06-20] MEDS: PANTOPRAZOLE 40MG TAB (PROTONIX) PO SCH (21:59)
[2021-06-20 22:00] VITALS: BP 141/72
[2021-06-20] MEDS: ACETAMINOPHEN 500 MG TAB PO SCH ×2 (22:00→22:30)
[2021-06-20] MEDS: oxyBUTYnin *DITROPAN XL* 5 MG TABCR PO SCH (22:01)
[2021-06-20] MEDS: NAPROXEN 250 MG TAB PO SCH (22:01)
[2021-06-20] MEDS: NYSTATIN 100,000 UNITS/GM TOPICAL PWD 15 GM TOP SCH (22:14)
[2021-06-21 06:00] VITALS: BP 135/66
[2021-06-21 06:59] LABS: BASO # 0.1 10^3/uL (0.0-0.2); BASO % 0.7 % (0.0-1.0); EOS # 0.3 10^3/uL (0.0-0.5); EOS % 3.2 % (0.0-3.0); HEMATOCRIT 43.7 % (36.0-47.0); HEMOGLOBIN 13.4 g/dl (12.0-15.5); LYMPH # 2.3 10^3/uL (1.5-5.0); LYMPH % 21.7 % (24.0-44.0); MEAN CORPUSCULAR HEMOGLOBIN 26.7 pg (27.0-33.0); MEAN CORPUSCULAR HGB CONC 30.7 g/dl (32.0-36.5); MEAN CORPUSCULAR VOLUME 87.1 fl (80.0-96.0); MONO # 0.7 10^3/uL (0.0-0.8); MONO % 6.5 % (2.0-8.0); NEUTROPHILS # 7.2 10^3/uL (1.5-8.5); NEUTROPHILS % 67.2 % (36.0-66.0); PLATELET COUNT, AUTOMATED 389 10^3/uL (150-450); RED BLOOD COUNT 5.02 10^6/uL (4.00-5.40); WHITE BLOOD COUNT 10.7 10^3/uL (4.0-10.0)
[2021-06-21 07:27] LABS: CALCIUM LEVEL 9.5 MG/DL (8.8-10.2); CREATININE FOR GFR 1.23 MG/DL (0.55-1.30); GLOMERULAR FILTRATION RATE 45.6 (>39)
[2021-06-21] MEDS: MIRALAX *UNIT DOSE* 17GM PACKET PO SCH (10:50)
[2021-06-21] MEDS: SENOKOT S TAB PO SCH ×2 (10:50→20:09)
[2021-06-21] MEDS: bisoproloL fumarate 5 MG TAB PO SCH (10:52)
[2021-06-21] MEDS: LOSARTAN 50MG TABLET PO SCH ×2 (10:53→20:13)
[2021-06-21] MEDS: NAPROXEN 250 MG TAB PO SCH ×2 (10:53→20:12)
[2021-06-21] MEDS: ACETAMINOPHEN 500 MG TAB PO SCH ×2 (10:54→20:14)
[2021-06-21] MEDS: NYSTATIN 100,000 UNITS/GM TOPICAL PWD 15 GM TOP SCH ×2 (10:54→20:14)
[2021-06-21] MEDS ORDERED: NYST10006 TOP (11:07)
[2021-06-21] MEDS ORDERED: MIRA1POW3 PO (11:07)
[2021-06-21] MEDS ORDERED: ACET-683 PO (11:07)
[2021-06-21] MEDS ORDERED: PERCOCET PO (11:07)
[2021-06-21] MEDS ORDERED: NAPR-849 PO (11:07)
[2021-06-21 14:00] VITALS: BP 129/70
[2021-06-21] MEDS: RIVAROXABAN 15 MG TAB (XARELTO) PO SCH (17:28)
[2021-06-21] MEDS: PERCOCET 5MG/325MG TAB PO PRN (20:11)
[2021-06-21] MEDS: PANTOPRAZOLE 40MG TAB (PROTONIX) PO SCH (20:12)
[2021-06-21] MEDS: oxyBUTYnin *DITROPAN XL* 5 MG TABCR PO SCH (20:12)
[2021-06-22 06:00] VITALS: BP 101/65
[2021-06-22 06:14] LABS: BASO # 0.1 10^3/uL (0.0-0.2); BASO % 0.7 % (0.0-1.0); EOS # 0.5 10^3/uL (0.0-0.5); EOS % 6.2 % (0.0-3.0); HEMATOCRIT 39.8 % (36.0-47.0); HEMOGLOBIN 12.4 g/dl (12.0-15.5); LYMPH # 1.9 10^3/uL (1.5-5.0); LYMPH % 22.2 % (24.0-44.0); MEAN CORPUSCULAR HEMOGLOBIN 26.8 pg (27.0-33.0); MEAN CORPUSCULAR HGB CONC 31.2 g/dl (32.0-36.5); MONO # 0.7 10^3/uL (0.0-0.8); MONO % 7.8 % (2.0-8.0); NEUTROPHILS # 5.2 10^3/uL (1.5-8.5); NEUTROPHILS % 62.4 % (36.0-66.0); PLATELET COUNT, AUTOMATED 336 10^3/uL (150-450); RED BLOOD COUNT 4.63 10^6/uL (4.00-5.40); WHITE BLOOD COUNT 8.4 10^3/uL (4.0-10.0)
[2021-06-22 06:44] LABS: CALCIUM LEVEL 9.4 MG/DL (8.8-10.2); CREATININE FOR GFR 1.16 MG/DL (0.55-1.30); GLOMERULAR FILTRATION RATE 48.8 (>39)
[2021-06-22 08:26] VITALS: BP 155/85
[2021-06-22] MEDS: SENOKOT S TAB PO SCH (08:26)
[2021-06-22] MEDS: bisoproloL fumarate 5 MG TAB PO SCH (08:26)
[2021-06-22] MEDS: LOSARTAN 50MG TABLET PO SCH (08:26)
[2021-06-22] MEDS: MIRALAX *UNIT DOSE* 17GM PACKET PO SCH (08:27)
[2021-06-22] MEDS: NYSTATIN 100,000 UNITS/GM TOPICAL PWD 15 GM TOP SCH (08:27)
[2021-06-22] MEDS: NAPROXEN 250 MG TAB PO SCH (08:27)
[2021-06-22] MEDS: ACETAMINOPHEN 500 MG TAB PO SCH (08:27)
[2021-06-22] MEDS ORDERED: FLUCONAZOLE 50MG TABLET PO ONE (09:40)
[2021-06-22] MEDS ORDERED: FLUC150T9 PO (10:55)
[2021-06-22] MEDS ORDERED: NYST1POW9 TOP (10:57)
== END 2021-06-22 12:40 | disposition home health service (06) ==
LOC: M ED 09:47 → EDBD 09:47 → M ED INP 09:48 → UNDOADMIN 15:24 → ENRESERV 17:04 → M MSPAV 17:48
PROVIDERS: ADMIT Internal Medicine Nephrology; ATTEND Internal Medicine Nephrology
DX: R26.81 Unsteadiness on feet (principal); Z91.81 History of falling; N32.81 Overactive bladder; M25.552 Pain in left hip; R10.32 Left lower quadrant pain; R42 Dizziness and giddiness; B37.2 Candidiasis of skin and nail; E66.2 Morbid (severe) obesity with alveolar hypoventilation; Z68.42 Body mass index [BMI] 45.0-49.9, adult; J96.11 Chronic respiratory failure with hypoxia; Z99.81 Dependence on supplemental oxygen; I12.9 Hypertensive chronic kidney disease with stage 1 through stage 4 chronic kidney disease, or unspecified chronic kidney disease; M51.37 Other intervertebral disc degeneration, lumbosacral region; M19.90 Unspecified osteoarthritis, unspecified site; K21.9 Gastro-esophageal reflux disease without esophagitis; J30.1 Allergic rhinitis due to pollen; I69.398 Other sequelae of cerebral infarction; I69.354 Hemiplegia and hemiparesis following cerebral infarction affecting left non-dominant side; E78.5 Hyperlipidemia, unspecified; E55.9 Vitamin D deficiency, unspecified; N18.30 Chronic kidney disease, stage 3 unspecified; D33.2 Benign neoplasm of brain, unspecified; I48.0 Paroxysmal atrial fibrillation; K57.90 Diverticulosis of intestine, part unspecified, without perforation or abscess without bleeding; Z79.899 Other long term (current) drug therapy; Z79.1 Long term (current) use of non-steroidal anti-inflammatories (NSAID); Z79.01 Long term (current) use of anticoagulants; Z88.5 Allergy status to narcotic agent
CPT/HCPCS: 36415; 73502; 73552; 73564; 74177; 80048; 80076; 81001; 83690; 85025; 87798; 93041; 97116; 97162; 97530; 99285; G0378; J3010; Q9967

== ENCOUNTER 2021-07-29 15:36 | Inpatient (IN) | payer OTHER, MEDICAID ==
[~2021-07-29] VITALS: Ht 152.4 cm; Wt 121.2 kg
[~2021-07-29 15:36] MED LIST changes: +ACET-683 PO; +FLUC150T9 PO; +MIRA1POW3 PO; +NAPR-849 PO; +NYST10006 TOP; +NYST1POW9 TOP; +PERCOCET PO
[2021-07-29 16:52] LABS: BASO # 0.1 10^3/uL (0.0-0.2); BASO % 0.5 % (0.0-1.0); EOS # 0.3 10^3/uL (0.0-0.5); EOS % 2.4 % (0.0-3.0); HEMATOCRIT 38.6 % (36.0-47.0); LYMPH # 1.3 10^3/uL (1.5-5.0); LYMPH % 12.4 % (24.0-44.0); MEAN CORPUSCULAR HEMOGLOBIN 27.6 pg (27.0-33.0); MEAN CORPUSCULAR HGB CONC 31.1 g/dl (32.0-36.5); MEAN CORPUSCULAR VOLUME 88.7 fl (80.0-96.0); MONO # 0.7 10^3/uL (0.0-0.8); MONO % 6.2 % (2.0-8.0); NEUTROPHILS # 8.2 10^3/uL (1.5-8.5); NEUTROPHILS % 77.6 % (36.0-66.0); PLATELET COUNT, AUTOMATED 379 10^3/uL (150-450); RED BLOOD COUNT 4.35 10^6/uL (4.00-5.40); WHITE BLOOD COUNT 10.6 10^3/uL (4.0-10.0)
[2021-07-29 17:21] LABS: CK-MB VALUE MASS 1.1 NG/ML (<3.6); MB/CK RELATIVE INDEX 2.44 (< OR =4)
[2021-07-29 17:22] LABS: CK-MB VALUE MASS 1.4 NG/ML (<3.6); MB/CK RELATIVE INDEX 3.04 (< OR =4)
[2021-07-29 17:28] LABS: ALT/SGPT 27 U/L (12-78); BILIRUBIN,DIRECT 0.1 MG/DL (0.0-0.2); BILIRUBIN,TOTAL 0.4 MG/DL (0.2-1.0); NT-PRO BNP 625 PG/ML (<125); THYROXINE (T4) 9.2 UG/DL (4.5-12.0); TOTAL PROTEIN 6.2 GM/DL (6.4-8.2)
[2021-07-29 17:58] LABS: RSV AMPLIFICATION NEGATIVE (NEGATIVE)
[2021-07-29 18:51] LABS: BLOOD UREA NITROGEN 18 MG/DL (7-18); CALCIUM LEVEL 9.2 MG/DL (8.8-10.2); CARBON DIOXIDE LEVEL 33 MEQ/L (21-32); CHLORIDE LEVEL 106 MEQ/L (98-107); CREATININE FOR GFR 0.93 MG/DL (0.55-1.30); GLOMERULAR FILTRATION RATE > 60.0 (>39); GLUCOSE, FASTING 100 MG/DL (70-100); SODIUM LEVEL 145 MEQ/L (136-145)
[2021-07-29] MEDS ORDERED: ISOVUE-370 76% 100ML VIAL As Ordered ONE (19:01)
[2021-07-29 19:04] LABS: ABG BASE EXCESS 3.7 (-2.0-2.0); ABG HCO3 30.3 MEQ/L (22.0-26.0); ABG O2 SATURATION 97.7 % (95.0-99.0); ABG PARTIAL PRESSURE CO2 55.1 mmHg (35.0-45.0); ABG PARTIAL PRESSURE O2 103.5 mmHg (75.0-100.0); ABG STANDARD HCO3 27.8 MEQ/L (22.0-26.0); ABG pH (ARTERIAL) 7.358 UNITS (7.350-7.450)
[2021-07-29 19:55] LABS: CK-MB VALUE MASS 1.1 NG/ML (<3.6); MB/CK RELATIVE INDEX 1.39 (< OR =4)
[2021-07-29] MEDS ORDERED: FUROSEMIDE 40MG/4ML VIAL (J1940) IV ONE (21:20)
[2021-07-30] MEDS ORDERED: NYST1POW9 TOP (00:31)
[2021-07-30] MEDS ORDERED: LOSA25TA13 PO (00:31)
[2021-07-30] MEDS ORDERED: HOME MED LIST COMPLETE! XX SCH (00:35)
[2021-07-30] MEDS: NYSTATIN 100,000 UNITS/GM TOPICAL PWD 15 GM TOP SCH ×2 (09:00→21:29)
[2021-07-30] MEDS: PANTOPRAZOLE 40MG TAB (PROTONIX) PO SCH (09:31)
[2021-07-30] MEDS: LOSARTAN 25 MG TAB PO SCH (09:31)
[2021-07-30] MEDS: bisoproloL fumarate 5 MG TAB PO SCH (09:31)
[2021-07-30] MEDS: ATORVASTATIN 20 MG TAB PO SCH (09:31)
[2021-07-30] MEDS ORDERED: VANCOMYCIN HCL 1,000 MG in IV FLUID PLACE HOLDER 1 EA IV SCH (09:55)
[2021-07-30] MEDS: oxyBUTYnin *DITROPAN XL* 5 MG TABCR PO SCH (11:14)
[2021-07-30] MEDS ORDERED: VANCOMYCIN HCL 1,000 MG, VIAL MATE ADAPTER 1 EACH in NS 250 ML IV ONE ×2 (12:00→13:00)
[2021-07-30 15:32] VITALS: BP 111/79
[2021-07-30] MEDS ORDERED: diphenhydrAMINE CREAM 30GM TOP PRN (16:40)
[2021-07-30] MEDS: VITAMIN D 1,000 INTERNATIONAL UNITS TABLET PO SCH (17:31)
[2021-07-30] MEDS: RIVAROXABAN 15 MG TAB (XARELTO) PO SCH (17:31)
[2021-07-30 18:00] VITALS: BP 127/47
[2021-07-30] MEDS ORDERED: NYSTATIN 100,000 UNITS/GM TOPICAL PWD 15 GM TOP SCH (21:00)
[2021-07-31] MEDS ORDERED: VANCOMYCIN HCL 1,000 MG, VIAL MATE ADAPTER 1 EACH in NS 250 ML IV SCH ×3
[2021-07-31] MEDS ORDERED: VANCOMYCIN HCL 750 MG, VIAL MATE ADAPTER 1 EACH in NS 250 ML IV SCH ×3 (01:00→13:00)
[2021-07-31 05:25] VITALS: BP 129/74
[2021-07-31 06:53] LABS: HEMOGLOBIN 11.9 g/dl (12.0-15.5); MEAN CORPUSCULAR HGB CONC 31.3 g/dl (32.0-36.5); MEAN CORPUSCULAR VOLUME 89.4 fl (80.0-96.0); PLATELET COUNT, AUTOMATED 338 10^3/uL (150-450); RED BLOOD COUNT 4.25 10^6/uL (4.00-5.40); WHITE BLOOD COUNT 8.8 10^3/uL (4.0-10.0)
[2021-07-31 06:57] LABS: BLOOD UREA NITROGEN 15 MG/DL (7-18); CALCIUM LEVEL 8.8 MG/DL (8.8-10.2); CARBON DIOXIDE LEVEL 33 MEQ/L (21-32); CHLORIDE LEVEL 109 MEQ/L (98-107); CREATININE FOR GFR 0.74 MG/DL (0.55-1.30); GLOMERULAR FILTRATION RATE > 60.0 (>39); GLUCOSE, FASTING 98 MG/DL (70-100); SODIUM LEVEL 145 MEQ/L (136-145)
[2021-07-31] MEDS: oxyBUTYnin *DITROPAN XL* 5 MG TABCR PO SCH (11:07)
[2021-07-31] MEDS: PANTOPRAZOLE 40MG TAB (PROTONIX) PO SCH (11:07)
[2021-07-31] MEDS: ATORVASTATIN 20 MG TAB PO SCH (11:07)
[2021-07-31] MEDS: VITAMIN D 1,000 INTERNATIONAL UNITS TABLET PO SCH (11:07)
[2021-07-31] MEDS: NYSTATIN 100,000 UNITS/GM TOPICAL PWD 15 GM TOP SCH ×2 (11:08→20:08)
[2021-07-31] MEDS: bisoproloL fumarate 5 MG TAB PO SCH (11:11)
[2021-07-31] MEDS: LOSARTAN 25 MG TAB PO SCH (11:11)
[2021-07-31 14:00] VITALS: BP 128/71
[2021-07-31] MEDS: RIVAROXABAN 15 MG TAB (XARELTO) PO SCH (17:03)
[2021-07-31 18:54] VITALS: BP 128/73
[2021-08-01 06:00] VITALS: BP 142/75
[2021-08-01 06:33] LABS: HEMATOCRIT 38.1 % (36.0-47.0); HEMOGLOBIN 11.7 g/dl (12.0-15.5); MEAN CORPUSCULAR HEMOGLOBIN 27.1 pg (27.0-33.0); MEAN CORPUSCULAR HGB CONC 30.7 g/dl (32.0-36.5); MEAN CORPUSCULAR VOLUME 88.2 fl (80.0-96.0); PLATELET COUNT, AUTOMATED 335 10^3/uL (150-450); RED BLOOD COUNT 4.32 10^6/uL (4.00-5.40); WHITE BLOOD COUNT 8.8 10^3/uL (4.0-10.0)
[2021-08-01 06:57] LABS: BLOOD UREA NITROGEN 19 MG/DL (7-18); CALCIUM LEVEL 9.6 MG/DL (8.8-10.2); CARBON DIOXIDE LEVEL 30 MEQ/L (21-32); CHLORIDE LEVEL 109 MEQ/L (98-107); CREATININE FOR GFR 0.92 MG/DL (0.55-1.30); GLOMERULAR FILTRATION RATE > 60.0 (>39); GLUCOSE, FASTING 99 MG/DL (70-100); SODIUM LEVEL 144 MEQ/L (136-145)
[2021-08-01] MEDS: oxyBUTYnin *DITROPAN XL* 5 MG TABCR PO SCH (09:43)
[2021-08-01] MEDS: PANTOPRAZOLE 40MG TAB (PROTONIX) PO SCH (09:45)
[2021-08-01] MEDS: VITAMIN D 1,000 INTERNATIONAL UNITS TABLET PO SCH (09:45)
[2021-08-01] MEDS: ATORVASTATIN 20 MG TAB PO SCH (09:45)
[2021-08-01] MEDS: LOSARTAN 25 MG TAB PO SCH (09:45)
[2021-08-01] MEDS: bisoproloL fumarate 5 MG TAB PO SCH (09:46)
[2021-08-01] MEDS: NYSTATIN 100,000 UNITS/GM TOPICAL PWD 15 GM TOP SCH ×2 (09:49→20:41)
[2021-08-01] MEDS ORDERED: FUROSEMIDE 40MG/4ML VIAL (J1940) IV ONE (12:40)
[2021-08-01 14:00] VITALS: BP 145/72
[2021-08-01 18:00] VITALS: BP 136/76
[2021-08-01] MEDS: RIVAROXABAN 15 MG TAB (XARELTO) PO SCH (19:05)
[2021-08-02] MEDS ORDERED: predniSONE 20 MG TAB PO ONE (01:25)
[2021-08-02 05:29] VITALS: BP 148/76
[2021-08-02 07:07] LABS: HEMATOCRIT 39.8 % (36.0-47.0); HEMOGLOBIN 12.5 g/dl (12.0-15.5); MEAN CORPUSCULAR HEMOGLOBIN 27.8 pg (27.0-33.0); MEAN CORPUSCULAR HGB CONC 31.4 g/dl (32.0-36.5); MEAN CORPUSCULAR VOLUME 88.6 fl (80.0-96.0); PLATELET COUNT, AUTOMATED 344 10^3/uL (150-450); RED BLOOD COUNT 4.49 10^6/uL (4.00-5.40); WHITE BLOOD COUNT 9.9 10^3/uL (4.0-10.0)
[2021-08-02 07:36] LABS: CALCIUM LEVEL 9.3 MG/DL (8.8-10.2); CREATININE FOR GFR 1.09 MG/DL (0.55-1.30); GLOMERULAR FILTRATION RATE 52.4 (>39); POTASSIUM SERUM 4.5 MEQ/L (3.5-5.1)
[2021-08-02 12:12] LABS: ABG BASE EXCESS 2.8 (-2.0-2.0); ABG HCO3 26.9 MEQ/L (22.0-26.0); ABG PARTIAL PRESSURE CO2 39.5 mmHg (35.0-45.0); ABG PARTIAL PRESSURE O2 67.3 mmHg (75.0-100.0); ABG STANDARD HCO3 26.9 MEQ/L (22.0-26.0); ABG TOTAL CO2 28.1 MEQ/L (23.0-31.0); ABG pH (ARTERIAL) 7.451 UNITS (7.350-7.450)
[2021-08-02] MEDS: ATORVASTATIN 20 MG TAB PO SCH (12:53)
[2021-08-02] MEDS: VITAMIN D 1,000 INTERNATIONAL UNITS TABLET PO SCH (12:53)
[2021-08-02] MEDS: PANTOPRAZOLE 40MG TAB (PROTONIX) PO SCH (12:53)
[2021-08-02] MEDS: oxyBUTYnin *DITROPAN XL* 5 MG TABCR PO SCH (12:54)
[2021-08-02] MEDS: NYSTATIN 100,000 UNITS/GM TOPICAL PWD 15 GM TOP SCH ×2 (12:54→20:01)
[2021-08-02] MEDS: bisoproloL fumarate 5 MG TAB PO SCH (12:57)
[2021-08-02] MEDS: LOSARTAN 25 MG TAB PO SCH (12:57)
[2021-08-02 14:00] VITALS: BP 147/72
[2021-08-02] MEDS: RIVAROXABAN 15 MG TAB (XARELTO) PO SCH (17:19)
[2021-08-02 18:00] VITALS: BP 143/76
[2021-08-02] MEDS ORDERED: RIVAROXABAN 15 MG TAB (XARELTO) PO SCH (18:00)
[2021-08-03 05:05] VITALS: BP 136/65
[2021-08-03 06:49] LABS: HEMATOCRIT 37.1 % (36.0-47.0); HEMOGLOBIN 11.7 g/dl (12.0-15.5); MEAN CORPUSCULAR HEMOGLOBIN 27.4 pg (27.0-33.0); MEAN CORPUSCULAR HGB CONC 31.5 g/dl (32.0-36.5); MEAN CORPUSCULAR VOLUME 86.9 fl (80.0-96.0); PLATELET COUNT, AUTOMATED 328 10^3/uL (150-450); RED BLOOD COUNT 4.27 10^6/uL (4.00-5.40); WHITE BLOOD COUNT 10.3 10^3/uL (4.0-10.0)
[2021-08-03 06:58] LABS: CALCIUM LEVEL 9.2 MG/DL (8.8-10.2); CREATININE FOR GFR 1.16 MG/DL (0.55-1.30); GLOMERULAR FILTRATION RATE 48.8 (>39); POTASSIUM SERUM 3.7 MEQ/L (3.5-5.1)
[2021-08-03] MEDS: ATORVASTATIN 20 MG TAB PO SCH (09:31)
[2021-08-03] MEDS: bisoproloL fumarate 5 MG TAB PO SCH (09:31)
[2021-08-03] MEDS: LOSARTAN 25 MG TAB PO SCH (09:31)
[2021-08-03] MEDS: VITAMIN D 1,000 INTERNATIONAL UNITS TABLET PO SCH (09:31)
[2021-08-03] MEDS: oxyBUTYnin *DITROPAN XL* 5 MG TABCR PO SCH (09:31)
[2021-08-03] MEDS: PANTOPRAZOLE 40MG TAB (PROTONIX) PO SCH (09:31)
[2021-08-03] MEDS: NYSTATIN 100,000 UNITS/GM TOPICAL PWD 15 GM TOP SCH ×2 (09:32→20:04)
[2021-08-03 14:00] VITALS: BP 146/60
[2021-08-03] MEDS: RIVAROXABAN 15 MG TAB (XARELTO) PO SCH (17:20)
[2021-08-03 19:41] VITALS: BP 146/72
[2021-08-04 05:00] VITALS: BP 108/72
[2021-08-04 06:35] LABS: HEMOGLOBIN 11.5 g/dl (12.0-15.5); MEAN CORPUSCULAR HEMOGLOBIN 27.6 pg (27.0-33.0); MEAN CORPUSCULAR HGB CONC 31.1 g/dl (32.0-36.5); MEAN CORPUSCULAR VOLUME 88.9 fl (80.0-96.0); PLATELET COUNT, AUTOMATED 341 10^3/uL (150-450); RED BLOOD COUNT 4.16 10^6/uL (4.00-5.40)
[2021-08-04 06:54] LABS: CALCIUM LEVEL 9.2 MG/DL (8.8-10.2); CREATININE FOR GFR 1.16 MG/DL (0.55-1.30); GLOMERULAR FILTRATION RATE 48.8 (>39); POTASSIUM SERUM 4.2 MEQ/L (3.5-5.1)
[2021-08-04] MEDS: PANTOPRAZOLE 40MG TAB (PROTONIX) PO SCH (08:09)
[2021-08-04] MEDS: VITAMIN D 1,000 INTERNATIONAL UNITS TABLET PO SCH (08:09)
[2021-08-04] MEDS: ATORVASTATIN 20 MG TAB PO SCH (08:09)
[2021-08-04] MEDS: oxyBUTYnin *DITROPAN XL* 5 MG TABCR PO SCH (08:09)
[2021-08-04] MEDS: LOSARTAN 25 MG TAB PO SCH (08:18)
[2021-08-04] MEDS: NYSTATIN 100,000 UNITS/GM TOPICAL PWD 15 GM TOP SCH ×2 (08:18→20:49)
[2021-08-04] MEDS: bisoproloL fumarate 5 MG TAB PO SCH (08:18)
[2021-08-04 14:00] VITALS: BP 114/70
[2021-08-04] MEDS: RIVAROXABAN 15 MG TAB (XARELTO) PO SCH (17:39)
[2021-08-04 20:00] VITALS: BP 125/68
[2021-08-05 06:00] VITALS: BP 140/69
[2021-08-05] MEDS: oxyBUTYnin *DITROPAN XL* 5 MG TABCR PO SCH (08:59)
[2021-08-05] MEDS: ATORVASTATIN 20 MG TAB PO SCH (08:59)
[2021-08-05] MEDS: PANTOPRAZOLE 40MG TAB (PROTONIX) PO SCH (08:59)
[2021-08-05] MEDS: LOSARTAN 25 MG TAB PO SCH (08:59)
[2021-08-05] MEDS: VITAMIN D 1,000 INTERNATIONAL UNITS TABLET PO SCH (08:59)
[2021-08-05] MEDS: NYSTATIN 100,000 UNITS/GM TOPICAL PWD 15 GM TOP SCH ×2 (09:00→21:34)
[2021-08-05] MEDS: bisoproloL fumarate 5 MG TAB PO SCH (09:00)
[2021-08-05 14:00] VITALS: BP 146/69
[2021-08-05] MEDS: RIVAROXABAN 15 MG TAB (XARELTO) PO SCH (17:32)
[2021-08-05 19:22] VITALS: BP 140/70
[2021-08-06 05:31] VITALS: O2SAT 92
[2021-08-06 06:00] VITALS: BP 156/83
[2021-08-06 08:00] VITALS: BP 152/80
[2021-08-06] MEDS: oxyBUTYnin *DITROPAN XL* 5 MG TABCR PO SCH (08:34)
[2021-08-06] MEDS: PANTOPRAZOLE 40MG TAB (PROTONIX) PO SCH (08:34)
[2021-08-06] MEDS: VITAMIN D 1,000 INTERNATIONAL UNITS TABLET PO SCH (08:35)
[2021-08-06] MEDS: ATORVASTATIN 20 MG TAB PO SCH (08:35)
[2021-08-06] MEDS: LOSARTAN 25 MG TAB PO SCH (08:35)
[2021-08-06] MEDS: bisoproloL fumarate 5 MG TAB PO SCH (08:36)
[2021-08-06] MEDS: NYSTATIN 100,000 UNITS/GM TOPICAL PWD 15 GM TOP SCH ×2 (08:37→21:19)
[2021-08-06 14:00] VITALS: BP 148/86
[2021-08-06] MEDS: RIVAROXABAN 15 MG TAB (XARELTO) PO SCH (18:38)
[2021-08-06 22:16] VITALS: O2SAT 97
[2021-08-07 06:00] VITALS: BP 157/75
[2021-08-07 08:00] VITALS: BP 157/75
[2021-08-07] MEDS ORDERED: methylPREDNISolone 125MG 2ML VIAL IV ONE (08:10)
[2021-08-07] MEDS ORDERED: FUROSEMIDE 40MG/4ML VIAL (J1940) IV SCH (09:00)
[2021-08-07 09:10] LABS: HEMATOCRIT 40.8 % (36.0-47.0); HEMOGLOBIN 12.5 g/dl (12.0-15.5); MEAN CORPUSCULAR HEMOGLOBIN 27.2 pg (27.0-33.0); MEAN CORPUSCULAR HGB CONC 30.6 g/dl (32.0-36.5); MEAN CORPUSCULAR VOLUME 88.7 fl (80.0-96.0); PLATELET COUNT, AUTOMATED 346 10^3/uL (150-450); WHITE BLOOD COUNT 9.7 10^3/uL (4.0-10.0)
[2021-08-07] MEDS: NYSTATIN 100,000 UNITS/GM TOPICAL PWD 15 GM TOP SCH ×2 (09:25→20:18)
[2021-08-07] MEDS: PANTOPRAZOLE 40MG TAB (PROTONIX) PO SCH (09:26)
[2021-08-07] MEDS: LOSARTAN 25 MG TAB PO SCH (09:26)
[2021-08-07] MEDS: oxyBUTYnin *DITROPAN XL* 5 MG TABCR PO SCH (09:27)
[2021-08-07] MEDS: VITAMIN D 1,000 INTERNATIONAL UNITS TABLET PO SCH (09:28)
[2021-08-07] MEDS: bisoproloL fumarate 5 MG TAB PO SCH (09:28)
[2021-08-07] MEDS: ATORVASTATIN 20 MG TAB PO SCH (09:28)
[2021-08-07 09:44] LABS: ALBUMIN 3.2 GM/DL (3.2-5.2); BILIRUBIN,TOTAL 0.5 MG/DL (0.2-1.0); CALCIUM LEVEL 9.9 MG/DL (8.8-10.2); CREATININE FOR GFR 1.08 MG/DL (0.55-1.30); GLOMERULAR FILTRATION RATE 52.9 (>39)
[2021-08-07 14:00] VITALS: BP 147/78
[2021-08-07] MEDS ORDERED: ALBUTEROL SULFATE 2.5 MG/0.5 ML INH NEB SOLN NEB PRN (15:45)
[2021-08-07] MEDS ORDERED: PILL CUTTER 1 EACH XX PRN (16:10)
[2021-08-07] MEDS: RIVAROXABAN 15 MG TAB (XARELTO) PO SCH (17:23)
[2021-08-07 19:00] VITALS: BP 151/86
[2021-08-07] MEDS: IPRATROPIUM 0.5MG/ALBUTEROL 2.5MG INH SOL UD 3ML (DUONEB) NEB SCH (19:27)
[2021-08-07] MEDS: methylPREDNISolone 125MG 2ML VIAL IV SCH (20:17)
[2021-08-07 23:10] VITALS: O2SAT 96
[2021-08-08 06:00] VITALS: BP 130/75
[2021-08-08] MEDS: IPRATROPIUM 0.5MG/ALBUTEROL 2.5MG INH SOL UD 3ML (DUONEB) NEB SCH ×3 (07:10→19:13)
[2021-08-08] MEDS ORDERED: FUROSEMIDE 10MG PER 1/2 TABLET PO SCH (09:00)
[2021-08-08] MEDS ORDERED: predniSONE 20 MG TAB PO SCH (09:00)
[2021-08-08] MEDS: methylPREDNISolone 125MG 2ML VIAL IV SCH ×2 (09:41→20:37)
[2021-08-08] MEDS: FUROSEMIDE 20 MG TAB PO SCH (09:41)
[2021-08-08] MEDS: ATORVASTATIN 20 MG TAB PO SCH (09:42)
[2021-08-08] MEDS: oxyBUTYnin *DITROPAN XL* 5 MG TABCR PO SCH (09:42)
[2021-08-08] MEDS: VITAMIN D 1,000 INTERNATIONAL UNITS TABLET PO SCH (09:42)
[2021-08-08] MEDS: PANTOPRAZOLE 40MG TAB (PROTONIX) PO SCH (09:42)
[2021-08-08] MEDS: LOSARTAN 25 MG TAB PO SCH (09:42)
[2021-08-08] MEDS: bisoproloL fumarate 5 MG TAB PO SCH (09:42)
[2021-08-08] MEDS: NYSTATIN 100,000 UNITS/GM TOPICAL PWD 15 GM TOP SCH ×2 (09:43→20:36)
[2021-08-08] MEDS: RIVAROXABAN 15 MG TAB (XARELTO) PO SCH (17:12)
[2021-08-08 19:19] VITALS: BP 124/65
[2021-08-08 20:35] VITALS: O2SAT 97
[2021-08-09 06:00] VITALS: BP 150/82
[2021-08-09 06:44] LABS: HEMATOCRIT 37.5 % (36.0-47.0); HEMOGLOBIN 11.8 g/dl (12.0-15.5); MEAN CORPUSCULAR HEMOGLOBIN 27.3 pg (27.0-33.0); MEAN CORPUSCULAR HGB CONC 31.5 g/dl (32.0-36.5); MEAN CORPUSCULAR VOLUME 86.8 fl (80.0-96.0); PLATELET COUNT, AUTOMATED 345 10^3/uL (150-450); RED BLOOD COUNT 4.32 10^6/uL (4.00-5.40); WHITE BLOOD COUNT 15.2 10^3/uL (4.0-10.0)
[2021-08-09 07:09] LABS: ALBUMIN 3.1 GM/DL (3.2-5.2); BILIRUBIN,TOTAL 0.2 MG/DL (0.2-1.0); CALCIUM LEVEL 9.3 MG/DL (8.8-10.2); CREATININE FOR GFR 1.23 MG/DL (0.55-1.30); GLOMERULAR FILTRATION RATE 45.6 (>39); POTASSIUM SERUM 4.6 MEQ/L (3.5-5.1); TOTAL PROTEIN 6.3 GM/DL (6.4-8.2)
[2021-08-09] MEDS: IPRATROPIUM 0.5MG/ALBUTEROL 2.5MG INH SOL UD 3ML (DUONEB) NEB SCH ×3 (07:11→20:35)
[2021-08-09] MEDS: bisoproloL fumarate 5 MG TAB PO SCH (09:00)
[2021-08-09] MEDS: ATORVASTATIN 20 MG TAB PO SCH (09:16)
[2021-08-09] MEDS: PANTOPRAZOLE 40MG TAB (PROTONIX) PO SCH (09:16)
[2021-08-09] MEDS: oxyBUTYnin *DITROPAN XL* 5 MG TABCR PO SCH (09:16)
[2021-08-09] MEDS: LOSARTAN 25 MG TAB PO SCH (09:16)
[2021-08-09] MEDS: VITAMIN D 1,000 INTERNATIONAL UNITS TABLET PO SCH (09:17)
[2021-08-09] MEDS: methylPREDNISolone 125MG 2ML VIAL IV SCH (09:17)
[2021-08-09] MEDS: FUROSEMIDE 20 MG TAB PO SCH (09:17)
[2021-08-09] MEDS: NYSTATIN 100,000 UNITS/GM TOPICAL PWD 15 GM TOP SCH ×2 (09:21→20:03)
[2021-08-09 11:02] VITALS: O2SAT 97
[2021-08-09] MEDS: RIVAROXABAN 15 MG TAB (XARELTO) PO SCH (17:40)
[2021-08-09 22:30] VITALS: O2SAT 95
[2021-08-10 05:06] VITALS: BP 148/86
[2021-08-10 06:28] LABS: HEMATOCRIT 38.5 % (36.0-47.0); HEMOGLOBIN 12.4 g/dl (12.0-15.5); MEAN CORPUSCULAR HEMOGLOBIN 28.2 pg (27.0-33.0); MEAN CORPUSCULAR HGB CONC 32.2 g/dl (32.0-36.5); MEAN CORPUSCULAR VOLUME 87.7 fl (80.0-96.0); PLATELET COUNT, AUTOMATED 335 10^3/uL (150-450); RED BLOOD COUNT 4.39 10^6/uL (4.00-5.40); WHITE BLOOD COUNT 14.6 10^3/uL (4.0-10.0)
[2021-08-10 07:05] LABS: ALBUMIN 3.4 GM/DL (3.2-5.2); BILIRUBIN,TOTAL 0.2 MG/DL (0.2-1.0); CALCIUM LEVEL 9.9 MG/DL (8.8-10.2); CREATININE FOR GFR 1.18 MG/DL (0.55-1.30); GLOMERULAR FILTRATION RATE 47.8 (>39); POTASSIUM SERUM 4.3 MEQ/L (3.5-5.1); TOTAL PROTEIN 6.5 GM/DL (6.4-8.2)
[2021-08-10] MEDS: IPRATROPIUM 0.5MG/ALBUTEROL 2.5MG INH SOL UD 3ML (DUONEB) NEB SCH ×3 (07:57→19:42)
[2021-08-10 09:00] VITALS: O2SAT 95
[2021-08-10] MEDS: LOSARTAN 25 MG TAB PO SCH (09:09)
[2021-08-10] MEDS: predniSONE 20 MG TAB PO SCH (09:09)
[2021-08-10] MEDS: oxyBUTYnin *DITROPAN XL* 5 MG TABCR PO SCH (09:10)
[2021-08-10] MEDS: FUROSEMIDE 20 MG TAB PO SCH (09:11)
[2021-08-10] MEDS: ATORVASTATIN 20 MG TAB PO SCH (09:12)
[2021-08-10] MEDS: bisoproloL fumarate 5 MG TAB PO SCH (09:13)
[2021-08-10] MEDS: PANTOPRAZOLE 40MG TAB (PROTONIX) PO SCH (09:13)
[2021-08-10] MEDS: VITAMIN D 1,000 INTERNATIONAL UNITS TABLET PO SCH (09:13)
[2021-08-10] MEDS: NYSTATIN 100,000 UNITS/GM TOPICAL PWD 15 GM TOP SCH ×2 (09:14→21:50)
[2021-08-10] MEDS: RIVAROXABAN 15 MG TAB (XARELTO) PO SCH (18:32)
[2021-08-10 22:59] VITALS: BP 151/81
[2021-08-10 23:02] VITALS: O2SAT 95
[2021-08-11 02:44] VITALS: BP 154/83
[2021-08-11 03:07] LABS: VENOUS BASE EXCESS 1.2 (-2.0-2.0); VENOUS HCO3 27.3 MEQ/L (23.0-27.0); VENOUS O2 SATURATION 79.3 % (60.0-80.0); VENOUS PARTIAL PRESSURE O2 44.8 mmHg (30.0-50.0); VENOUS PH 7.364 UNITS (7.330-7.430); VENOUS STANDARD HCO3 25.1 MEQ/L; VENOUS TOTAL CO2 28.8 MEQ/L (24.0-28.0)
[2021-08-11 03:10] LABS: HEMATOCRIT 42.2 % (36.0-47.0); HEMOGLOBIN 13.1 g/dl (12.0-15.5); MEAN CORPUSCULAR HEMOGLOBIN 27.5 pg (27.0-33.0); MEAN CORPUSCULAR VOLUME 88.7 fl (80.0-96.0); PLATELET COUNT, AUTOMATED 347 10^3/uL (150-450); RED BLOOD COUNT 4.76 10^6/uL (4.00-5.40); WHITE BLOOD COUNT 12.6 10^3/uL (4.0-10.0)
[2021-08-11 03:38] LABS: ALBUMIN 3.4 GM/DL (3.2-5.2); BILIRUBIN,TOTAL 0.3 MG/DL (0.2-1.0); CREATININE FOR GFR 1.37 MG/DL (0.55-1.30); GLOMERULAR FILTRATION RATE 40.2 (>39); MAGNESIUM LEVEL 2.3 MG/DL (1.8-2.4); POTASSIUM SERUM 4.2 MEQ/L (3.5-5.1); TOTAL PROTEIN 6.5 GM/DL (6.4-8.2)
[2021-08-11 03:44] VITALS: BP 151/78
[2021-08-11 05:16] VITALS: BP 148/77
[2021-08-11 06:21] LABS: ABG BASE EXCESS 0.4 (-2.0-2.0); ABG HCO3 24.5 MEQ/L (22.0-26.0); ABG O2 SATURATION 93.6 % (95.0-99.0); ABG PARTIAL PRESSURE CO2 37.7 mmHg (35.0-45.0); ABG PARTIAL PRESSURE O2 67.4 mmHg (75.0-100.0); ABG STANDARD HCO3 24.7 MEQ/L (22.0-26.0); ABG TOTAL CO2 25.6 MEQ/L (23.0-31.0)
[2021-08-11 06:44] LABS: AMPHETAMINES LEVEL URINE NEGATIVE (NEGATIVE); BARBITURATES URINE NEGATIVE (NEGATIVE); BENZODIAZEPINES URINE NEGATIVE (NEGATIVE); CANNABINOIDS URINE NEGATIVE (NEGATIVE); COCAINE METABOLITE URINE NEGATIVE (NEGATIVE); METHADONE URINE NEGATIVE (NEGATIVE); OPIATES URINE NEGATIVE (NEGATIVE); PHENCYCLIDINE URINE NEGATIVE (NEGATIVE)
[2021-08-11] MEDS: IPRATROPIUM 0.5MG/ALBUTEROL 2.5MG INH SOL UD 3ML (DUONEB) NEB SCH ×3 (07:03→19:01)
[2021-08-11 07:35] VITALS: O2SAT 92
[2021-08-11] MEDS: predniSONE 20 MG TAB PO SCH (09:46)
[2021-08-11] MEDS: ATORVASTATIN 20 MG TAB PO SCH (09:47)
[2021-08-11] MEDS: oxyBUTYnin *DITROPAN XL* 5 MG TABCR PO SCH (09:47)
[2021-08-11] MEDS: VITAMIN D 1,000 INTERNATIONAL UNITS TABLET PO SCH (09:48)
[2021-08-11] MEDS: PANTOPRAZOLE 40MG TAB (PROTONIX) PO SCH (09:48)
[2021-08-11] MEDS: NYSTATIN 100,000 UNITS/GM TOPICAL PWD 15 GM TOP SCH ×2 (09:49→20:56)
[2021-08-11] MEDS: bisoproloL fumarate 5 MG TAB PO SCH (09:51)
[2021-08-11] MEDS: RIVAROXABAN 15 MG TAB (XARELTO) PO SCH (17:12)
[2021-08-12 06:52] LABS: HEMATOCRIT 38.1 % (36.0-47.0); HEMOGLOBIN 12.1 g/dl (12.0-15.5); MEAN CORPUSCULAR HEMOGLOBIN 27.6 pg (27.0-33.0); MEAN CORPUSCULAR HGB CONC 31.8 g/dl (32.0-36.5); MEAN CORPUSCULAR VOLUME 86.8 fl (80.0-96.0); PLATELET COUNT, AUTOMATED 335 10^3/uL (150-450); RED BLOOD COUNT 4.39 10^6/uL (4.00-5.40); WHITE BLOOD COUNT 14.1 10^3/uL (4.0-10.0)
[2021-08-12 07:18] LABS: BILIRUBIN,TOTAL 0.4 MG/DL (0.2-1.0); CALCIUM LEVEL 9.4 MG/DL (8.8-10.2); CREATININE FOR GFR 1.06 MG/DL (0.55-1.30); GLOMERULAR FILTRATION RATE 54.1 (>39); TOTAL PROTEIN 5.9 GM/DL (6.4-8.2)
[2021-08-12] MEDS: IPRATROPIUM 0.5MG/ALBUTEROL 2.5MG INH SOL UD 3ML (DUONEB) NEB SCH ×3 (07:32→19:31)
[2021-08-12] MEDS: ATORVASTATIN 20 MG TAB PO SCH (08:10)
[2021-08-12] MEDS: VITAMIN D 1,000 INTERNATIONAL UNITS TABLET PO SCH (08:10)
[2021-08-12] MEDS: NYSTATIN 100,000 UNITS/GM TOPICAL PWD 15 GM TOP SCH ×2 (08:10→20:07)
[2021-08-12] MEDS: PANTOPRAZOLE 40MG TAB (PROTONIX) PO SCH (08:11)
[2021-08-12] MEDS: predniSONE 20 MG TAB PO SCH (08:11)
[2021-08-12] MEDS: oxyBUTYnin *DITROPAN XL* 5 MG TABCR PO SCH (08:11)
[2021-08-12] MEDS: bisoproloL fumarate 5 MG TAB PO SCH (08:12)
[2021-08-12] MEDS: LOSARTAN 25 MG TAB PO SCH (09:38)
[2021-08-12 09:57] VITALS: O2SAT 95
[2021-08-12] MEDS: RIVAROXABAN 15 MG TAB (XARELTO) PO SCH (17:18)
[2021-08-13 05:15] VITALS: BP_SYST 156; BP_SYST 179; BP_DIAS 77; BP_DIAS 82
[2021-08-13 06:25] LABS: HEMATOCRIT 38.5 % (36.0-47.0); HEMOGLOBIN 12.3 g/dl (12.0-15.5); MEAN CORPUSCULAR HEMOGLOBIN 27.6 pg (27.0-33.0); MEAN CORPUSCULAR HGB CONC 31.9 g/dl (32.0-36.5); MEAN CORPUSCULAR VOLUME 86.5 fl (80.0-96.0); PLATELET COUNT, AUTOMATED 297 10^3/uL (150-450); RED BLOOD COUNT 4.45 10^6/uL (4.00-5.40); WHITE BLOOD COUNT 14.2 10^3/uL (4.0-10.0)
[2021-08-13 06:51] LABS: BILIRUBIN,TOTAL 0.4 MG/DL (0.2-1.0); CALCIUM LEVEL 9.6 MG/DL (8.8-10.2); CREATININE FOR GFR 1.06 MG/DL (0.55-1.30); GLOMERULAR FILTRATION RATE 54.1 (>39); TOTAL PROTEIN 5.9 GM/DL (6.4-8.2)
[2021-08-13] MEDS: IPRATROPIUM 0.5MG/ALBUTEROL 2.5MG INH SOL UD 3ML (DUONEB) NEB SCH ×3 (07:28→20:14)
[2021-08-13] MEDS: VITAMIN D 1,000 INTERNATIONAL UNITS TABLET PO SCH (08:10)
[2021-08-13] MEDS: ATORVASTATIN 20 MG TAB PO SCH (08:10)
[2021-08-13] MEDS: PANTOPRAZOLE 40MG TAB (PROTONIX) PO SCH (08:10)
[2021-08-13] MEDS: predniSONE 20 MG TAB PO SCH (08:10)
[2021-08-13] MEDS: oxyBUTYnin *DITROPAN XL* 5 MG TABCR PO SCH (08:10)
[2021-08-13] MEDS: bisoproloL fumarate 5 MG TAB PO SCH (08:11)
[2021-08-13] MEDS: LOSARTAN 25 MG TAB PO SCH (08:11)
[2021-08-13] MEDS: NYSTATIN 100,000 UNITS/GM TOPICAL PWD 15 GM TOP SCH ×2 (08:12→20:23)
[2021-08-13 09:45] VITALS: O2SAT 93
[2021-08-13] MEDS: RIVAROXABAN 15 MG TAB (XARELTO) PO SCH (17:12)
[2021-08-13] MEDS: FUROSEMIDE 20 MG TAB PO SCH (20:23)
[2021-08-13 21:59] VITALS: O2SAT 93
[2021-08-14 05:07] VITALS: BP 152/76
[2021-08-14] MEDS: IPRATROPIUM 0.5MG/ALBUTEROL 2.5MG INH SOL UD 3ML (DUONEB) NEB SCH ×3 (07:33→20:24)
[2021-08-14] MEDS: PANTOPRAZOLE 40MG TAB (PROTONIX) PO SCH (09:07)
[2021-08-14] MEDS: predniSONE 20 MG TAB PO SCH (09:07)
[2021-08-14] MEDS: FUROSEMIDE 20 MG TAB PO SCH (09:08)
[2021-08-14] MEDS: VITAMIN D 1,000 INTERNATIONAL UNITS TABLET PO SCH (09:08)
[2021-08-14] MEDS: ATORVASTATIN 20 MG TAB PO SCH (09:08)
[2021-08-14] MEDS: oxyBUTYnin *DITROPAN XL* 5 MG TABCR PO SCH (09:08)
[2021-08-14] MEDS: bisoproloL fumarate 5 MG TAB PO SCH (09:12)
[2021-08-14] MEDS: NYSTATIN 100,000 UNITS/GM TOPICAL PWD 15 GM TOP SCH ×2 (09:12→20:11)
[2021-08-14] MEDS: LOSARTAN 25 MG TAB PO SCH (09:12)
[2021-08-14] MEDS ORDERED: NYSTATIN 100,000 UNITS/GM TOPICAL PWD 15 GM TOP SCH (09:24)
[2021-08-14 14:22] VITALS: O2SAT 95
[2021-08-14] MEDS: RIVAROXABAN 15 MG TAB (XARELTO) PO SCH (17:14)
[2021-08-14 22:00] VITALS: O2SAT 94
[2021-08-15 06:00] VITALS: BP 164/81
[2021-08-15 06:21] VITALS: O2SAT 94
[2021-08-15] MEDS: IPRATROPIUM 0.5MG/ALBUTEROL 2.5MG INH SOL UD 3ML (DUONEB) NEB SCH ×3 (07:09→19:58)
[2021-08-15] MEDS: VITAMIN D 1,000 INTERNATIONAL UNITS TABLET PO SCH (08:29)
[2021-08-15] MEDS: ATORVASTATIN 20 MG TAB PO SCH (08:29)
[2021-08-15] MEDS: NYSTATIN 100,000 UNITS/GM TOPICAL PWD 15 GM TOP SCH ×2 (08:29→20:14)
[2021-08-15] MEDS: predniSONE 20 MG TAB PO SCH (08:30)
[2021-08-15] MEDS: PANTOPRAZOLE 40MG TAB (PROTONIX) PO SCH (08:30)
[2021-08-15] MEDS: FUROSEMIDE 40 MG TAB PO SCH (08:30)
[2021-08-15] MEDS: oxyBUTYnin *DITROPAN XL* 5 MG TABCR PO SCH (08:30)
[2021-08-15] MEDS: bisoproloL fumarate 5 MG TAB PO SCH (08:32)
[2021-08-15] MEDS: LOSARTAN 25 MG TAB PO SCH (08:33)
[2021-08-15 10:00] VITALS: BP 124/57
[2021-08-15 10:36] VITALS: O2SAT 95
[2021-08-15] MEDS: RIVAROXABAN 15 MG TAB (XARELTO) PO SCH (17:00)
[2021-08-15 22:17] VITALS: O2SAT 94
[2021-08-16 05:54] VITALS: BP 173/58
[2021-08-16] MEDS: IPRATROPIUM 0.5MG/ALBUTEROL 2.5MG INH SOL UD 3ML (DUONEB) NEB SCH ×3 (07:09→19:26)
[2021-08-16 09:00] VITALS: O2SAT 91
[2021-08-16] MEDS: bisoproloL fumarate 5 MG TAB PO SCH (09:00)
[2021-08-16] MEDS: LOSARTAN 25 MG TAB PO SCH (09:00)
[2021-08-16] MEDS: NYSTATIN 100,000 UNITS/GM TOPICAL PWD 15 GM TOP SCH ×2 (10:32→21:15)
[2021-08-16] MEDS: PANTOPRAZOLE 40MG TAB (PROTONIX) PO SCH (10:32)
[2021-08-16] MEDS: predniSONE 20 MG TAB PO SCH (10:32)
[2021-08-16] MEDS: VITAMIN D 1,000 INTERNATIONAL UNITS TABLET PO SCH (10:45)
[2021-08-16] MEDS: oxyBUTYnin *DITROPAN XL* 5 MG TABCR PO SCH (10:45)
[2021-08-16] MEDS: ATORVASTATIN 20 MG TAB PO SCH (10:45)
[2021-08-16] MEDS: FUROSEMIDE 40 MG TAB PO SCH (10:55)
[2021-08-16] MEDS: RIVAROXABAN 15 MG TAB (XARELTO) PO SCH (17:59)
[2021-08-17 01:40] VITALS: O2SAT 93
[2021-08-17 06:00] VITALS: BP 174/87
[2021-08-17] MEDS: IPRATROPIUM 0.5MG/ALBUTEROL 2.5MG INH SOL UD 3ML (DUONEB) NEB SCH ×3 (07:59→19:08)
[2021-08-17] MEDS: NYSTATIN 100,000 UNITS/GM TOPICAL PWD 15 GM TOP SCH ×2 (09:00→19:56)
[2021-08-17] MEDS: PANTOPRAZOLE 40MG TAB (PROTONIX) PO SCH (10:20)
[2021-08-17] MEDS: predniSONE 20 MG TAB PO SCH (10:20)
[2021-08-17] MEDS: ATORVASTATIN 20 MG TAB PO SCH (10:20)
[2021-08-17] MEDS: FUROSEMIDE 40 MG TAB PO SCH (10:20)
[2021-08-17] MEDS: oxyBUTYnin *DITROPAN XL* 5 MG TABCR PO SCH (10:20)
[2021-08-17] MEDS: VITAMIN D 1,000 INTERNATIONAL UNITS TABLET PO SCH (10:21)
[2021-08-17] MEDS: bisoproloL fumarate 5 MG TAB PO SCH (10:21)
[2021-08-17] MEDS: LOSARTAN 25 MG TAB PO SCH (10:22)
[2021-08-17 11:22] VITALS: O2SAT 93
[2021-08-17] MEDS: RIVAROXABAN 15 MG TAB (XARELTO) PO SCH (18:00)
[2021-08-18 03:01] VITALS: O2SAT 95
[2021-08-18 06:00] VITALS: BP 139/85
[2021-08-18] MEDS: IPRATROPIUM 0.5MG/ALBUTEROL 2.5MG INH SOL UD 3ML (DUONEB) NEB SCH ×3 (07:35→19:24)
[2021-08-18] MEDS: oxyBUTYnin *DITROPAN XL* 5 MG TABCR PO SCH (09:55)
[2021-08-18] MEDS: FUROSEMIDE 40 MG TAB PO SCH (09:55)
[2021-08-18] MEDS: predniSONE 20 MG TAB PO SCH (09:55)
[2021-08-18] MEDS: PANTOPRAZOLE 40MG TAB (PROTONIX) PO SCH (09:55)
[2021-08-18] MEDS: bisoproloL fumarate 5 MG TAB PO SCH (10:02)
[2021-08-18] MEDS: ATORVASTATIN 20 MG TAB PO SCH (10:02)
[2021-08-18] MEDS: VITAMIN D 1,000 INTERNATIONAL UNITS TABLET PO SCH (10:02)
[2021-08-18] MEDS: NYSTATIN 100,000 UNITS/GM TOPICAL PWD 15 GM TOP SCH ×2 (10:02→21:29)
[2021-08-18] MEDS: LOSARTAN 25 MG TAB PO SCH (10:02)
[2021-08-18 12:55] VITALS: O2SAT 91
[2021-08-18] MEDS: RIVAROXABAN 15 MG TAB (XARELTO) PO SCH (17:43)
[2021-08-18 22:00] VITALS: O2SAT 92
[2021-08-19 06:00] VITALS: BP 128/86
[2021-08-19] MEDS: IPRATROPIUM 0.5MG/ALBUTEROL 2.5MG INH SOL UD 3ML (DUONEB) NEB SCH ×3 (07:18→19:43)
[2021-08-19] MEDS: bisoproloL fumarate 5 MG TAB PO SCH (09:44)
[2021-08-19] MEDS: LOSARTAN 25 MG TAB PO SCH (09:44)
[2021-08-19] MEDS: FUROSEMIDE 40 MG TAB PO SCH (09:44)
[2021-08-19] MEDS: VITAMIN D 1,000 INTERNATIONAL UNITS TABLET PO SCH (09:44)
[2021-08-19] MEDS: PANTOPRAZOLE 40MG TAB (PROTONIX) PO SCH (09:44)
[2021-08-19] MEDS: predniSONE 20 MG TAB PO SCH (09:45)
[2021-08-19] MEDS: oxyBUTYnin *DITROPAN XL* 5 MG TABCR PO SCH (09:45)
[2021-08-19] MEDS: ATORVASTATIN 20 MG TAB PO SCH (09:45)
[2021-08-19] MEDS: NYSTATIN 100,000 UNITS/GM TOPICAL PWD 15 GM TOP SCH ×2 (09:45→20:04)
[2021-08-19] MEDS: RIVAROXABAN 15 MG TAB (XARELTO) PO SCH (18:09)
[2021-08-19 22:00] VITALS: O2SAT 93
[2021-08-20 07:23] LABS: BASO % 0.2 % (0.0-1.0); EOS % 0.1 % (0.0-3.0); HEMATOCRIT 40.7 % (36.0-47.0); HEMOGLOBIN 12.8 g/dl (12.0-15.5); LYMPH # 2.2 10^3/uL (1.5-5.0); LYMPH % 15.7 % (24.0-44.0); MEAN CORPUSCULAR HEMOGLOBIN 27.3 pg (27.0-33.0); MEAN CORPUSCULAR HGB CONC 31.4 g/dl (32.0-36.5); MEAN CORPUSCULAR VOLUME 86.8 fl (80.0-96.0); MONO # 0.8 10^3/uL (0.0-0.8); MONO % 6.1 % (2.0-8.0); NEUTROPHILS # 10.5 10^3/uL (1.5-8.5); NEUTROPHILS % 76.6 % (36.0-66.0); PLATELET COUNT, AUTOMATED 268 10^3/uL (150-450); RED BLOOD COUNT 4.69 10^6/uL (4.00-5.40); WHITE BLOOD COUNT 13.8 10^3/uL (4.0-10.0)
[2021-08-20] MEDS: IPRATROPIUM 0.5MG/ALBUTEROL 2.5MG INH SOL UD 3ML (DUONEB) NEB SCH ×3 (07:24→19:17)
[2021-08-20 07:39] LABS: ALBUMIN 3.1 GM/DL (3.2-5.2); BILIRUBIN,TOTAL 0.5 MG/DL (0.2-1.0); CALCIUM LEVEL 9.5 MG/DL (8.8-10.2); CREATININE FOR GFR 1.21 MG/DL (0.55-1.30); GLOMERULAR FILTRATION RATE 46.4 (>39); MAGNESIUM LEVEL 2.2 MG/DL (1.8-2.4); POTASSIUM SERUM 3.5 MEQ/L (3.5-5.1); TOTAL PROTEIN 5.8 GM/DL (6.4-8.2)
[2021-08-20] MEDS: PANTOPRAZOLE 40MG TAB (PROTONIX) PO SCH (09:41)
[2021-08-20] MEDS: ATORVASTATIN 20 MG TAB PO SCH (09:41)
[2021-08-20] MEDS: oxyBUTYnin *DITROPAN XL* 5 MG TABCR PO SCH (09:41)
[2021-08-20] MEDS: VITAMIN D 1,000 INTERNATIONAL UNITS TABLET PO SCH (09:41)
[2021-08-20] MEDS: FUROSEMIDE 40 MG TAB PO SCH (09:41)
[2021-08-20] MEDS: LOSARTAN 25 MG TAB PO SCH (09:42)
[2021-08-20] MEDS: bisoproloL fumarate 5 MG TAB PO SCH (09:43)
[2021-08-20] MEDS: NYSTATIN 100,000 UNITS/GM TOPICAL PWD 15 GM TOP SCH ×2 (09:43→20:25)
[2021-08-20] MEDS: RIVAROXABAN 15 MG TAB (XARELTO) PO SCH (18:11)
[2021-08-21 06:00] VITALS: BP 118/79
[2021-08-21] MEDS: IPRATROPIUM 0.5MG/ALBUTEROL 2.5MG INH SOL UD 3ML (DUONEB) NEB SCH ×3 (07:06→19:53)
[2021-08-21] MEDS: PANTOPRAZOLE 40MG TAB (PROTONIX) PO SCH (10:01)
[2021-08-21] MEDS: ATORVASTATIN 20 MG TAB PO SCH (10:02)
[2021-08-21] MEDS: NYSTATIN 100,000 UNITS/GM TOPICAL PWD 15 GM TOP SCH ×2 (10:02→19:32)
[2021-08-21] MEDS: FUROSEMIDE 40 MG TAB PO SCH (10:02)
[2021-08-21] MEDS: VITAMIN D 1,000 INTERNATIONAL UNITS TABLET PO SCH (10:02)
[2021-08-21] MEDS: LOSARTAN 25 MG TAB PO SCH (10:03)
[2021-08-21] MEDS: bisoproloL fumarate 5 MG TAB PO SCH (10:03)
[2021-08-21] MEDS: oxyBUTYnin *DITROPAN XL* 5 MG TABCR PO SCH (10:05)
[2021-08-21] MEDS: RIVAROXABAN 15 MG TAB (XARELTO) PO SCH (17:39)
[2021-08-22 06:00] VITALS: BP 120/79
[2021-08-22] MEDS: IPRATROPIUM 0.5MG/ALBUTEROL 2.5MG INH SOL UD 3ML (DUONEB) NEB SCH ×2 (07:06→14:05)
[2021-08-22] MEDS: NYSTATIN 100,000 UNITS/GM TOPICAL PWD 15 GM TOP SCH (09:00)
[2021-08-22 10:27] VITALS: BP 123/82
[2021-08-22] MEDS: LOSARTAN 25 MG TAB PO SCH (10:27)
[2021-08-22] MEDS: bisoproloL fumarate 5 MG TAB PO SCH (10:27)
[2021-08-22] MEDS: VITAMIN D 1,000 INTERNATIONAL UNITS TABLET PO SCH (10:27)
[2021-08-22] MEDS: ATORVASTATIN 20 MG TAB PO SCH (10:28)
[2021-08-22] MEDS: FUROSEMIDE 40 MG TAB PO SCH (10:28)
[2021-08-22] MEDS: oxyBUTYnin *DITROPAN XL* 5 MG TABCR PO SCH (10:28)
[2021-08-22] MEDS: PANTOPRAZOLE 40MG TAB (PROTONIX) PO SCH (10:28)
[2021-08-22] MEDS ORDERED: FURO40TA2 PO (14:49)
[2021-08-22] MEDS ORDERED: PROAAER10 INH (14:49)
== END 2021-08-22 16:51 | disposition home health service (06) | DRG 196 ==
LOC: M ED 15:36 → M ED INP 22:12 → ENRESERV 07-30 13:33 → M MSPAV 07-30 15:19
PROVIDERS: ADMIT Family Medicine; ATTEND Internal Medicine
DX: J84.9 Interstitial pulmonary disease, unspecified (principal); J96.01 Acute respiratory failure with hypoxia; I69.354 Hemiplegia and hemiparesis following cerebral infarction affecting left non-dominant side; E66.2 Morbid (severe) obesity with alveolar hypoventilation; I50.32 Chronic diastolic (congestive) heart failure; Z68.43 Body mass index [BMI] 50.0-59.9, adult; I13.0 Hypertensive heart and chronic kidney disease with heart failure and stage 1 through stage 4 chronic kidney disease, or unspecified chronic kidney disease; I48.0 Paroxysmal atrial fibrillation; E78.5 Hyperlipidemia, unspecified; R32 Unspecified urinary incontinence; E55.9 Vitamin D deficiency, unspecified; G47.00 Insomnia, unspecified; Z66 Do not resuscitate; J30.9 Allergic rhinitis, unspecified; R15.9 Full incontinence of feces; F32.A Depression, unspecified; F41.9 Anxiety disorder, unspecified; Z98.41 Cataract extraction status, right eye; Z98.42 Cataract extraction status, left eye; N18.30 Chronic kidney disease, stage 3 unspecified; Z79.01 Long term (current) use of anticoagulants; Z79.899 Other long term (current) drug therapy; Z88.5 Allergy status to narcotic agent; Z99.81 Dependence on supplemental oxygen

== ENCOUNTER → 2022-01-02 | Outpatient (CLI) | payer OTHER, MEDICAID, MEDICARE ==
[~2022-01-02] MED LIST changes: +FURO40TA2 PO; +PROAAER10 INH
[2022-01-02 17:25] LABS: BASO # 0.1 10^3/uL (0.0-0.2); BASO % 0.7 % (0.0-1.0); EOS # 0.2 10^3/uL (0.0-0.5); EOS % 1.8 % (0.0-3.0); HEMATOCRIT 45.1 % (36.0-47.0); HEMOGLOBIN 14.3 g/dl (12.0-15.5); LYMPH # 1.8 10^3/uL (1.5-5.0); LYMPH % 15.6 % (24.0-44.0); MEAN CORPUSCULAR HEMOGLOBIN 27.9 pg (27.0-33.0); MEAN CORPUSCULAR HGB CONC 31.7 g/dl (32.0-36.5); MEAN CORPUSCULAR VOLUME 87.9 fl (80.0-96.0); MONO # 0.6 10^3/uL (0.0-0.8); MONO % 5.5 % (2.0-8.0); NEUTROPHILS # 8.9 10^3/uL (1.5-8.5); NEUTROPHILS % 75.5 % (36.0-66.0); PLATELET COUNT, AUTOMATED 411 10^3/uL (150-450); RED BLOOD COUNT 5.13 10^6/uL (4.00-5.40); WHITE BLOOD COUNT 11.7 10^3/uL (4.0-10.0)
[2022-01-02 18:20] LABS: ALBUMIN 3.8 GM/DL (3.2-5.2); CALCIUM LEVEL 9.7 MG/DL (8.8-10.2); CHOLESTEROL RISK RATIO 2.351 (<5); CREATININE FOR GFR 1.2 MG/DL (0.55-1.30); GLOMERULAR FILTRATION RATE 46.9 (>39); POTASSIUM SERUM 4.7 MEQ/L (3.5-5.1); THYROID STIMULATING HORMONE 1.89 uIU/ML (0.358-3.740)
== END ==
LOC: M PLALAB 14:55
PROVIDERS: ATTEND Physician Assistant
DX: E78.2 Mixed hyperlipidemia (principal); I10 Essential (primary) hypertension; R60.9 Edema, unspecified

== ENCOUNTER → 2022-05-01 | Outpatient (CLI) | payer MEDICARE, MEDICAID ==
[2022-05-01 15:36] LABS: BASO # 0.1 10^3/uL (0.0-0.2); BASO % 0.5 % (0.0-1.0); EOS # 0.2 10^3/uL (0.0-0.5); EOS % 1.3 % (0.0-3.0); HEMATOCRIT 43.7 % (36.0-47.0); HEMOGLOBIN 13.4 g/dl (12.0-15.5); LYMPH # 1.5 10^3/uL (1.5-5.0); LYMPH % 12.4 % (24.0-44.0); MEAN CORPUSCULAR HEMOGLOBIN 27.2 pg (27.0-33.0); MEAN CORPUSCULAR HGB CONC 30.7 g/dl (32.0-36.5); MEAN CORPUSCULAR VOLUME 88.6 fl (80.0-96.0); MONO # 0.7 10^3/uL (0.0-0.8); MONO % 5.7 % (2.0-8.0); NEUTROPHILS # 9.3 10^3/uL (1.5-8.5); NEUTROPHILS % 79.7 % (36.0-66.0); PLATELET COUNT, AUTOMATED 358 10^3/uL (150-450); RED BLOOD COUNT 4.93 10^6/uL (4.00-5.40); WHITE BLOOD COUNT 11.7 10^3/uL (4.0-10.0)
[2022-05-01 16:05] LABS: THYROID STIMULATING HORMONE 1.738 uIU/ML (0.55-4.78)
[2022-05-01 16:06] LABS: ALBUMIN 3.5 G/DL (3.2-5.2); BILIRUBIN,TOTAL 0.9 MG/DL (0.3-1.2); CALCIUM LEVEL 9.7 MG/DL (8.3-10.6); CREATININE FOR GFR 1.3 MG/DL (0.55-1.30); GLOMERULAR FILTRATION RATE 42.6 (>39); POTASSIUM SERUM 4.2 MMOL/L (3.5-5.1); TOTAL PROTEIN 6.6 G/DL (5.7-8.2)
== END ==
LOC: M PLALAB 14:24
PROVIDERS: ATTEND Physician Assistant
DX: R79.89 Other specified abnormal findings of blood chemistry (principal); I50.9 Heart failure, unspecified

== ENCOUNTER → 2022-06-24 | Outpatient (CLI) | payer OTHER, MEDICAID | LOC: M WHC 13:40 | PROVIDERS: ATTEND Physician Assistant | DX: Z12.31 Encounter for screening mammogram for malignant neoplasm of breast (principal) ==

== ENCOUNTER → 2022-08-06 | Outpatient (CLI) | payer MEDICARE ==
[2022-08-06 13:31] LABS: BASO # 0.1 10^3/uL (0.0-0.2); BASO % 0.7 % (0.0-1.0); EOS # 0.3 10^3/uL (0.0-0.5); EOS % 1.8 % (0.0-3.0); HEMATOCRIT 48.4 % (36.0-47.0); HEMOGLOBIN 14.6 g/dl (12.0-15.5); LYMPH # 1.2 10^3/uL (1.5-5.0); LYMPH % 9.1 % (24.0-44.0); MEAN CORPUSCULAR HEMOGLOBIN 27.3 pg (27.0-33.0); MEAN CORPUSCULAR HGB CONC 30.2 g/dl (32.0-36.5); MEAN CORPUSCULAR VOLUME 90.6 fl (80.0-96.0); MONO # 0.6 10^3/uL (0.0-0.8); MONO % 4.1 % (2.0-8.0); NEUTROPHILS # 11.3 10^3/uL (1.5-8.5); NEUTROPHILS % 83.5 % (36.0-66.0); PLATELET COUNT, AUTOMATED 461 10^3/uL (150-450); RED BLOOD COUNT 5.34 10^6/uL (4.00-5.40); WHITE BLOOD COUNT 13.6 10^3/uL (4.0-10.0)
[2022-08-06 14:01] LABS: ALBUMIN 3.6 G/DL (3.2-5.2); BILIRUBIN,TOTAL 0.8 MG/DL (0.3-1.2); CALCIUM LEVEL 9.5 MG/DL (8.3-10.6); CHOLESTEROL RISK RATIO 2.39 (<5); CREATININE FOR GFR 1.5 MG/DL (0.55-1.30); GLOMERULAR FILTRATION RATE 36.1 (>39); HDL CHOLESTEROL 50.1 MG/DL (>40); LDL CHOLESTEROL 49.3 MG/DL (<100); NON-HDL-C 69.9 MG/DL; POTASSIUM SERUM 3.8 MMOL/L (3.5-5.1); TOTAL PROTEIN 6.9 G/DL (5.7-8.2)
== END ==
LOC: M PLALAB 09:24
PROVIDERS: ATTEND Physician Assistant
DX: R79.89 Other specified abnormal findings of blood chemistry (principal); F32.9 Major depressive disorder, single episode, unspecified; I50.9 Heart failure, unspecified